=== PATIENT | female | born 1960 | race Caucasian/White ===

== ENCOUNTER 2024-12-16 09:50 | Outpatient (CLI) | payer OTHER, SELFPAY ==
--- NOTE | ~2024-12-16 | MR_ITS ---
MRI of the left shoulder Technique: Axial proton-density fat-sat images, coronal proton density fat-sat and T2 fat-sat images, and sagittal T1-weighted and T2 fat-sat images were acquired. Clinical History: Rotator cuff tear Findings: There is mild AC joint degenerative change with small amount of fluid in the joint space. C oracoclavicular, coracoacromial, and coracohumeral ligaments appear intact. There is full-thickness tear involving essentially the entire supraspinatus tendon. Fluid-filled gap measures approximately 2.7 x 2.4 cm in extent. Infraspinatus tendon appears to be intact. Subscapular is tendon is intact with advanced tendinosis. Tendon of the long head of the biceps is intact with pr obable severe intra-articular tendinosis. There is extensive intrasubstance degenerative signal in the superior labrum without definite detache d, discrete labral tear. Inferior glenohumeral ligament is intact. There is moderate glenohumeral joint effusion with fluid pa ssing through the rotator cuff defect into the subacromial/subdeltoid bursa. No significant degenerat elmer change of the glenohumeral joint. No muscle atrophy or edema. Impression: Complete, full-thickness tear of the entire supraspinatus tendon, as detailed above. Rotator cuff tendinosis, as above. Degenerative signal of the labrum without definite tear. Moderate glenohumeral joint effusion. Mild AC joint degenerative change. Reviewed, dictated and finalized at [facility]. Impression: Complete, full-thickness tear of the entire supraspinatus tendon, as detailed a lauri. Rotator cuff tendinosis, as above. Degenerative signal of the labrum without definite tear. Moderate glenohumeral joint effusion. Mild AC joint degenerative change.
--- OUTSIDE RECORDS SUMMARY | 2024-12-16 10:01 | XMS_ITS | Data Portability ---
Author Organization [facility] Address [address] [place] [address] Care Team Providers Care Ironworker Wire Fence Erector Name Role Phone SAMIR JORDAN River Rafting Guide GRACE ROSSI Gear Milling Machine Set Up Operator [phone] KRISTIAN MENDEZ Primary Care Provider CATARINO GOMEZ Broom Man Assessment No assessment recorded. Plan of Treatment Reminders Order Date Submit Date Provider Last Modified By Organization Details Last Modified Time Details Appointments ANY 15 2024 01:15P Krystal Mendez MD Not available Not available Not available Lab glucose, fingersti ck, blood 2023 024 [email or web address] In-Office Order, Internal Use Only DO Not Attach Compendium DO Not Attach Compendium, Do Not Delete/merge, [id number] 07/02/2024 16:23:14 HbA1c (hemoglob in A1c), blood 2023 024 [facility], [address], [address], [place], [address], 07/03/2024 06:19:14 HIV 1 + 2, meaningfu l use set 2023 024 [facility], [address], [address], [place], [address], 07/03/2024 06:19:15 Referral neurologi lonny surgeon referral 2024 025 [facility], [address] [place], [address], 11/23/2024 13:52:58 urologist referral 2023 024 JULIETTE Thomas MD, [address] [place] [address], [place], [address], 01/10/2024 18:36:23 Procedures None recorded. Surgeries None recorded. Imaging MRI, lumbar spine, w/o contrast 2023 024 [facility] [address] [place], [address], 03/12/2024 14:44:47 bone density 2023 024 [facility] ([facility]), [address] [place], [address], 10/01/2024 17:29:58 MAMMO, screening , digital, bilateral 2023 024 [facility] ([facility]), [address] [place], [address], 08/27/2024 16:02:59 Medication Orders Wellbutri n SR 150 mg tablet, 12 hr sustained -release 2024 025 [facility], [address] [place] [address], [phone], 11/28/2024 17:01:57 Patient TargetsNo targets recorded. Patient Instructions Encounter Date Encounter Id Patient Instructions Last Modified By Organization Details Last Modified Time 02/28/2024 [id number] When You Want to Lose Weight: Care Instructions [email or web address] Not available 02/28/2024 17:27:03 07/02/2024 [id number] knee arthritis: care instructions [email or web address] Not available 07/02/2024 16:27:43 learning about type 1 diabetes [email or web address] Not available 07/02/2024 16:23:14 type 1 diabetes: care instructions [email or web address] Not available 07/02/2024 16:23:14 When You Want to Lose Weight: Care Instructions [email or web address] Not available 07/02/2024 16:23:13 learning about high blood pressure [email or web address] Not available 07/02/2024 16:23:14 HIV testing: car e instructions [email or web address] Not available 07/02/2024 16:23:14 10/23/2024 [id number] sleep apnea: car e instructions [email or web address] Not available 10/23/2024 17:48:58 When You Want to Lose Weight: Care Instructions [email or web address] Not available 10/23/2024 17:48:57 learning about high blood pressure dlebeau Not available 10/23/2024 17:48:58 learning about mood disorders dlebeau Not available 10/23/2024 17:48:58 11/22/2024 [id number] lumbar spinal stenosis: care instructions [email or web address] Not available 11/22/2024 15:38:28 When You Want to Lose Weight: Care Instructions [email or web address] Not available 11/22/2024 15:38:28 learning about high blood pressure dlebeau Not available 11/22/2024 15:38:28 learning about mood disorders dlebeau Not available 11/22/2024 15:38:28 Patient was give n a copy of her referral and advised to call to schedule an appointment. [email or web address] Not available 11/22/2024 15:39:07 Reason for Referral Urologist Referral for Urge incontinence of urine Referring Physician: Jaelyn Stcok, Family Medicine, Encounter Date: 01/10/2024 Neurological Surgeon Referra l for Spinal stenosis of lumbar region Referring Physician: Kristian Mendez Family Medicine, Encounter Date: 11/22/2024 Results Created Date Observation Date Name Description Value Unit Range Abnormal Flag Note LastModifiedBy Organization Detail LastModifiedTime 01/09/20 24 01/09/2024 gluco se, finge rstic k, blood Blood Glucose: mg/dl 96 Not Available In-Off ice Order Internal Use Only DO Not Attach Compendium DO Not Attach Compendium, Do Not Delete/merge, [id number] 01/09/2024 15:54:03 12/09/07/03/2024 HEMOG LOBIN A1C hemoglobin A1C 7.0 % 4.8-5. 6 above high normal Predi abete s: 5.7 - 6.4 Diabe javon: >6.4 Glyce roland contr ol for adult s with diabe javon: <7.0 Not Available [facility] ([facility]) [address] [facility] [address], [place], [address], 07/03/2024 06:19:13 07/02/20 24 07/03/2024 HIV AB/P2 4 AG WITH REFLE X HIV Ab/P24 Ag screen NON REACTI VE nonrea ctive HIV-1 /HIV- 2 antib odies and HIV-1 p24 antig en were NOT detec edin. There is no labor atory evide nce of HIV infec tion. HIV Negat elmer Not Available [facility] ([facility]) [address] [facility] [address], [place], [address], 07/03/2024 06:19:15 07/02/20 24 07/02/2024 gluco se, finge rstic k, blood Blood Glucose: mg/dl 77 Not Available In-Off ice Order Internal Use Only DO Not Attach Compendium DO Not Attach Compendium, Do Not Delete/merge, [id number] 07/02/2024 15:57:29 01/17/20 24 01/17/2024 XR, lumba r spine No observ ation record ed. [address], [address], 02/28/2024 17:16:29 02/13/20 24 02/10/2024 PET, myoca rdial perfu cheryl No observ ation record ed. [facility] [address], [place], [address], 02/28/2024 17:16:29 02/13/20 24 02/10/2024 cardi ac stres s test No observ ation record ed. [facility] [address], [place], [address], 02/28/2024 17:16:28 02/27/20 24 2024 trans -thor acic echoc ardio gram (TTE) (PROC ) No observ ation record ed. [facility] [address], [place], [address], 08/27/2024 16:04:56 02/27/20 24 2024 stres s echoc ardio gram with doppl er color flow (PROC ) No observ ation record ed. [facility] [address], [place], [address], 02/28/2024 17:16:28 02/27/20 24 2024 US, doppl er, venou s No observ ation record ed. [facility] [address], [place], [address], 02/28/2024 17:16:28 02/27/20 24 2024 arter ial study , lower extre mity, compl ete No observ ation record ed. [facility] [address], [place], [address], 06/20/2024 15:44:36 02/27/20 24 2024 ankle brach ial index No observ ation record ed. [facility] [address], [place], [address], 02/28/2024 17:16:28 03/12/20 24 03/12/2024 MRI, shoul brock, w/wo contr ast No observ ation record ed. [facility] [address] [place], [address], 07/02/2024 16:15:46 03/12/20 24 03/12/2024 MRI, lumba r spine , w/o contr ast No observ ation record ed. [facility] [address] [place], [address], 07/02/2024 16:15:45 08/21/1908/21/2024 MAMMO , scree raeann, bilat eral No observ ation record ed. [facility] [address] [place], [address], 10/23/2024 12:45:45 08/21/19 25 08/21/2024 MAMMO , scree raeann, digit al, bilat eral No observ ation record ed. [facility] [address] [place], [address], 10/23/2024 12:45:45 09/20/19 25 09/20/2024 bone densi ty No observ ation record ed. [facility] [address] [place], [address], 10/23/2024 12:45:45 Result Notes None recorded. Problems Name Problem SNOMED Code Status Onset Date Resolution Date Notes Provider Name and Address Organization Details Recorded Time Insomnia 596385449 Active 2021 Not Available [facility] 4 07:38:09 Morbid obesity 077354753 Active 2021 Not Available [facility] 4 07:38:09 Stented coronary artery 876838487 Active 2021 Not Available [facility] 4 07:38:09 Obstructi ve sleep apnea syndrome 52137075 Active 2021 Does not tolerate cpap Not Available [facility] 4 07:38:09 Postopera tive hypothyro idism 12198004 Active 2022 Kristian Mendez MD Attn: Accounting ,[address] [place], [address] , [facility] 4 11:12:37 Hyperglyc emia due to type 1 diabetes mellitus 36808250529 9101 Active 2022 Kristian Mendez MD Attn: Accounting ,[address] [facility], [place], [address] , [facility] 4 11:12:37 Spinal stenosis of lumbar region 81155747 Active 2023 Kristian Mendez MD Attn: Accounting ,[address] [facility], [place], [address] , [facility] 4 22:41:51 Coronary atheroscl erosis 408399579 Active Kristian Mendez MD Attn: Accounting ,[address] [facility], [place], [address] , [facility] 4 16:24:09 Osteopeni a 525597354 Active 2024 Kristian Mendez MD Attn: Accounting ,[address] [facility], [place], [address] , [facility] 5 16:45:23 Type 1 diabetes mellitus 95724962 Active Managed by endocrine (Dr Stanley) Kristian Mendez MD Attn: Accounting ,[address] [facility], [place], [address] , [facility] 4 10:50:49 Periphera l nerve disease 554551611 Active Not Available [facility] 4 07:38:09 Essential hypertens ion 91740914 Active Not Available [facility] 4 07:38:09 Glaucoma 22490617 Active Not Available [facility] 4 07:38:09 Depressiv e disorder 94736366 Active Not Available [facility] 4 07:38:09 Menopause present 412084817 Active Not Available [facility] 4 07:38:09 Hypothyro idism 06825311 Active Not Available [facility] 4 07:38:09 Pain in right knee Active Not Available [facility] 4 07:38:09 Problem Notes None recorded. Procedures Surgical History Date Name Laterality Status Provider Name and Address Organization Details Recorded Time 5 Date of Last Mammogram completed Lori Bolivar MA [facility] 08/27/2024 16:02:33 4 procedure on foot completed Lori Bolivar MA [facility] 01/10/2024 15:49:45 0 Date of Last Pap Smear completed Lori Bolivar MA [facility] 01/10/2024 16:04:58 6 Colonoscopy with biopsy completed Bonny Kim RN [facility] 05/11/2016 22:50:32 6 Egd biopsy single/multiple completed Bonny Kim RN [facility] 05/11/2016 22:51:29 4 Most Recent Mammogram completed Jillian Espinoza [facility] 05/13/2015 14:44:54 5 Caesarean Section completed Lara Esteves MA [facility] 06/27/2014 15:39:17 2 Caesarean Section completed Lara Esteves MA [facility] 06/27/2014 15:39:17 Knee Surgery completed Ahmet Knutson MA [facility] 10/06/2020 16:55:53 Angioplasty With Stent completed Ahmet Knutson MA [facility] 10/06/2020 16:56:12 Carpal tunnel surgery completed Lori Bolivar MA [facility] 01/10/2024 15:50:50 Carpal tunnel surgery completed Lori Bolivar MA [facility] 01/10/2024 15:50:38 Tubal Ligation completed Lara Esteves MA [facility] 06/27/2014 15:39:17 Imaging Results Imaging Date Name Status LastModified by Organization Details LastModified Time 01/17/2024 XR, lumbar spine completed [facility] [address] [place], [address], 02/28/2024 17:16:29 02/10/2024 PET, myocardial perfusion completed [facility] [address], [place], [address], 02/28/2024 17:16:29 02/10/2024 cardiac stress test completed [facility] [address], [place], [address], 02/28/2024 17:16:28 2024 trans-thoracic echocardiogram (TTE) (PROC) completed [facility] [address], [place], [address], 08/27/2024 16:04:56 2024 stress echocardiogram with doppler color flow (PROC) completed [facility] [address], [place], [address], 02/28/2024 17:16:28 2024 US, doppler, venous completed [facility] [address], [place], [address], 02/28/2024 17:16:28 2024 arterial study, lower extremity, complete completed [facility] [address], [place], [address], 06/20/2024 15:44:36 2024 ankle brachial index completed [facility] [address], [place], [address], 02/28/2024 17:16:28 03/12/2024 MRI, shoulder, w/wo contrast completed [facility] [address] [place], [address], 07/02/2024 16:15:46 03/12/2024 MRI, lumbar spine, w/o contrast completed [facility] [address] [place], [address], 07/02/2024 16:15:45 08/21/2024 MAMMO, screening, bilateral completed [facility] [address] [place], [address], 10/23/2024 12:45:45 08/21/2024 MAMMO, screening, digital, bilateral completed [facility] ([facility] [address] [place], [address], 10/23/2024 12:45:45 09/20/2024 bone density completed [facility] [address] [place], [address], 10/23/2024 12:45:45 Procedure Notes None recorded. Medical Equipment None Reported. Allergies Allergen ID Allergen Name Allergen Category Reaction Reaction Severity Criticality Documentation Date Start Date Code Code System Note Provider Name and Address Organization Details Recorded Time 040177 Tylenol with Codeine medicatio n itching nausea vomiting severe severe severe Not available 07/26/2019 85758 6 RxNorm [facility] [place] [facility] 15:01:48 477544 metoprolo l Not available dizziness Not available Not available 11/01/20232022 6918 RxNorm Kristian Mendez MD Attn: Kendra martínez,[address] [place], [address], [facility] 4 11:12:47 085642 atorvasta tin calcium medicatio n myalgias (muscle pain) Not available Not available 11/01/20232022 16481 RxNorm Kristian Mendez MD Attn: Kendra martínez,[address] [place], [address], [facility] 4 11:12:47 5616 codeine medicatio n Not available Not available Not available 06/27/2014 2670 RxNorm Other react ions and sever ities : 'Adve rse react ion to subst ance' . Kristian Mendez MD Attn: Kendra martínez,[address] [place], [address], [facility] 4 16:25:51 Medications Name Sig Start Date Stop Date Status Note LastModified by Organization Details LastModified Time omnipod op5 controlle r USE FOR INSULIN ADMINIST RATION 10/31 completed Not Available Not Available Not Available Prescript ion - Prior Authoriza tion Request 07/26 completed Not Available Not Available Not Available cyclobenz aprine 10 mg tablet 07/26 completed Not Available Not Available Not Available atorvasta tin 40 mg tablet Take 1 tablet every day by oral route for 90 days. 05/05 completed Not Available Not Available Not Available methocarb nael 500 mg tablet 07/26 completed Not Available Not Available Not Available levothyro xine 175 mcg tablet TAKE ONE TABLET BY MOUTH EVERY MORNING FOR THYROID 06/20 completed Not Available Not Available Not Available bupropion HCl SR 150 mg tablet,12 hr sustained -release TAKE ONE TABLET BY MOUTH TWICE DAILY EVERY MORNING AND EVERY EVENING FOR mood active Not Available Not Available No t Available levothyro xine 137 mcg tablet TAKE 1 Tablet BY MOUTH ONCE EVERY DAY IN THE MORNING BEFORE BREAKFAS T FOR THYROID active Not Available Not Available No t Available atorvasta tin 80 mg tablet TAKE ONE TABLET BY MOUTH DAILY AT BEDTIME FOR CHOLESTE ROL active Not Available Not Available No t Available prednison e 10 mg tablet TAKE ONE TABLET BY MOUTH THREE TIMES DAILY FOR 3 DAYS, THEN TAKE ONE TABLET TWICE DAILY FOR 2 DAYS, THEN TAKE ONE TABLET ONCE FOR ONE DAY 10/23 completed Not Available Not Available Not Available gabapenti n 600 mg tablet Take 1 tablet 3 times a day by oral route as directed for 90 days. 10/29 completed Not Available Not Available Not Available doxycycli ne hyclate 100 mg capsule Take 1 capsule by mouth every day 07/26 completed Not Available Not Available Not Available Glucagon Emergency Kit 1 mg solution for injection Use as directed per packagin g label. Should be used SC route. active Not Available Not Available No t Available doxepin 25 mg capsule TAKE ONE CAPSULE BY MOUTH AT BEDTIME NEEDED active Not Available Not Available No t Available hydrocodo ne 5 mg-acetam inophen 325 mg tablet 07/26 completed Not Available Not Available Not Available Nystop 100,000 unit/gram topical powder APPLY TO THE AFFECTED AREA(S) THREE TIMES DAILY, IN THE MORNING, AT MID-DAY & AT BEDTIME active Not Available Not Available No t Available Claritin 10 mg tablet Take 1 tablet every day by oral route as directed . 07/26 completed Not Available Not Available Not Available sucralfat e 1 gram tablet TAKE 1 TABLET BY MOUTH TWO TIMES A DAY FOR STOMACH 02/15 completed Not Available Not Available Not Available lisinopri l 20 mg tablet TAKE ONE TABLET BY MOUTH EVERY DAY FOR BLOOD PRESSURE 06/20 completed Not Available Not Available Not Available ondansetr on HCl 4 mg tablet active Not Available Not Available No t Available clopidogr el 75 mg tablet TAKE ONE TABLET BY MOUTH EVERY MORNING TO PREVENT STROKE active Not Available Not Available No t Available ciproflox acin 500 mg tablet active Not Available Not Available No t Available sulfameth oxazole 800 mg-trimet hoprim 160 mg tablet TAKE ONE TABLET EVERY TWELVE HOURS BY MOUTH FOR FIVE DAYS 10/27 completed Not Available Not Available Not Available aspirin 81 mg tablet,de layed release Take 1 tablet every day by oral route as directed . active Not Available Not Available No t Available doxycycli ne monohydra te 100 mg tablet Take 1 tablet twice a day by oral route for 10 days. active Not Available Not Available No t Available tramadol 50 mg tablet TAKE ONE TABLET BY MOUTH FOUR TIMES DAILY NEEDED FOR PAIN active Not Available Not Available No t Available bisoprolo l fumarate 5 mg tablet Take 1 tablet twice a day by oral route for 90 days. 07/26 completed Not Available Not Available Not Available potassium chloride ER 20 mEq tablet,ex tended release(p art/cryst ) TAKE ONE TABLET BY MOUTH THREE TIMES A WEEK FOR POTASSIU M REPLACEM ENT active Not Available Not Available No t Available famotidin e 20 mg tablet active Not Available Not Available Not Available Nitrostat 0.4 mg sublingua l tablet 05/05 completed Not Available Not Available Not Available Humalog U-100 Insulin 100 unit/mL subcutane ous solution INJECT VIA OMNIPOD. MAX DAILY DOSE OF 100 UNITS active Not Available Not Available No t Available OneTouch Ultra Test strips USE TO TEST BLOOD SUGAR 4-6 TIMES DAILY active Not Available Not Available No t Available meclizine 25 mg tablet take 1 to 2 tablets by mouth three times daily as needed for dizzines s 05/05 completed Not Available Not Available Not Available benzonata te 100 mg capsule active Not Available Not Available Not Available hydrocodo ne 7.5 mg-acetam inophen 325 mg tablet TAKE ONE TABLET BY MOUTH EVERY 6 HOURS NEEDED FOR MODERATE (4-6) PAIN 06/15 completed Not Available Not Available Not Available cephalexi n 500 mg capsule TAKE ONE CAPSULE BY MOUTH TWICE DAILY EVERY MORNING AND EVERY EVENING UNTIL ALL TAKEN FOR INFECTIO N active UTI (urgent care) Not Available Not Available Not Available metformin 1,000 mg tablet Take 1 tablet twice a day by oral route for 90 days. 02/15 completed Not Available Not Available Not Available nitrofura ntoin macrocrys olivia 100 mg capsule 05/05 completed Not Available Not Available Not Available lisinopri l 10 mg tablet TAKE ONE TABLET BY MOUTH EVERY MORNING FOR BLOOD PRESSURE active Not Available Not Available No t Available glimepiri de 4 mg tablet Take 1 tablet every day by oral route for 90 days. active Not Available Not Available No t Available promethaz ine 25 mg tablet 05/05 completed Not Available Not Available Not Available glucose 4 gram chewable tablet active Not Available Not Available Not Available gabapenti n 300 mg capsule TAKE THREE CAPSULES BY MOUTH THREE TIMES DAILY, IN THE MORNING, AT MID-DAY & AT BEDTIME FOR PAIN MANAGEME NT active Not Available Not Available No t Available diclofena c sodium 75 mg tablet,de layed release TAKE 1 TABLET BY MOUTH TWICE DAILY NEEDED FOR PAIN 07/26 completed Not Available Not Available Not Available levothyro xine 200 mcg tablet TAKE 1 TABLET BY MOUTH EVERY MORNING FOR THYROID 02/15 completed Not Available Not Available Not Available lisinopri l 5 mg tablet TAKE 1 TABLET BY MOUTH DAILY 05/05 completed Not Available Not Available Not Available furosemid e 20 mg tablet TAKE ONE TABLET BY MOUTH ONCE WEEKLY IN THE MORNING FOR FLUID RETENTIO N active Not Available Not Available No t Available metoprolo l succinate ER 25 mg tablet,ex tended release 24 hr 03/17 completed Not Available Not Available Not Available Novolog U-100 Insulin aspart 100 unit/mL subcutane ous solution Inject by subcutan eous route per insulin pump protocol (three month supply with refills) 01/05 completed gets per [address] [place] Med[facility] Not Available Not Available Not Available estradiol 0.01% (0.1 mg/gram) vaginal cream INSERT 1 APPLICAT ORFUL VAGINALL Y 3 TIMES A WEEK 02/15 completed Not Available Not Available Not Available levofloxa emerita 750 mg tablet TAKE 1 TABLET BY MOUTH EVERY DAY 02/01 completed Not Available Not Available Not Available zolpidem 10 mg tablet TAKE ONE TABLET BY MOUTH AT BEDTIME NEEDED active Not Available Not Available No t Available methylpre dnisolone 4 mg tablets in a dose pack 07/26 completed Not Available Not Available Not Available lisinopri l 40 mg tablet TAKE 1 TABLET BY MOUTH DAILY TO LOWER BLOOD PRESSURE 10/27 completed Not Available Not Available Not Available doxycycli ne hyclate 100 mg tablet 02/19 completed Not Available Not Available Not Available gentamici n 0.1 % topical ointment APPLY TO THE AFFECTED AREA(S) of TO WOUND DAILY. cover with gauze 10/31 completed Not Available Not Available Not Available naproxen 500 mg tablet Take 1 tablet by mouth twice a day as needed 07/26 completed Not Available Not Available Not Available levothyro xine 112 mcg tablet 02/15 completed Not Available Not Available Not Available Ventolin HFA 90 mcg/actua tion aerosol inhaler active Not Available Not Available Not Available Paradigm Buda 3 mL Change every 2 days 07/26 completed Not Available Not Available Not Available Silhouett e infusion set Change every 2 days as directed 07/26 completed Not Available Not Available Not Available Pneumovax -23 25 mcg/0.5 mL injection syringe 07/26 completed Not Available Not Available Not Available Novolog PenFill U-100 Insulin aspart 100 unit/mL subcutane ous cartridg Inject 3 mL as needed by subcutan eous route. 07/26 completed Not Available Not Available Not Available ciclopiro x 0.77 % topical cream APPLY TO THE AFFECTED AREA(S) ON FEET ONCE OR TWICE DAILY 01/09 completed Not Available Not Available Not Available ezetimibe 10 mg tablet TAKE ONE TABLET BY MOUTH ONCE DAILY AT BEDTIME FOR CHOLESTE ROL active Not Available Not Available No t Available metoprolo l tartrate 25 mg tablet TAKE 1 TABLET BY MOUTH EVERY DAY 07/26 completed Not Available Not Available Not Available nitrofura ntoin monohydra te/macroc rystals 100 mg capsule TAKE ONE CAPSULE BY MOUTH EVERY 12 HOURS 10/27 completed Not Available Not Available Not Available Vitamin B-12 10/31 completed Not Available Not Available Not Available vitamin E 10/31 completed Not Available Not Available Not Available Fish Oil active Not Available Not Avai lable Not Available Apidra U-100 Insulin 100 unit/mL subcutane ous solution active Not Available Not Available Not Available peg 3350 240 gram-elec trolytes 22.72 gram-6.72 g-5.84 g powdr for soln 05/05 completed Not Available Not Available Not Available Calcium 600 + D(3) 600 mg-10 mcg (400 unit) tablet Take 2 tablets every day by oral route, for strong bones. 2024 active Not Available Not Available Not Avai lable Travel Sickness (meclizin e) 25 mg chewable tablet 05/05 completed Not Available Not Available Not Available [employer] (w-vitami ns) 03/17 completed Not Available Not Available Not Available TRUEplus Lancets 28 gauge 10/31 completed Not Available Not Available Not Available Creon 36,000 unit-114, 000 unit-180, 000 unit capsule,d elayed release TAKE ONE CAPSULE BY MOUTH THREE TIMES DAILY IN THE MORNING & AT3PM & AT BEDTIME active Not Available Not Available No t Available Trulicity 0.75 mg/0.5 mL subcutane ous pen injector Take 0.5 ml under the skin every week. 10/23 completed Not Available Not Available Not Available Ozempic 0.25 mg or 0.5 mg (2 mg/1.5 mL) subcutane ous pen injector INJECT 0.25MG UNDER THE SKIN ONCE WEEKLY X 4 WEEKS THEN INCREASE TO 0.5MG ONCE WEEKLY THEREAFT ER 02/15 completed Not Available Not Available Not Available Dexcom G6 Sensor device USE DIRECTED , CHANGE EVERY 10 DAYS active Not Available Not Available No t Available Dexcom G6 Transmitt er device USE DIRECTED , CHANGE EVERY THREE MONTHS active Not Available Not Available No t Available Omnipod Dash Pods (Gen 4) subcutane ous cartridge CHANGE pod EVERY 3 DAYS 10/31 completed Not Available Not Available Not Available OneTouch Ultra2 Meter USE DIRECTED active Not Available Not Available No t Available OneTouch Delica Plus Lancet 33 gauge USE TO TEST BLOOD SUGAR 4-6 times daily active Not Available Not Available No t Available Flublok Quad (PF) 180 mcg (45 mcg x 4)/0.5 mL IM syringe 07/26 completed Not Available Not Available Not Available Baqsimi 3 mg/actuat ion nasal spray active Not Available Not Available Not Available FreeStyle Kaylee 2 Sensor kit CHANGE EVERY 14 DAYS 03/29 completed Not Available Not Available Not Available FreeStyle Kaylee 2 Robinson USE DIRECTED 03/29 completed Not Available Not Available Not Available Ozempic 1 mg/dose (4 mg/3 mL) subcutane ous pen injector INJECT 1MG UNDER THE SKIN EVERY WEEK AT DINNER 06/20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
--- OUTSIDE RECORDS SUMMARY | 2024-12-16 10:01 | XMS_ITS | Data Portability ---
Author Organization [place] [facility] [employer], Main Office Address [address] [place] [address] Assessment Encounter Date Assessment Date Assessment LastModified by Organization Details LastModified Time 12/29/2023 12/29/2023 By history and exam the patient is noted to have impingement with rotator cuff type tendinitis possibly partial-thicknes s tearing. She does have good strength today but lot of pain with testing. We talked about treatment options we are going to start with a course of physical therapy for range of motion strengthening, we talked about a shot of cortisone and oral prednisone she wanted proceed therefore under sterile conditions I injected the patient's left shoulder subacromial space in the office with 4 cc of 0.5% bupivacaine and 20 mg of Kenalog. Patient tolerated procedure well. I will see her back after 1 month of treatment see how she is doing. If her symptoms continue to be significant we will get an MRI scan. She voiced understanding agrees above plan she will call for any further problems difficulties or questions. Not available 12/29/2023 14:26:03 02/06/2024 02/06/2024 The patient has rotator cuff tendinitis and impingement of the left shoulder. We talked about treatment options from here she is going to continue with her physical therapy she has only had 2 sessions so far I have advised her to work on it every day on her own at home as well. It is too soon for another shot of cortisone she can not take oral anti-inflammator y medication due to the fact that she is on chronic blood thinners so we are a bit restricted in what we can do. She states that the oral prednisone medication made her blood sugar get up above 400 so we are going to avoid that as well. I will see her back after therapy is completed give it time I will see her back in 6-8 weeks for another recheck of her symptoms continue an MRI scan may be indicated. She voiced understanding agrees above plan she will call for any further problems difficulties or questions. Not available 02/06/2024 10:54:16 11/26/2024 11/26/2024 The patient has what appears to be a significant full-thickness rotator cuff tendon tear of the left shoulder with AC joint arthrosis and what appears to be a degenerative labral tear also. We are somewhat limited in her options she can not take oral anti-inflammator y medication and oral prednisone caused her blood sugar to go over 400. The MRI scan shows significant findings however this is now 9-month-old she has other multiple medical problems including insulin-dependen t diabetes hypertension history of heart stent placement dyslipidemia and exocrine pancreatic insufficiency. I will have Dr. Gabriel review her MRI scan see if he thinks it is worth repeating the MRI scan, she is considering surgical repair however we will need to get Dr. Gabriel s opinion on this. We talked about the fact that the rotator cuff may be a scarred retracted or irrepairable at this point. Also she is at a higher risk of failure of the repair wound healing problems and other postop complications due to her multiple medical issues. We will see what Dr. Gabriel wants to do with her shoulder from here. She voiced understanding agrees with the above plan we will get her set up with an appointment in the near future. She will call for any further problems difficulties or questions. Not available 11/26/2024 11:41:31 Plan of Treatment Reminders Order Date Submit Date Provider Last Modified By Organization Details Last Modified Time Details Appointments Any 5 2024 10:25A Krystal Gabriel MD Not available Not available Not available Lab lipid panel, serum 2022 023 [facility] (One Call Scheduling), [address] [place], [address], 01/31/2023 19:13:53 HbA1c (hemoglob in A1c), blood 2022 023 [facility] (One Call Scheduling), [address] [place], [address], 02/01/2023 01:28:40 CMP, serum or plasma 2022 023 [facility] (One Call Scheduling), [address] [place], [address], 01/31/2023 19:13:49 microalbu min/creat inine, mass ratio, urine [email or web address] (One Call Scheduling), [address] [place], [address], 12/07/2022 10:04:02 C-peptide , serum 2022 023 [facility] (One Call Scheduling), [address] [place], [address], 02/01/2023 12:12:24 T3, free, serum or plasma 2022 023 [facility] (One Call Scheduling), [address] [place], [address], 01/31/2023 19:27:45 TSH, serum or plasma 2022 023 [facility] (One Call Scheduling), [address] [place], [address], 01/31/2023 19:40:17 T4, free, serum 2022 023 [facility] (One Call Scheduling), [address] [place], [address], 01/31/2023 19:27:50 Referral physical therapist referral - Please contact patient to schedule. ..Thank you [id number] [facility], [address] [place], [address], 01/18/2024 08:20:29 Procedures injection /aspirati on joint/bur sa (PROC) 2023 024 [email or web address] In-Office Order, Internal Use Only DO Not Attach Compendium DO Not Attach Compendium, Do Not Delete/merge, [id number] 12/29/2023 14:26:45 Surgeries None recorded. Imaging XR, shoulder 2023 024 [email or web address] [facility], [address], [place], [address], 12/29/2023 14:53:30 Medication Orders bupivacai ne HCl 0.5 % (5 mg/mL) injection solution 2023 024 [address] [facility], [address] [place] [address], [id number], 12/29/2023 14:53:30 Kenalog 10 mg/mL suspensio n for injection 2023 024 [address] [facility], [address] [place] [address], [id number], 12/29/2023 14:53:30 prednison e 10 mg tablets in a dose pack [address] [facility], [address] [place] [address], [id number], 02/08/2024 17:19:46 Patient TargetsNo targets recorded. Patient InstructionsNo instructions recorded. Reason for Referral Physical Therapist Referral for Pain of left shoulder joint Please contact patient to schedule...Thank you Referring Physician: Jovita Donnelly, Orthopedic Surgery, Encounter Date: 12/29/2023 Results Created Date Observation Date Name Description Value Unit Range Abnormal Flag Note LastModifiedBy Organization Detail LastModifiedTime 05/24/20 22 05/26/2022 JOSE RAFAEL C ANTIB ODIES PROFI LE T-transgluta minase IgA <2 U/mL 0-3 Negat lilia 0 - 3 Weak Posit lilia 4 - 10 Posit lilia >10 . Tissu e Trans gluta jennifer e (tTG) has been ident ified as the endom ysial antig en. Studi es have demon str- ated that endom ysial IgA antib odies have over 99% speci ficit y for glute n sensi tive enter opath y. Not Available [facility] (Lab) [address] [place], [address], 05/26/2022 14:10:54 05/24/20 22 05/26/2022 JOSE RAFAEL C ANTIB ODIES PROFI LE T-transgluta minase IgG <2 U/mL 0-5 Negat lilia 0 - 5 Weak Posit lilia 6 - 9 Posit lilia >9 Not Available [facility] (Lab) [address] [place], [address], 05/26/2022 14:10:54 05/24/20 22 05/26/2022 JOSE RAFAEL C ANTIB ODIES PROFI LE deamidated gliadin abs, IgG 4 units 0-19 Negat lilia 0 - 19 Weak Posit lilia 20 - 30 Moder ate to Stron g Posit lilia >30 Not Available [facility] (Lab) [address] [place], [address], 05/26/2022 14:10:54 05/24/20 22 05/26/2022 JOSE RAFAEL C ANTIB ODIES PROFI LE endomysial antibody IgA negati ve negati ve Not Available [facility] (Lab) [address] [place], [address], 05/26/2022 14:10:54 05/24/20 22 05/26/2022 JOSE RAFAEL C ANTIB ODIES PROFI LE immunoglobul in A, qn, serum 266 mg/dL 87-352 Perfo rmed at: CB - [facility] [address] [place] [address] [facility] Lab Direc tor: Jorge giordano PhD, Phone : [phone] Not Available [facility] (Lab) [address] [place], [address], 05/26/2022 14:10:54 05/24/20 22 05/26/2022 JOSE RAFAEL C ANTIB ODIES PROFI LE deamidated gliadin abs, IgA 7 units 0-19 Negat lilia 0 - 19 Weak Posit lilia 20 - 30 Moder ate to Stron g Posit lilia >30 Not Available [facility] (Lab) [address] [place], [address], 05/26/2022 14:10:54 05/24/20 22 05/24/2022 HEMOG LOBIN A1C HA1C 6.6 % 4.0-6. 0 high Diabe shena Scree raeann Crite umm: <5.7% Consi stent with absen ce of diabe shena 5.7-6 .4% Consi stent with incre ased risk for diabe shena (pred iabet es) >OR=6 .5% Consi stent with diabe shena REFER ENCE: Diabe shena Care 2016, 39(Villalpando ppl.1 ):s13 -s22 Not Available [facility] (Lab) [address] [place], [address], 05/24/2022 20:25:34 05/24/2005/24/2022 TSH thyroid-stim ulating hormone <0.015 uIU/m L 0.465- 4.680 low Not Available [facility] (Lab) [address] [place], [address], 05/24/2022 19:26:20 05/24/2005/24/2022 T4 FREE free T4 2.03 NG/dL 0.78-2 .19 Not Available [facility] (Lab) [address] [place], [address], 05/24/2022 19:17:23 05/24/20 22 05/24/2022 COMP MET PANEL /LIVE R sodium 140 mmol/ L 137-14 5 Not Available [facility] (Lab) [address] [place], [address], 05/24/2022 18:53:15 05/24/20 22 05/24/2022 COMP MET PANEL /LIVE R potassium 4.6 mmol/ L 3.5-5. 1 Not Available [facility] (Lab) [address] [place], [address], 05/24/2022 18:53:15 05/24/20 22 05/24/2022 COMP MET PANEL /LIVE R chloride 103 mmol/ L 98-107 Not Available [facility] (Lab) [address] [place], [address], 05/24/2022 18:53:15 05/24/20 22 05/24/2022 COMP MET PANEL /LIVE R carbon dioxide 26 mmol/ L 22-30 Not Available [facility] (Lab) [address] [facility] [place], [address], 05/24/2022 18:53:15 05/24/20 22 05/24/2022 COMP MET PANEL /LIVE R anion gap 15.6 mmol/ L 14-22 Not Available [facility] (Lab) [address] [place], [address], 05/24/2022 18:53:15 05/24/20 22 05/24/2022 COMP MET PANEL /LIVE R glucose 173 mg/dL 70-99 high Not Available [facility] (Lab) [address] [place], [address], 05/24/2022 18:53:15 05/24/20 22 05/24/2022 COMP MET PANEL /LIVE R BUN 11 mg/dL 8-19 Not Available [facility] (Lab) [address] [place], [address], 05/24/2022 18:53:15 05/24/20 22 05/24/2022 COMP MET PANEL /LIVE R creatinine 0.84 mg/dL 0.66-1 .25 Not Available [facility] (Lab) [address] [place], [address], 05/24/2022 18:53:15 05/24/20 22 05/24/2022 COMP MET PANEL /LIVE R GFR >60 Refer ence Range : [place] ge GFR Healt hy Adult : >60 mL/mi n/1.7 3 m2 Chron ic Kidne y Disea se: 15-60 mL/mi n/1.7 3 m2 Kidne y Failu re: <15/m L/min /1.73 m2 www.n iddk. [facility].g ov The MDRD study equat ion has not been valid ated in child darwin <18 years of age; pregn ant women ; the elder ly >85 years of age; or in some racia l or ethni c subgr oups, such as Hispa nics. Outsi de the valid ated elmo eters , estim ated GFR is less accur ate, requi ring clini lonny judgm ent on a case- by-ca se basis . Clini lonny inter preta tion for other races and ages must be made by the clini maritza. The MDRD study equat ion has not been valid ated for the evalu ation of serum creat inine relat ed to nutri shilpi l statu s or medic ation usage . For perso ns <18 years of age, a pedia tric GFR calcu lator is avail able on the [facility] websi te: https ://autumn walter.citlali rodriguez.o rg/pr ofess ional s/kdo qi/gf r_cal culat or Not Available [facility] (Lab) [address] [place], [address], 05/24/2022 18:53:15 05/24/20 22 05/24/2022 COMP MET PANEL /LIVE R alkaline phosphatase 117 U/L 38-126 Not Available [facility] (Lab) [address] [place], [address], 05/24/2022 18:53:15 05/24/20 22 05/24/2022 COMP MET PANEL /LIVE R alanine aminotransfe rase 13 U/L 0-[address] [facility] (Lab) [address] [place], [address], 05/24/2022 18:53:15 05/24/20 22 05/24/2022 COMP MET PANEL /LIVE R aspartate aminotransfe rase 22 U/L 15-[address] [facility] (Lab) [address] [place], [address], 05/24/2022 18:53:15 05/24/20 22 05/24/2022 COMP MET PANEL /LIVE R bilirubin, total 0.40 mg/dL 0.20-1 .30 Not Available [facility] (Lab) [address] [place], [address], 05/24/2022 18:53:15 05/24/20 22 05/24/2022 COMP MET PANEL /LIVE R bilirubin, conjugated (direct) 0.00 mg/dL 0.00-0 .30 Not Available [facility] (Lab) [address] [place], [address], 05/24/2022 18:53:15 05/24/20 22 05/24/2022 COMP MET PANEL /LIVE R biliurubin,u ncong. (indirect) 0.30 mg/dL 0.00-1 .1 Not Available [facility] (Lab) [address] [place], [address], 05/24/2022 18:53:15 05/24/20 22 05/24/2022 COMP MET PANEL /LIVE R calcium 9.2 mg/dL 8.4-10 .2 Not Available [facility] (Lab) [address] [place], [address], 05/24/2022 18:53:15 05/24/20 22 05/24/2022 COMP MET PANEL /LIVE R total protein 6.7 g/dL 6.3-8. 2 Not Available [facility] (Lab) [address] [place], [address], 05/24/2022 18:53:15 05/24/20 22 05/24/2022 COMP MET PANEL /LIVE R albumin 4.1 g/dL 3.4-5. 0 Not Available [facility] (Lab) [address] [place], [address], 05/24/2022 18:53:15 05/24/20 22 05/24/2022 COMP MET PANEL /LIVE R globulin 2.6 g/dL 2.6-4. 2 Not Available [facility] (Lab) [address] [place], [address], 05/24/2022 18:53:15 05/24/2005/24/2022 COMP MET PANEL /LIVE R A/G ratio 1.6 ratio 1.0-2. 0 Not Available [facility] (Lab) [address] [place], [address], 05/24/2022 18:53:15 05/24/20 22 05/24/2022 LIPID PANEL cholesterol 130 mg/dL 140-19 9 low [facility] NSUS RECOM MENDA TION FOR LEAH STERO L: ADULT CHILD LOW RISK: <200 <170 BORDE RLINE : <200- 239 ----- HIGH RISK: >240 >200 Not Available [facility] (Lab) [address] [place], [address], 05/24/2022 18:53:09 05/24/2005/24/2022 LIPID PANEL triglyceride s 229 mg/dL 0-150 high [facility]EW[facility] NSUS REPOR T RECOM MENDA TION FOR TRIGL YCERI ANALI: ADULT CHILD LOW RISK: <150 ----- BODER LINE: 150-1 99 ----- HIGH RISK: >200 ----- Not Available [facility] (Lab) [address] [place], [address], 05/24/2022 18:53:09 05/24/20 22 05/24/2022 LIPID PANEL HDL cholesterol 41 mg/dL 40- Not Available [facility] (Lab) [address] [place], [address], 05/24/2022 18:53:09 05/24/20 22 05/24/2022 LIPID PANEL LDL cholesterol, calculated 43 mg/dL 0-130 [facility]EW[facility] NSUS REPOR T RECOM MENDA TIONS FOR LDL: ADULT CHILD LOW RISK <130 <110 (OPTI MAL LDL) <100 ----- BORDE RLINE : 130-1 59 ----- HIGH RISK: >160 >130 A TRIGL YCERI DE RESUL T >400 INVAL IDATE S THE CALCU LATIO N FOR LDL FRACT IONAT ION - THE LDL RESUL T WILL NOT BE REPOR KANU. Not Available [facility] (Lab) [address] [place], [address], 05/24/2022 18:53:09 05/24/2005/24/2022 MICRO ALBUM N RNDM W/CRE AT RATIO ur creat 106.99 mg/dL REFER ENCE RANGE NOT ESTAB LISHE D FOR RANDO M URINE CREAT ININE Not Available [facility] (Lab) [address] [place], [address], 05/24/2022 18:50:46 05/24/20 22 05/24/2022 MICRO ALBUM N RNDM W/CRE AT RATIO microalbumin , urine 33.4 mg/L 0.0-16 .6 high Not Available [facility] (Lab) [address] [place], [address], 05/24/2022 18:50:46 05/24/20 22 05/24/2022 MICRO ALBUM N RNDM W/CRE AT RATIO microalbumin /creatinine ratio 31 mcg/m g 0-29 high THE AMERI CAN DIABE SHENA ASSOC IATIO N DEFIN ES ABNOR MALIT IES IN ALBUM IN EXCRE TION FOLLO WS: CATEG ORY RESUL T (MCG/ MG CREAT ININE ) PAPI L <30 MICRO ALBUM INURI A 30-29 9 CLINI LONNY ALBUM INURI A > OR = 300 THE ADA RECOM MENDS THAT 2 OF 2 SPECI MENS COLLE CTED WITHI N A 3- TO 6-MON TH PERIO D BE ABNOR MAL BEFOR E CONSI RAUL G A PATIE NT TO HAVE CROSS ED ONE OF THESE DIAGN OSTIC THRES HOLDS . REFER ENCE: DIABE SHENA CARE, VOL. 26: [id number] 96, 2002 Not Available [facility] (Lab) [address] [place], [address], 05/24/2022 18:50:46 05/27/20 22 06/02/2022 PANCR EATIC ELAST ASE, FECAL pancreatic elastase, fecal 88 ug_el ast./ g >200 low Res ults verif ied by repeinés sams Sever e Pancr eatic Insuf ficie ncy: <100 Moder ate Pancr eatic Insuf ficie ncy: 100 - 200 Papi l: >200 Perfo rmed at: - [facility] [address] [facility] [place] [address] Lab Direc tor: Berna lerma MD, Phone : [phone] Not Available [facility] (Lab) [address] [place], [address], 06/02/2022 00:07:08 05/27/20 22 05/28/2022 FECAL FAT, QUALI TATIV E fats, neutral increa sed Papi l (<60 Dropl ets/H PF) Not Available [facility] (Lab) [address] [place], [address], 05/28/2022 14:11:43 05/27/20 22 05/28/2022 FECAL FAT, QUALI TATIV E fats, total increa sed Papi l (<100 Dropl ets/H PF) Perfo rmed at: CB - [facility] Miriam gleason [address] [facility], [place] [address] Lab Direc tor: Jorge giordano PhD, Phone : [phone] Not Available [facility] (Lab) [address] [place], [address], 05/28/2022 14:11:43 02/01/2001/31/2023 MICRO ALBUM N RNDM W/CRE AT RATIO ur creat 193.82 mg/dL REFER ENCE RANGE NOT ESTAB LISHE D FOR RANDO M URINE CREAT ININE Not Available [facility] (Lab) [address] [place], [address], 01/31/2023 18:38:01 02/01/20 23 01/31/2023 MICRO ALBUM N RNDM W/CRE AT RATIO microalbumin , urine 26.3 mg/L 0.0-16 .6 high Not Available [facility] (Lab) [address] [place], [address], 01/31/2023 18:38:01 02/01/20 23 01/31/2023 MICRO ALBUM N RNDM W/CRE AT RATIO microalbumin /creatinine ratio 14 mcg/m g 0-29 THE AMERI CAN DIABE SHENA ASSOC IATIO N DEFIN ES ABNOR MALIT IES IN ALBUM IN EXCRE TION FOLLO WS: CATEG ORY RESUL T (MCG/ MG CREAT ININE ) PAPI L <30 MICRO ALBUM INURI A 30-29 9 CLINI LONNY ALBUM INURI A > OR = 300 THE ADA RECOM MENDS THAT 2 OF 2 SPECI MENS COLLE CTED WITHI N A 3- TO 6-MON TH PERIO D BE ABNOR MAL BEFOR E CONSI RAUL G A PATIE NT TO HAVE CROSS ED ONE OF THESE DIAGN OSTIC THRES HOLDS . REFER ENCE: DIABE SHENA CARE, VOL. 26: S94-S 96, 2002 Not Available [facility] (Lab) [address] [place], [address], 01/31/2023 18:38:01 02/01/20 23 01/31/2023 COMPR EHENS LILIA METAB OLIC PANEL sodium 140 mmol/ L 137-14 5 Not Available [facility] (Lab) [address] [place], [address], 01/31/2023 19:13:49 02/01/20 23 01/31/2023 COMPR EHENS LILIA METAB OLIC PANEL potassium 3.9 mmol/ L 3.5-5. 1 Not Available [facility] (Lab) [address] [place], [address], 01/31/2023 19:13:49 02/01/20 23 01/31/2023 COMPR EHENS LILIA METAB OLIC PANEL chloride 102 mmol/ L 98-107 Not Available [facility] (Lab) [address] [place], [address], 01/31/2023 19:13:49 02/01/20 23 01/31/2023 COMPR EHENS LILIA METAB OLIC PANEL carbon dioxide 28 mmol/ L 22-30 Not Available [facility] (Lab) [address] [place], [address], 01/31/2023 19:13:49 02/01/20 23 01/31/2023 COMPR EHENS LILIA METAB OLIC PANEL anion gap 13.9 mmol/ L 14-22 low Not Available [facility] (Lab) [address] [place], [address], 01/31/2023 19:13:49 02/01/20 23 01/31/2023 COMPR EHENS LILIA METAB OLIC PANEL glucose 129 mg/dL 70-99 high Not Available [facility] (Lab) [address] [place], [address], 01/31/2023 19:13:49 02/01/20 23 01/31/2023 COMPR EHENS LILIA METAB OLIC PANEL BUN 13 mg/dL 8-19 Not Available [facility] (Lab) [address] [place], [address], 01/31/2023 19:13:49 07/1001/31/2023 COMPR EHENS LILIA METAB OLIC PANEL creatinine 0.89 mg/dL 0.66-1 .25 Not Available [facility] (Lab) [address] [place], [address], 01/31/2023 19:13:49 02/01/20 23 01/31/2023 COMPR EHENS LILIA METAB OLIC PANEL GFR >60 Refer ence Range : [place] ge GFR Healt hy Adult : >60 mL/mi n/1.7 3 m2 Chron ic Kidne y Disea se: 15-60 mL/mi n/1.7 3 m2 Kidne y Failu re: <15/m L/min /1.73 m2 www.n iddk. nih.g ov The MDRD study equat ion has not been valid ated in child darwin <18 years of age; pregn ant women ; the elder ly >85 years of age; or in some racia l or ethni c subgr oups, such as [facility] nics. Outsi de the valid ated elmo eters , estim ated GFR is less accur ate, requi ring clini lonny judgm ent on a case- by-ca se basis . Clini lonny inter preta tion for other races and ages must be made by the clini maritza. The MDRD study equat ion has not been valid ated for the evalu ation of serum creat inine relat ed to nutri shilpi l statu s or medic ation usage . For perso ns <18 years of age, a pedia tric GFR calcu lator is avail able on the [facility] websi te: https ://autumn w.kid michael.o rg/pr ofess ional s/kdo qi/gf r_cal culat or Not Available [facility] (Lab) [address] [place], [address], 01/31/2023 19:13:49 02/01/2001/31/2023 COMPR EHENS LILIA METAB OLIC PANEL alkaline phosphatase 97 U/L 38-126 Not Available [facility] (Lab) [address] [place], [address], 01/31/2023 19:13:49 02/01/20 23 01/31/2023 COMPR EHENS LILIA METAB OLIC PANEL alanine aminotransfe rase 15 U/L 0-[address] [facility] (Lab) [address] [place], [address], 01/31/2023 19:13:49 02/01/20 23 01/31/2023 COMPR EHENS LILIA METAB OLIC PANEL aspartate aminotransfe rase 25 U/L 15-[address] [facility] (Lab) [address] [place], [address], 01/31/2023 19:13:49 02/01/20 23 01/31/2023 COMPR EHENS LILIA METAB OLIC PANEL bilirubin, total 0.30 mg/dL 0.20-1 .30 Not Available [facility] (Lab) [address] [place], [address], 01/31/2023 19:13:49 02/01/20 23 01/31/2023 COMPR EHENS LILIA METAB OLIC PANEL calcium 8.6 mg/dL 8.4-10 .2 Not Available [facility] (Lab) [address] [place], [address], 01/31/2023 19:13:49 02/01/20 23 01/31/2023 COMPR EHENS LILIA METAB OLIC PANEL total protein 6.2 g/dL 6.3-8. 2 low Not Available [facility] (Lab) [address] [place], [address], 01/31/2023 19:13:49 02/01/20 23 01/31/2023 COMPR EHENS LILIA METAB OLIC PANEL albumin 3.6 g/dL 3.4-5. 0 Not Available [facility] (Lab) [address] [place], [address], 01/31/2023 19:13:49 02/01/20 23 01/31/2023 COMPR EHENS LILIA METAB OLIC PANEL globulin 2.6 g/dL 2.6-4. 2 Not Available [facility] (Lab) [address] [place], [address], 01/31/2023 19:13:49 02/01/20 23 01/31/2023 COMPR EHENS LILIA METAB OLIC PANEL A/G ratio 1.4 ratio 1.0-2. 0 Not Available [facility] (Lab) [address] [place], [address], 01/31/2023 19:13:49 02/01/2001/31/2023 LIPID PANEL cholesterol 119 mg/dL 140-19 9 low [facility]EW[facility] NSUS RECOM MENDA TION FOR LEAH STERO L: ADULT CHILD LOW RISK: <200 <170 BORDE RLINE : <200- 239 ----- HIGH RISK: >240 >200 Not Available [facility] (Lab) [address] [place], [address], 01/31/2023 19:13:53 02/01/20 23 01/31/2023 LIPID PANEL triglyceride s 159 mg/dL 0-150 high [facility]EW[facility] NSUS REPOR T RECOM MENDA TION FOR TRIGL YCERI ANALI: ADULT CHILD LOW RISK: <150 ----- BODER LINE: 150-1 99 ----- HIGH RISK: >200 ----- Not Available [facility] (Lab) [address] [place], [address], 01/31/2023 19:13:53 02/01/20 23 01/31/2023 LIPID PANEL HDL cholesterol 40 mg/dL 40- Not Available [facility] (Lab) [address] [place], [address], 01/31/2023 19:13:53 02/01/20 23 01/31/2023 LIPID PANEL LDL cholesterol, calculated 47 mg/dL 0-130 [facility] NSUS REPOR T RECOM MENDA TIONS FOR LDL: ADULT CHILD LOW RISK <130 <110 (OPTI MAL LDL) <100 ----- BORDE RLINE : 130-1 59 ----- HIGH RISK: >160 >130 A TRIGL YCERI DE RESUL T >400 INVAL IDATE S THE CALCU LATIO N FOR LDL FRACT IONAT ION - THE LDL RESUL T WILL NOT BE REPOR KANU. Not Available [facility] (Lab) [address] [place], [address], 01/31/2023 19:13:53 02/01/20 23 01/31/2023 T3 FREE free T3 3.3 pg/mL 2.77-5 .27 Not Available [facility] (Lab) [address] [place], [address], 01/31/2023 19:27:45 02/01/20 23 01/31/2023 T4 FREE free T4 1.28 NG/dL 0.78-2 .19 Not Available [facility] (Lab) [address] [place], [address], 01/31/2023 19:27:50 02/01/20 23 01/31/2023 TSH thyroid-stim ulating hormone 0.049 uIU/m L 0.465- 4.680 low Not Available [facility] (Lab) [address] [place], [address], 01/31/2023 19:40:17 02/01/20 23 01/31/2023 HEMOG LOBIN A1C HA1C 6.4 % 4.0-6. 0 high Diabe shena Scree raeann Crite umm: <5.7% Consi stent with absen ce of diabe shena 5.7-6 .4% Consi stent with incre ased risk for diabe shena (pred iabet es) >OR=6 .5% Consi stent with diabe shena REFER ENCE: Diabe shena Care 2016, 39(Villalpando ppl.1 ):s13 -s22 Not Available [facility] (Lab) [address] [place], [address], 01/31/2023 22:58:54 02/01/20 23 02/01/2023 C-PEP TIDE, SERUM C-peptide <0.1 NG/mL 1.1-4. 4 low C-Pep tide refer ence inter molina is for fasti ng patie nts. Perfo rmed at: - [facility] [address] [facility], [place] [address] Lab Direc tor: Jorge giordano PhD, Phone : [phone] Not Available [facility] (Lab) [address] [place], [address], 02/01/2023 12:12:24 12/01/19 24 xr wrist bilat 3V+ [facility] [address] [place] [address] Patien t Name: ASHELY CARRENO Access ion #: [id number] Sex: F : 1959 1 Dictat ed By: Catherine Escobar Attend ing Physic krystal: [facility] Physic krystal: JIAN PATRICK Exam Date: 2023 09:24 AM Exam Name: XR WRIST BILAT 3V+ Admitt ing Diagno sis(es ): CLINIC AL INDICA TION: Bilate ral wrist pain TECHNI QUE: 3 radiog raphic views of the bilate ral wrists were obtain ed. Compar adal: none FINDIN GS/ IMPRES LIAT: There is no eviden ce of acute fractu re or disloc ation. The visual ized joint space is well mainta ined. The alignm ent is anatom ical. There is no radiop aque foreig n body. Electr onical ly Signed by: Catherine Escobar at 2023 11:10: 38 AM Page 1 [email or web address] [facility] (Imaging) [address] [place], [address], 03/17/2024 16:58:34 12/29/19 XR, shoul brock No observ ation record ed. [email or web address] [facility] [place] [address], [place], [address], 12/29/2023 14:27:22 01/17/20 24 01/17/2024 XR, lumba r spine [facility] [address] [place] [address] [phone] Patien t Name: ASHELY CARRENO Access ion #: [id number] Sex: F : 1959 3 Dictat ed By: Catherine Escobar Attend ing Physic krystal: JOVITA DONNELLY Orderi ng Physic krystal: JOVITA DONNELLY Exam Date: 2023 11:40 AM Exam Name: XR L SPINE 4V+ Admitt ing Diagno sis(es ): INDICA TION: chroni c low back pain COMPAR ADAL: None TECHNI QUE: 5 views of the lumbar spine were obtain ed. FINDIN GS: The lumbar verteb ral alignm ent is normal . Modera te multil evel degene rative disc diseas e of the lumbos acral spine. No acute fractu re, verteb ral compre ssion deform ity or aggres sive osseou s lesion s. The parave rtebra l soft tissue s are grossl y unrema rkable . IMPRES LIAT: No acute fractu re. Modera te multil evel degene rative disc diseas e of the lumbos acral spine. Electr onical ly Signed by: Catherine Escobar at 2023 12:45: 47 PM Page 1 [email or web address] [facility] (Imaging) [address] [place], [address], 01/17/2024 13:55:16 03/12/20 24 03/12/2024 MRI, shoul brock, w/o contr ast [facility] [address] [place] [address] [phone] Patien t Name: ASHELY CARRENO Access ion #: [id number] Sex: F : 1959 8 Dictat ed By: Surya davies Physic krystal: JIAN PATRICK Physic krystal: JIAN PATRICK Exam Date: 2023 11:08 AM Exam Name: MRI SHOULD ER LT WO Admitt ing Diagno sis(es ): CLINIC AL INFORM ATION: 64 years old, Female ; pain left should er joint. TECHNI QUE: Multis equenc e multip lanar MRI images of the left should er were obtain ed withou t contra st. COMPAR ADAL: Radiog raphs dated 2023. FINDIN GS: Acromi oclavi cular joint: There is modera te acromi oclavi cular hypert rophy and modera te edema. There is type 1 acromi on. Modera te fluid in the subacr omial / subdel toid bursa with modera te synovi tis. Rotato r cuff tendon s: Focal full-t hickne ss tear involv ing the multimedia artist ior fibers of the supras pinatu s tendon and most of the anteri or to multimedia artist ior extent of the infras pinatu s tendon just proxim al to their insert ions, measur ing up to 2.8 cm in AP dimens ion and 1.2 cm in proxim al to distal dimens ion. There is adjace nt synovi tis at the level of the tear. Subsca pulari s and teres minor tendon s appear intact . Biceps tendon : Mild-t o-mode rate tendin osis of the proxim al long head biceps tendon along its intra- articu lar course . Labrum : Tear of the multimedia artist ior superi or labrum , with paucit y of labral tissue at the level of the tear, of uncert the [facility]. Bones: No fractu re or focal marrow contus ion. Muscle s: Mild grade 1 fatty change s are seen in the supras pinatu s, infras pinatu s, and subsca pulari s tendon s. Other: Small to modera te glenoh umeral joint effusi on with modera te synovi tis. Page 1 [facility] [address] [place] [address] Patien t Name: ASHELY CARRENO Access ion #: [id number] Sex: F : 1959 8 Dictat ed By: Surya valdez Attend ing Physic krystal: SUSAN VILLAR Orderi ng Physic krystal: JIAN PATRICK Exam Date: 2023 11:08 AM Exam Name: MRI SHOULD ER LT WO Admitt ing Diagno sis(es ): IMPRES LIAT: 1. Full-t hickne ss rotato r cuff tear involv ing the supras pinatu s and infras pinatu s tendon s just proxim al to their insert ions. 2. Tear of the multimedia artist ior superi or labrum . 3. Modera te acromi oclavi cular hypert rophy with modera te fluid in the subacr omial / subdel toid bursa. 4. Small to modera te glenoh umeral joint effusi on with modera te synovi tis. 5. Additi onal findin gs as descri bed above Electr onical ly Signed by: Surya valdez at 2023 10:25: 42 AM Page 2 [email or web address] [facility] (Imaging) [address] [place], [address], 03/17/2024 16:58:34 Result Notes None recorded. Problems Name Problem SNOMED Code Status Onset Date Resolution Date Notes Provider Name and Address Organization Details Recorded Time Postoperat lilia hypothyroi dism 61044838 Active 2021 Not Available [facility] 3 12:45:36 Latent autoimmune diabetes mellitus in adult 349322889 Active 2021 Not Available [facility] 3 12:45:36 Exocrine pancreatic insufficie ncy 39683173 Active 2021 Not Available [facility] 3 12:45:37 Hypothyroi dism 99186054 Active 2022 Dorothy Fiore MD [address] [facility], [facility] [address], [place], [address] , [facility] 3 10:02:40 Dyslipidem ia 421439254 Active 2022 Dorothy Fiore MD [address] [facility], [place], [address] , [facility] 3 10:03:22 Pain of left shoulder joint 3310764232893 9109 Active 2023 Reena Callahan CNA [facility] [place] [facility] 4 13:52:51 Tendinitis of left rotator cuff 0554588667697 9101 Active 2023 RAJ Agrawal [address], [address], [place], [address] , [facility] 4 14:27:35 Nontraumat ic complete rupture of rotator cuff of left shoulder 4796645860516 102 Active 2024 RAJ Agrawal [address], [facility] [address], [place], [address] , [facility] 5 11:41:50 Problem Notes None recorded. Procedures Surgical History Date Name Laterality Status Provider Name and Address Organization Details Recorded Time 07/27/19 22 Kidney Stones completed Not Available [facility] 2022 12:45:05 05/24/19 85 delivery completed Not Available [facility] 12:45:05 09/18/18 82 delivery completed Not Available [facility] 12:45:05 Foot Surgery completed Reena Callahan CNA [place] [facility] 12/29/2023 13:50:15 Hand completed Not Available [facility] 07/2022 12:45:05 Cardiac Stent Placement completed Not Available [facility] 09/22/2022 12:45:05 Knee Surgery completed Not Available [facility] 09/22/2022 12:45:05 thyroidectomy completed Not Available [facility] 09/22/2022 12:45:05 Carpal tunnel completed Reena Callahan CNA [place] [facility] 12/29/2023 13:50:24 Imaging Results Imaging Date Name Status LastModified by Organiz ation Details LastModified Time 12/01/2023 xr wrist bilat 3V+ completed [email or web address] [facility] (Imaging) [address] [place], [address], 03/17/2024 16:58:34 12/29/2023 XR, shoulder completed [email or web address] [facility] [place] [address], [place], [address], 12/29/2023 14:27:22 01/17/2024 XR, lumbar spine completed [email or web address] [facility] ([facility]) [address] [place], [address], 01/17/2024 13:55:16 03/12/2024 MRI, shoulder, w/o contrast completed [email or web address] [facility] (Imaging) [address] [place], [address], 03/17/2024 16:58:34 Procedure Notes None recorded. Medical Equipment None Reported. Allergies Allergen ID Allergen Name Allergen Category Reaction Reaction Severity Criticality Documentation Date Start Date Code Code System Note Provider Name and Address Organization Details Recorded Time 88107 Tylenol with Codeine medicatio n dizziness hives nausea Not available Not available Not available Not available 09/22/2022 41483 6 RxNorm Not Available [facility] 3 12:47:58 88934 codeine medicatio n Not available Not available Not available 09/22/2022 2670 RxNorm Not Available [facility] 3 12:47:58 Medications Name Sig Start Date Stop Date Status Note LastModified by Organization Details LastModified Time omnipod op5 controller USE FOR INSULIN ADMINISTR ATION active Not Available Not Available No t Available cyclobenzap rine 10 mg tablet 05/10 completed Not Available Not Available Not Available atorvastati n 40 mg tablet 05/10 completed Not Available Not Available Not Available methocarbam ol 500 mg tablet 05/10 completed Not Available Not Available Not Available levothyroxi ne 175 mcg tablet TAKE ONE TABLET BY MOUTH EVERY MORNING FOR THYROID 12/28 completed Not Available Not Available Not Available bupropion HCl SR 150 mg tablet,12 hr sustained-r elease TAKE ONE TABLET BY MOUTH TWICE DAILY EVERY MORNING AND EVERY EVENING FOR mood active Not Available Not Available No t Available levothyroxi ne 137 mcg tablet TAKE 1 TABLET BY MOUTH EVERY DAY IN THE MORNING BEFORE BREAKFAST FOR THYROID active Not Available Not Available No t Available atorvastati n 80 mg tablet TAKE ONE TABLET BY MOUTH DAILY AT BEDTIME FOR CHOLESTER OL active Not Available Not Available No t Available prednisone 10 mg tablet TAKE ONE TABLET BY MOUTH THREE TIMES DAILY FOR 3 DAYS, THEN TAKE ONE TABLET TWICE DAILY FOR 2 DAYS, THEN TAKE ONE TABLET ONCE FOR ONE DAY active Not Available Not Available No t Available doxycycline hyclate 100 mg capsule 06/30 completed Not Available Not Available Not Available Glucagon Emergency Kit 1 mg solution for injection active Not Available Not Available No t Available doxepin 25 mg capsule TAKE ONE CAPSULE BY MOUTH AT BEDTIME NEEDED active Not Available Not Available No t Available hydrocodone 5 mg-acetamin ophen 325 mg tablet 06/30 completed Not Available Not Available Not Available Nystop 100,000 unit/gram topical powder APPLY TO THE AFFECTED AREA(S) THREE TIMES DAILY, IN THE MORNING, AT MID-DAY & AT BEDTIME active Not Available Not Available No t Available sucralfate 1 gram tablet 06/30 completed Not Available Not Available Not Available lisinopril 20 mg tablet TAKE ONE TABLET BY MOUTH EVERY DAY FOR BLOOD PRESSURE 12/07 completed Not Available Not Available Not Available bupivacaine HCl 0.5 % (5 mg/mL) injection solution Take 20 mg by injection route. 2023 active Not Available Not Available Not Avai lable clopidogrel 75 mg tablet TAKE ONE TABLET BY MOUTH EVERY MORNING TO PREVENT STROKE active Not Available Not Available No t Available sulfamethox azole 800 mg-trimetho prim 160 mg tablet TAKE ONE TABLET EVERY TWELVE HOURS BY MOUTH FOR FIVE DAYS 06/10 completed Not Available Not Available Not Available tramadol 50 mg tablet TAKE ONE TABLET BY MOUTH FOUR TIMES DAILY NEEDED FOR PAIN active Not Available Not Available No t Available prednisone 10 mg tablets in a dose pack Take 1 tab by mouth, 3 times a day for 3 daysTake 1 tab by mouth 2 times a day for 2 daysTake 1 tab by mouth once a day for 1 day 2023 active Not Available Not Available Not Avai lable potassium chloride ER 20 mEq tablet,exte nded release(par t/cryst) TAKE ONE TABLET BY MOUTH THREE TIMES A WEEK FOR POTASSIUM REPLACEME NT active Not Available Not Available No t Available Humalog U-100 Insulin 100 unit/mL subcutaneou s solution INJECT VIA OMNIPOD. MAX DAILY DOSE OF 100 UNITS active Not Available Not Available No t Available OneTouch Ultra Test strips USE TO TEST BLOOD SUGAR 4-6 TIMES DAILY active Not Available Not Available No t Available Kenalog 10 mg/mL suspension for injection Take 20 mg by injection route. 2023 active [facility]: [phone]- [phone] Not Available Not Available Not Available hydrocodone 7.5 mg-acetamin ophen 325 mg tablet TAKE ONE TABLET BY MOUTH EVERY 6 HOURS NEEDED FOR MODERATE (4-6) PAIN active Not Available Not Available No t Available cephalexin 500 mg capsule TAKE ONE CAPSULE BY MOUTH TWICE DAILY EVERY MORNING AND EVERY EVENING UNTIL ALL TAKEN FOR INFECTION active Not Available Not Available No t Available metformin 1,000 mg tablet 06/30 completed Not Available Not Available Not Available lisinopril 10 mg tablet TAKE ONE TABLET BY MOUTH EVERY MORNING FOR BLOOD PRESSURE active Not Available Not Available No t Available glucose 4 gram chewable tablet active Not Available Not Available Not Available gabapentin 300 mg capsule TAKE THREE CAPSULES BY MOUTH THREE TIMES DAILY EVERY MORNING, & AT 3PM & AT BEDTIME FOR PAIN MANAGEMEN T active Not Available Not Available No t Available diclofenac sodium 75 mg tablet,nathalie yed release 05/10 completed Not Available Not Available Not Available levothyroxi ne 200 mcg tablet TAKE 1 TABLET BY MOUTH EVERY MORNING FOR THYROID 01/22 completed Not Available Not Available Not Available lisinopril 5 mg tablet 06/30 completed Not Available Not Available Not Available furosemide 20 mg tablet TAKE ONE TABLET BY MOUTH ONCE WEEKLY IN THE MORNING FOR FLUID RETENTION active Not Available Not Available No t Available estradiol 0.01% (0.1 mg/gram) vaginal cream INSERT 1 APPLICATO RFUL VAGINALLY 3 TIMES A WEEK 12/07 completed Not Available Not Available Not Available levofloxaci n 750 mg tablet TAKE 1 TABLET BY MOUTH EVERY DAY 06/10 completed Not Available Not Available Not Available zolpidem 10 mg tablet TAKE ONE TABLET BY MOUTH AT BEDTIME NEEDED 12/07 completed Not Available Not Available Not Available methylpredn isolone 4 mg tablets in a dose pack Take 1 dose pk by oral route as directed. 06/30 completed Not Available Not Available Not Available lisinopril 40 mg tablet TAKE 1 TABLET BY MOUTH DAILY TO LOWER BLOOD PRESSURE 06/10 completed Not Available Not Available Not Available gentamicin 0.1 % topical ointment APPLY TO THE AFFECTED AREA(S) of TO WOUND DAILY. cover with gauze active Not Available Not Available No t Available levothyroxi ne 112 mcg tablet 06/30 completed Not Available Not Available Not Available Pneumovax-2 3 25 mcg/0.5 mL injection syringe 05/10 completed Not Available Not Available Not Available ciclopirox 0.77 % topical cream APPLY TO THE AFFECTED AREA(S) ON FEET ONCE OR TWICE DAILY 12/28 completed Not Available Not Available Not Available ezetimibe 10 mg tablet TAKE ONE TABLET BY MOUTH ONCE DAILY AT BEDTIME FOR CHOLESTER OL active Not Available Not Available No t Available metoprolol tartrate 25 mg tablet 05/10 completed Not Available Not Available Not Available nitrofurant oin monohydrate /macrocryst als 100 mg capsule TAKE ONE CAPSULE BY MOUTH EVERY 12 HOURS 12/07 completed Not Available Not Available Not Available metformin 06/30 completed Not Available Not Available Not Available Creon 36,000 unit-114,00 0 unit-180,00 0 unit capsule,del ayed release TAKE ONE CAPSULE BY MOUTH THREE TIMES DAILY IN THE MORNING & AT3PM & AT BEDTIME active Not Available Not Available No t Available Ozempic 0.25 mg or 0.5 mg (2 mg/1.5 mL) subcutaneou s pen injector INJECT 0.5MG ONCE WEEKLY WITH LARGE MEAL x 90 DAYS 12/07 completed Not Available Not Available Not Available Dexcom G6 Sensor device USE DIRECTED, CHANGE EVERY 10 DAYS active Not Available Not Available No t Available Dexcom G6 Transmitter device USE DIRECTED, CHANGE EVERY THREE MONTHS active Not Available Not Available No t Available Omnipod Dash Pods (Gen 4) subcutaneou s cartridge CHANGE pod EVERY 3 DAYS 12/28 completed Not Available Not Available Not Available OneTouch Ultra2 Meter USE TO CHECK BLOOD SUGAR active Not Available Not Available No t Available OneTouch Delica Plus Lancet 33 gauge USE TO TEST BLOOD SUGAR 4-6 times daily active Not Available Not Available No t Available Flublok Quad 3595-1143 (PF) 180 mcg (45 mcg x 4)/0.5 mL IM syringe 05/10 completed Not Available Not Available Not Available Baqsimi 3 mg/actuatio n nasal spray active Not Available Not Available Not Available FreeStyle Kaylee 2 Sensor kit CHANGE EVERY 14 DAYS active Not Available Not Available No t Available FreeStyle Kaylee 2 [place] USE DIRECTED active Not Available Not Available No t Available Ozempic 1 mg/dose (4 mg/3 mL) subcutaneou s pen injector Inject 1 mg every week by subcutane ous route at dinner for 90 days. 04/29 completed Not Available Not Available Not Available Wegovy 0.25 mg/0.5 mL subcutaneou s pen injector 01/22 completed Not Available Not Available Not Available Ozempic 2 mg/dose (8 mg/3 mL) subcutaneou s pen injector INJECT 2MG UNDER THE SKIN EVERY WEEK active Not Available Not Available No t Available Omnipod 5 G6 Pods (Gen 5) subcutaneou s cartridge USE DIRECTED active Not Available Not Available No t Available Mounjaro 2.5 mg/0.5 mL subcutaneou s pen injector Inject 2.5 mg every week by subcutane ous route for 28 days. 11/22 completed Not Available Not Available Not Available Omnipod 5 G6-G7 Pods (Gen 5) subcutaneou s cartridge USE DIRECTED. CHANGE EVERY 48 HOURS active Not Available Not Available No t Available Vitals Date Recorded Body mass index (BMI) Body height Oxygen saturation Oxygen saturation in Arterial blood by Pulse oximetry Heart rate Body temperature Body weight Systolic blood pressure Diastolic blood pressure Provider Name and Address Organization Details Last Updated DateTime 2 41.4 kg/m2 170.18 cm 98 % 98 % 91 /min 97.6 [degF] 764607. 82 g 105 mm[Hg] 70 mm[Hg] Not Available [facility] 3 12:45:09 Date Recorded Body height Body mass index (BMI) Body weight Body temperature Respiratory rate Heart rate Systolic blood pressure Diastolic blood pressure Provider Name and Address Organization Details Last Updated DateTime 170.18 cm 39.9 kg/m2 744040. 34 g 97.4 [degF] 18 /min 87 /min 136 mm[Hg] 78 mm[Hg] KEDAR Yun [facility] [employer] [facility] 09:53:36 Date Recorded Body height Body mass index (BMI) Body weight Provider Name and Address Organization Details Last Updated DateTime 12/29/2023 170.18 cm 43.9 kg/m2 632175.86 g Reena Callahan CNA [facility] 12/29/2023 13:46:16 Date Recorded Body height Body mass index (BMI) Body weight Provider Name and Address Organization Details Last Updated DateTime 02/06/2024 170.18 cm 43.9 kg/m2 782568.86 g [facility] 02/06/2024 10:23:40 Date Recorded Body height Provider Name an d Address Organization Details Last Updated DateTime 11/26/2024 170.18 cm [facility] 11/26/2024 11:08:21 Social History Question Answer Notes LastModified by Organizat ion Details LastModified Time Tobacco Smoking Status Never Smoker Not Available [facility] 09/22/2022 12:45:01 What Is Your Level Of Caffeine Consumption? Heavy [id number] Information not available 09/22/2022 In The 14 Days Before Symptom Onset, Have You Had Close Contact With A Laboratory-confirm ed COVID-19 While That Case Was Ill? No [id number] Information not available 09/22/2022 In The 14 Days Before Symptom Onset, Have You Had Close Contact With A Person Who Is Under Investigation For COVID-19 While That Person Was Ill? No [id number] Information not available 09/22/2022 What Is Your Relationship Status? [id number] Information not available 09/22/2022 Has Tobacco Cessation Counseling Been Provided? No [id number] Information not available 09/22/2022 Have You Recently Traveled Abroad? No [id number] Information not available 09/22/2022 Sex: Female Functional Status Question Answer Note LastModified by Organizat ion Details LastModified Time Do you use any illicit or recreational drugs? No [id number] Information not available 09/22/2022 Do you or have you ever used any other forms of tobacco or nicotine? No [id number] Information not available 09/22/2022 What is your level of alcohol consumption? 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 Family History Relationship Description Onset Age of this Age Resolved Age Notes LastModified by Organization Details LastModified Time Father Diabetes mellitus [id number] Not available 09/22/2022 12:45:05 Father Heart disease [id number] Not available 09/22/2022 12:45:05 Mother Diabetes mellitus [id number] Not available 09/22/2022 12:45:05 Mother Heart disease [id number] [id number] Not available 09/22/2022 12:45:06 Mother Congestive heart failure [id number] [id number] Not available 09/22/2022 12:45:06 Maternal Grandfather Diabetes mellitus [id number] [id number] Not available 09/22/2022 12:45:06 Maternal Grandmother Diabetes mellitus [id number] [id number] Not available 09/22/2022 12:45:06 Paternal Grandfather Diabetes mellitus [id number].001 [id number] Not available 09/22/2022 12:45:06 Paternal Grandmother Diabetes mellitus [id number] Not available 09/22/2022 12:45:06 Brother Malignant neoplasm of prostate [id number] Not available 09/22/2022 12:45:06 Maternal Aunt Malignant neoplasm of urinary bladder [id number].137 [id number] Not available 09/22/2022 12:45:06 Maternal Uncle Family history of malignant neoplasm [email or web address] Not available 2023 13:48:51 Mother Hypertensive disorder [email or web address] Not available 2023 13:49:07 Mother Blood coagulation disorder [email or web address] Not available 2023 13:49:21 Medical History Condition Response ARTHRITIS Y USE OF BLOOD THINNERS Y DIABETES, TYPE Y RADIATION / CHEMOTHERAPY Y HIGH CHOLESTEROL / HYPERLIPIDEMIA Y EYE PROBLEMS Y HYPOTHYROIDISM Y HAVE YOU BEEN HOSPITALIZED OR SEEN IN [facility] IN THE PAST YEAR ? Y GI PROBLEMS Y HEART DISEASE/HEART PROBLEMS Y HYPERTENSION Y CANCER: SPECIFY Y ANEMIA/BLOOD DISORDER Y Gynecological HistoryNo gynecological history recorded. Obstetrics History GPAL:G 0 P 0 0 0 0 Past Encounters Encounter ID Performer Location Encounter Start Date Encounter Closed Date Diagnosis/Indication Diagnosis SNOMED-CT Code Diagnosis ICD10 Code Diagnosis Note [id number] Dorothy Fiore MD [facility] [place] [address] [place] [address] 06/30/2021 00:00:00 06/30/2021 16:22:17 [id number] Kristopher Means NP [facility] [place] [address] [address] 08/10/2021 00:00:00 08/17/2021 10:38:39 [id number] Dorothy Fiore MD [facility] [place] [address] [place] [address] 09/08/2021 00:00:00 09/08/2021 18:34:07 [id number] Dorothy Fiore MD [facility] [place] [address] [place] [address] 01/22/2022 00:00:00 01/22/2022 16:05:54 [id number] [facility] [place] [address] [place] [address] 1 06/10/2022 00:00:00 06/10/2022 10:41:17 [id number] Dorothy Fiore MD [facility] [address] [place] [address] 12/07/2022 09:40:43 12/07/2022 10:19:12 Latent autoimmune diabetes mellitus in adult [id number] E13.9 a1c of 7.2% up from 6.6% continue settings as follows:12 am to 930 am at 1.35 u/hr930 am to 1 pm 1.65 u/hr1 pm to 5 pm 1.7 u/hr5 pm to 12 am 1.5 u/hrcarb ratio 1:8 and sensitivit y 40 mg/dL continue ozempic 2 mg once weekly- she has lost over 50 pounds over the past 2 years and has no evidence of hypoglycem ia and averages in range. Hypothyroidism [id number] E03.9 FT4 in range continue ltr 137 mcg daily. Dyslipidemia [id number] E 78.5 continue zetia as patient tolerating well. Spent up to 28 minutes preparing to see the patient (eg, review of tests), obtaining and/or reviewing separately obtained history, performing a medically appropriat e examinatio n and evaluation , counseling and educating the patient, ordering medication s, tests, along with documentin g clinical informatio n in the electronic health record, independen tly interpreti ng results and communicat ing results to the patient. RTC in 6 months. Patient was provided a handwritte n lab order which contains our fax number. If she chooses to go outside of the [facility] system to obtain labwork she was advised to provide our fax number and my informatio n to the lab she will be obtaining labwork from in order to have her labs properly forwarded over for me to review so there is no loss of follow up due to use of outside network. She was also advised to contact our clinic informing us that she has completed her labwork so we are aware we will need to reach out to the appropriat e laboratory to request her results be forwarded to us so I might have the ability to review and make further medical decision making in her case. She voiced understand ing. [id number] David Gabriel MD [facility] [address] [place] [address] 12/29/2023 13:25:05 12/29/2023 14:26:16 Pain of left shoulder joint [id number] M25.512 Tendinitis of left rotator cuff [id number] M67.035 [id number] MD DAMION [facility] [address] [place] [address] 02/06/2024 10:19:52 02/06/2024 10:44:01 Pain of left shoulder joint [id number] M25.512 Tendinitis of left rotator cuff [id number] M67.850 [id number] David Gabriel MD [facility] [address] [place] [address] 11/26/2024 11:03:29 11/26/2024 11:36:16 Pain of left shoulder joint [id number] [id number] M25.512 Nontraumat ic complete rupture of rotator cuff of left shoulder [id number] M75.122 Health Concerns Section Related Observation LastModified by Organization Detai ls LastModified Time None Recorded Concern Status LastModified by Organization Details LastModified Time None Recorded Advance Directives Directive None Recorded Payers Encounter Date Sequence Insurance Name Policy Number Policy Rico Covered Member ID Rico Member ID Guarantor Name 12/07/2022 1 [facility] ([facility]) 000 Ashely Rice Ev [id number] Ashely Carreno 12/07/2022 2 [facility] (MEDICAID HMO) [id number] 0003 Ashely Carreno [id number] Ashely Carreno 12/29/2023 1 [facility] (PPO) 000 Ashely Rice Ev [id number] Ashely Carreno 12/29/2023 2 [facility] (MEDICAID HMO) [id number] 0003 Ashely Carreno [id number] Ashely Carreno 02/06/2024 1 [facility] (PPO) 000 Ashely Rice Ev [id number] Ashely Carreno 11/26/2024 1 [facility] (MEDICAID HMO) [id number] 0003 Ashely Carreno [id number] Ashely Carreno Notes Date Note Type Note Provider Name and Address Organization Details Recorded Time 12/07/2022 text/html 62 yo female com es in for follow up in management of overall controlled type 2 DM (a1c of 7.2% up from 6.6%), dyslipidemia and hypothyroidism. last seen in May at that time weadjusted pump as follows:12 am to 930 am decrease to 1.35 u/hr930 am to 1 pm 1.65 u/hr1 pm to 5 pm 1.7 u/hr5 pm to 12 am 1.5 u/hrcarb ratio 1:8 and sensitivity 40 mg/dL we transitioned off ozempic to mounjaro d/t supply shortage. she is now back on ozempic 2 mg once weekly. we reduced synthroid to 137 mcg daily due to overreplacement. recently her sugars have been [id number] day average at 135 mg/dL30 day average 131 mg/dL90 day average 136 mg/dL her lowest sugar is 69 mg/dL labs from 09/16:glucose 184 mg/dLmicroalbumin dnra1c 7.2%tsh of 0.061 uIU/mlFT4 of 1.10 ng/dL Dorothy Fiore MD [address] [facility] [address], [facility] [address], [place], [address], [employer] 12/07/2022 11:03:28 12/29/2023 text/html patient is a 63-year-old female who presents with an 8 month history of left shoulder pain not due to any known trauma or injury. She states she does lots of heavy repetitive things at work this has been aggravating her shoulder lately. She has trouble raising her arm up overhead can not do anything heavy in terms of lifting she has aching pain in the shoulder radiates into the upper arm worse with activity somewhat relieved by rest states the pain is about a 6 on a scale of 1-10. She denies weakness but certainly has painful giving way she can not take oral anti-inflammatory medication due to the fact that she is on chronic blood thinners she states about 15 years ago she had some issues with her shoulder she had a shot of cortisone then has not had any issues until recently. Despite trying to rest it work on range of motion and take Tylenol or symptoms continue. The patient comes in today for initial evaluation treatment she has aching pain that radiates into the upper arm but not below the elbow. New past medical history sheet was reviewed and signed on the intake sheet of today's date drug allergies current medications family social history previous surgical history 10 point review of systems was reviewed and discussed in detail today with the patient. RAJ Agrawal [address], [place], [address], [employer] 12/29/2023 14:28:06 02/06/2024 text/html The patient has come back for recheck of her left shoulder. We tried a course of oral prednisone I have ordered physical therapy and she had a shot of cortisone in the subacromial space. She has rotator cuff tendinitis and impingement with AC joint arthrosis. She does lots of heavy repetitive things at work this has aggravated her shoulder recently. She states she is aching pain as a hard time lifting her arm overhead because of the pain. Unfortunately she is on chronic blood thinners really can not use oral anti-inflammatory medication although occasionally she does take some ibuprofen. She states the shot did help somewhat she has only had 2 sessions of therapy due to scheduling issues she states the pain is about a 5 on a scale 1-10 has improved a bit still has aching pain that limits her daily activities she comes in today for recheck. RAJ Agrawal [address] [facility], [facility] [address], [place], [address], [place] [facility] 02/06/2024 10:54:32 11/26/2024 text/html Patient returns for recheck of her left shoulder. I saw her last January 2024. She was having aching pain she had had a previous cortisone injection and tried a course of oral prednisone. She also did a course of physical therapy. She states the treatment works pretty well for her she was doing better but still having some persistent pain. She reports continued pain now. She never followed up due to some other scheduling and family issues. She did however see Dr. Jian Patrick last February instead of following up here. He had ordered an MRI scan for her when her pain continued along with significant aggravation of symptoms with certain daily activities and some weakness also. She did not follow up with him because her insurance changed and she was unable to see him because he is not part of her insurance plan. We were able to obtain the MRI scan results and films as she had these done at [facility]. the MRI scan shows a focal full-thickness tear involving the posterior fibers of the supraspinatus tendon and most anterior to posterior extent of the infraspinatus tendon just proximal to their insertions. This measures 2.8 cm in AP dimension and 1.2 cm in proximal to distal dimension. Subscapularis and teres minor tendon appears to be intact. She has moderate tendinosis of the long head of the biceps and what appears to be a tear of the posterior superior labrum which appears to be chronic in nature. She does have some fatty changes in the supraspinatus infraspinatus and subscapularis tendons small to moderate glenohumeral joint effusion is noted there is moderate AC joint hypertrophy and moderate fluid in the subacromial subdeltoid region due to synovitis. I have reviewed the MRI scan in detail today with the patient I agree with the above findings she does have a significant tear. Unfortunately she has waited 9 months to follow up for the results. I have advised her that due to the fact that she has chronic insulin-dependent diabetes, she is on blood thinners with other multiple medical problems including hypertension and obesity surgery for her maybe a bit more risky and also the tendon at this point could be scarred degenerative and irrepairable. She is coming in today to talk about further options. She states she is tired of living with it and has significant pain and dysfunction can not lift a jug of milk into the refrigerator and has pain even at rest it keeps her awake at night at times. RAJ Agrawal [address] [facility] [address], [facility] [address], [place], [address], [place] [facility] [facility] 11/26/2024 11:42:22 OBGyn Episode No OBEpisode recorded.
--- OUTSIDE RECORDS SUMMARY | 2024-12-16 10:01 | XMS_ITS | Clinical Summary ---
Author Organization [facility] Building [address] [place] [id number] Care Team Providers Care Cistern Room Working Supervisor Name Role Phone David Yuen MD Primary Care Provider [phone] Allergies Active Allergy Reactions Criticality Noted Date Comments Atorvastatin Calcium Muscle pain Medium 07/13/2023 myalgias Codeine Anaphylaxis,Edema High 12/31/2015 Hives/rash/cant breathe (can take vicodin/tramadol) Metoprolol Dizziness Low 07/13/2023 dizziness Medications aspirin 81 mg chewable tablet Take 1 tablet (81 mg total) by mouth daily Active atorvastatin (LIPITOR) 80 mg tablet TAKE 1 TABLET BY MOUTH DAILY TO LOWER CHOLESTEROL Active clopidogreL (PLAVIX) 75 mg tablet TAKE ONE TABLET BY MOUTH DAILY TO PREVENT STROKE Active doxepin (SINEquan) 25 mg capsule Take by mouth nightly as needed 06/20/20 Active ezetimibe (ZETIA) 10 mg tablet TAKE 1 TABLET BY MOUTH DAILY TO LOWER CHOLESTEROL Active furosemide (LASIX) 20 mg tablet TAKE ONE TABLET BY MOUTH THREE TIMES PER WEEK DIRECTED FOR FLUID RETENTION Active gabapentin (NEURONTIN) 100 mg capsule Take 9 capsules (900 mg total) by mouth nightly Active gabapentin (NEURONTIN) 600 mg tablet Take 1 tablet (600 mg total) by mouth 2 (two) times a day Active gabapentin (NEURONTIN) 300 mg capsule TAKE TWO CAPSULES BY MOUTH EVERY MORNING AND IN THE AFTERNOON AND TAKE THREE CAPSULES AT BEDTIME FOR PAIN MANAGEMENT 06/20/20 23 Active HumaLOG 100 unit/mL vial for injection inject 200 units every THREE DAYS via insulin pump 06/20/20 23 Active metoprolol XL (TOPROL-XL) 25 mg extended release tablet 1 tablet (25 mg total) daily Active potassium chloride ER 20 mEq CR tablet TAKE 1 TABLET BY MOUTH 3 TIMES A WEEK 06/20/20 Active traMADoL (ULTRAM) 50 mg tablet TAKE ONE TABLET BY MOUTH FOUR TIMES DAILY NEEDED FOR PAIN Active pancrelipase (CREON) 36,000 units of lipase capsuleIndication s:exocrine pancreatic insufficiency 1 capsule 3 (three) times a day Active pregabalin (LYRICA) 100 mg capsule Take 1 capsule (100 mg total) by mouth every 8 (eight) hours 90 capsule 6 07/13/20 Active levothyroxine (SYNTHROID) 137 mcg tablet Take 1 tablet (137 mcg total) by mouth daily 90 tablet 3 07/13/20 Active Ozempic 2 mg/dose (8 mg/3 mL) pen injector injection Inject 2 mg under the skin once a week 3 mL 11 07/13/20 Active FreeStyle Kaylee 2 Sensor kit Use as directed 1 kit 3 08/19/19 24 Active insulin pump cart,auto,BT-cntr (Omnipod 5 G6 Intro Kit, Gen 5,) cartridgeIndicati ons:Type 1 diabetes mellitus with hyperglycemia (HCC) Use for insulin administration 1 each 10/25/19 24 Active insulin pump cart,automated,BT (Omnipod 5 G6 Pods, Gen 5,) cartridgeIndicati ons:Type 1 diabetes mellitus with hyperglycemia (HCC) Change pod every 3 days 30 each 3 10/25/19 24 Active Omnipod Dash Pods, Gen 4, cartridgeIndicati ons:Type 1 diabetes mellitus with hyperglycemia (HCC) CHANGE pod EVERY 3 DAYS 30 each 3 10/27/19 24 Active blood-glucose sensor (Dexcom G6 Sensor) deviceIndications :Type 1 diabetes mellitus with hyperglycemia (HCC) USE ONE SENSOR FOR 10 DAYS THEN REPLACE WITH NEW SENSOR 9 each 1 11/29/19 24 Active Dexcom G6 Transmitter deviceIndications :Type 1 diabetes mellitus with hyperglycemia (HCC) Change transmitter every 90 days Dx:[id number] insulin dependent Jad 07/13/23 3 each 1 12/02/19 24 Active Active Problems Problem Noted Date Diagnosed Date CAD (coronary artery disease) 04/05/2024 Hypertension associated with type 1 diabetes carter litus 11/11/2023 Hyperlipidemia due to type 1 diabetes mellitus 0 11/11/2023 Diabetic polyneuropathy asso ciated with type 1 diabetes mellitus 11/11/2023 Type 1 diabetes mellitus with hyperglycemia 06/25 Assessment & Plan (07/13/2023 4:09 PM CORE ANALYSIS OPERATOR): Hba1c was Lab Results Component Value Date HGBA1C 6.5 07/13/2023 today, indicating adequate DM control with hypoglycemia Goal Hba1c under 7 and blood glucose level in the 120-160 range was explained Low carb diet and daily aerobic and /or resistant exercise were advised Prevention and treatment of hyypoglcyemia were discussed with the patient Blood glucose monitoring : Continue CGM with freestyle Kaylee Adjustment to medications: Pump settings adjusted, lowering basal rate, mostly at night to prevent hypoglycemia These are your new insulin pump settings : 12a 1.1 930 1.5 1pm 1.5 5pm 1.4 ISF 40 ICR 8 BGT 100 Continue Ozempic 2 mg weekly Will upgrade to Omnipod 5 Postoperative hypothyroidism 07/13/2023 Assessment & Plan (07/13/2023 4:10 PM CORE ANALYSIS OPERATOR): Update TSH and free T4 Update TG level Continue levothyroxine, will adjust dose, if indicated as per labs above Surgical History Surgery Date Site/Laterality Comments CARPAL TUNNEL RELEASE SECTION Medical History Medical History Date Comments Thyroid cancer (HCC) Diabetes (HCC) Hypertension Coronary artery disease Family History Medical History Relation Name Comments Colon cancer Other uncle Lung cancer Other uncle Relation Name Status Comments Other uncle Social History Tobacco Use Types Packs/Day Years Used Date Smoking Tobacco: Never Tobacco Cessation:Counseling Given: Not Answered PHQ-2 Answer Date Recorded PHQ-2 Total Score (If total score is 3 or more points, staff should administer the PHQ-9) 1 07/13/2023 Personal Safety Answer Date Recorded Getting School Help Needed Not on file 07/10 Comments Unknown Sex and Gender Information Value Date Recorded Sex Assigned at Not on file Legal Sex Female 7:00 AM CORE ANALYSIS OPERATOR Gender Identity Not on file Sexual Orientation Not on file Obstetrics History Last Filed Vital Signs Vital Sign Reading Time Taken Comments Blood Pressure 120/70 07/13/2023 1:51 PM CORE ANALYSIS OPERATOR Pulse 81 07/13/2023 1:51 PM CORE ANALYSIS OPERATOR Temperature 36.6 C (97.8 F) 07/01/2017 3:02 PM CORE ANALYSIS OPERATOR Respiratory Rate 18 07/13/2023 1:51 PM CORE ANALYSIS OPERATOR Oxygen Saturation 99% 07/01/2017 3:02 PM CORE ANALYSIS OPERATOR Inhaled Oxygen Concentration - - Weight 117.7 kg (259 lb 6.4 oz) 07/13/2023 1:51 PM CORE ANALYSIS OPERATOR Height 170.2 cm (5' 7 ) 07/13/2023 1:51 PM CORE ANALYSIS OPERATOR Body Mass Index 40.63 07/13/2023 1:51 PM CORE ANALYSIS OPERATOR Plan of Treatment Health Maintenance Due Date Last Done Comments Albumin Creatinine Ratio, Urine 1961 Cervical Cancer Screening 1961 Colon Cancer Screening-Colonoscopy 1961 Foot Exam 1961 Hepatitis C Screening 1961 Dilated Eye Exam 1971 Hepatitis B Screening 1979 Regular Well Visit/Exam 18-64 1979 Zoster Vaccine (1 of 2) 2011 Breast Cancer Screening-Mammogram 06/24/2016 015, 04/30/2014 Pneumococcal vaccine <65 (2 of 2 - PCV) 01/05/2022 01/05/2021, 03/22/2019 Hemoglobin A1C 01/12/2024 07/13/2023, 06/0 01/2016, 03/14/2013 Covid-19 Vaccine (2023-2 5 season) 2024 06/16/2021, 10/27/2020, 09/29/2020 Depression Screening 07/13/2024 07/13/2023 Lipid Panel 07/13/2024 07/13/2023, 09/22, 09/15/2015, Additional history exists TSH Level 07/13/2024 07/13/2023, 09/22, 03/14/2013 eGFR 07/13/2024 07/13/2023 Influenza Vaccine (Season Ended) 2025 05/05/2020, 03/22/2019, 06/07/2017 DTaP/Tdap/Td Vaccine (2 - Td or Tdap) 05/05/2030 05/05/2020 Colon Cancer Screening-FIT Discontinued 12/30/2015 Procedures Procedure Name Priority Date/Time Associated Diagnosis Comments EGFR Routine 07/13/2023 3:02 PM CORE ANALYSIS OPERATOR Postoperative hypothyroidism LIPID PANEL Routine 07/13/2023 3:02 PM CORE ANALYSIS OPERATOR Type 1 diabetes mellitus with hyperglycemia (HCC) TSH Routine 07/13/2023 3:02 PM CORE ANALYSIS OPERATOR Postoperative hypothyroidism POCT HEMOGLOBIN A1C Routine 07/13/2023 1 :51 PM CORE ANALYSIS OPERATOR Type 1 diabetes mellitus with hyperglycemia (HCC) OCCULT BLOOD, FECAL (FIT) Routine 12/30/2015 5:10 PM CDT SCREENING MAMMOGRAM BILATERAL W LYNNETTE Routine 06/24/2015 7:26 AM CORE ANALYSIS OPERATOR from Last 3 Months or Most Recently Relevant to Health Maintenance Results * eGFR (07/13/2023 3:02 PM CORE ANALYSIS OPERATOR) eGFR 71 mL/min/1. 73 m2 MANE KEARNEY Comment: Interpretive Data Reference Interval Normal >/= 90 mL/min/1.73m2 Mildly decreased* 60 - 89 mL/min/1.73m2 Mildly to moderately decreased 45 - 59 mL/min/1.73m2 Moderately to severely decreased 30 - 44 mL/min/1.73m2 Severely decreased 15 - 29 mL/min/1.73m2 Kidney Failure < 15 mL/min/1.73m2 *Relative to young adult level Estimated glomerular filtration rate is determined by the 2020 CKD-EPI equation recommended by the National Kidney Foundation (A Unifying Approach to GFR Estimation: Recommendations of the NKF-ASK Task Force on Reassessing the Inclusion of Race in Diagnosing Kidney Disease, JASN 2020). The CKD-EPI equation should not be used for patients with unstable renal function and has not been validated in children and those over 70. Current interpretive data was last reviewed 2021. Blood 07/13/2023 3:02 PM CORE ANALYSIS OPERATOR 07/13/2023 7:52 PM CORE ANALYSIS OPERATOR us Miguel Ángel Darnell MD LAB BLOOD ORDERABLES Final Resul t MANE KEARNEY [id number] [place] [address] * TSH (07/13/2023 3:02 PM CORE ANALYSIS OPERATOR) Thyroid Stimulating Hormone 0.70 0.30 - 4.20 mcIUnit/mL MANE Blood 07/13/2023 3:02 PM CORE ANALYSIS OPERATOR 07/13/2023 7:06 PM CORE ANALYSIS OPERATOR us Miguel Ángel Darnell MD LAB BLOOD ORDERABLES Final Resul t MANE [id number] [place] [address] * (ABNORMAL) Lipid panel (07/13/2023 3:02 PM CORE ANALYSIS OPERATOR) Cholesterol 111 30 - 199 mg/dL MANE Comment: Interpretive Data Ages < or = 19 years Acceptable: <170 mg/dL Borderline high: 170-199 mg/dL High: >or= 200 mg/dL Ages > or = 20 years Desirable: <200 mg/dL Borderline high: 200-239 mg/dL High: >or= 240 mg/dL Literature References: 1. Expert Panel on Integrated Guidelines for Cardiovascular Health and Risk Reduction in Children and Adolescents. Pediatrics 2011;128:S213 2. NCEP Expert Panel. Circulation 2004;110:227 Current Interpretive Data was last revised on 2018. Triglycerides 100 <=149 mg/dL MANE Comment: Interpretive Data Ages < or = 9 years Acceptable: <75 mg/dL Borderline high: 75-99 mg/dL High: >or= 100 mg/dL Ages 10 to 20 years Acceptable: <90 mg/dL Borderline high: 90-129 mg/dL High: >or= 130 mg/dL Ages > or = 20 years Desirable: <150 mg/dL Borderline high: 150-199 mg/dL High: 200-499 mg/dL Very high: >or= 499 mg/dL Literature References: 1. Expert Panel on Integrated Guidelines for Cardiovascular Health and Risk Reduction in Children and Adolescents. Pediatrics 2011;128:S213 2. NCEP Expert Panel. Circulation 2004;110:227 Current Interpretive Data was last revised on 2018. HDL 37(L) >=40 mg/dL MANE KEARNEY Comment: Interpretive Data Ages < or = 19 years Acceptable: >45 mg/dL Borderline low: 40-45 mg/dL Low: <40 mg/dL Ages > or = 20 years Desirable: >or= 60 mg/dL Low: <40 mg/dL Literature References: 1. Expert Panel on Integrated Guidelines for Cardiovascular Health and Risk Reduction in Children and Adolescents. Pediatrics 2011;128:S213 2. NCEP Expert Panel. Circulation 2004;110:227 Current Interpretive Data was last revised on 2018. LDL, calculated 54 <=129 mg/dL MANE KEARNEY Comment: Interpretive Data Ages < or = 19 years Acceptable: <110 mg/dL Borderline high: 110-129 mg/dL High: >or= 130 mg/dL Ages > or = 20 years Optimal: <100 mg/dL Near optimal: 100-129 mg/dL Borderline high: 130-159 mg/dL High: >160 mg/dL Literature References: 1. Expert Panel on Integrated Guidelines for Cardiovascular Health and Risk Reduction in Children and Adolescents. Pediatrics 2011;128:S213 2. NCEP Expert Panel. Circulation 2004;110:227 Current Interpretive Data was last revised on 2018. Non-HDL Cholesterol 74 mg/dL MANE KEARNEY Comment: Interpretive Data Ages < or = 19 years Acceptable: <120 mg/dL Borderline high: 120-144 mg/dL High: >145 mg/dL Ages > or = 20 years When triglycerides are >200 mg/dL, Non-HDL cholesterol is a secondary target of therapy with treatment goals that are 30 mg/dL greater than the LDL cholesterol target. Literature References: 1. Expert Panel on Integrated Guidelines for Cardiovascular Health and Risk Reduction in Children and Adolescents. Pediatrics 2011;128:S213 2. NCEP Expert Panel. Circulation 2004;110:227 Current Interpretive Data was last revised on 2018. Chol/HDL ratio 3 MANE KEARNEY Blood 07/13/2023 3:02 PM CORE ANALYSIS OPERATOR 07/13/2023 7:06 PM CORE ANALYSIS OPERATOR us Miguel Ángel Darnell MD LAB BLOOD ORDERABLES Final Resul t MANE KEARNEY [id number] [address] Department [place] [address] * (ABNORMAL) POCT hemoglobin A1c (07/13/2023 1:51 PM CORE ANALYSIS OPERATOR) Hemoglobin A1C, POC 6.5 % Blood spot 07/13/2023 1:51 PM CORE ANALYSIS OPERATOR us Miguel Ángel Darnell MD POINT OF CARE TEST ORDERABLES Fi nal Result * Occult blood, fecal non neoplasm screening (12/30/2015 5:10 PM CDT) Stool Occult Blood NEGATIVE NEGATIVE 12/30/2015 5:10 PM CDT 12/30/2015 5:41 PM CDT Narrative [facility] HISTORICAL RESULTS - 12/30/2015 8:43 PM CDT Collected By FB us Karrie Polanco NP LAB BODY FLUIDS AND STOOLS O RDERABLES Final Result [facility] HISTORICAL RESULTS * Screening Mammogram Bilateral W Lynnette (06/24/2015 7:26 AM CORE ANALYSIS OPERATOR) Anatomical Region Laterality Modality Breast Bilateral Mammography 06/24/2015 7:26 AM CORE ANALYSIS OPERATOR Impressions 06/24/2015 10:54 AM CORE ANALYSIS OPERATOR BI-RAD 1 NEGATIVE There is no mammographic evidence of malignancy. A 1 year screening mammogram is recommended. The patient has been or will be contacted. The patient will be entered into an automated reminder system to schedule a mammogram in one year. Electronically signed by: Dr. tK Torres nh/penrad:06/24/2015 10:52:58 Safety And Health Consultant: Zoya MURPHY(R)(M), [facility] letter sent: Normal Exam Reading location: BI-RADS: 1 Negative [EOD] Narrative 06/24/2015 10:54 AM CORE ANALYSIS OPERATOR - CHANG BILAT SCREENING 3D W/CAD BILATERAL DIGITAL SCREENING MAMMOGRAM 3D/2D WITH CAD WITH MEDIOLATERAL OBLIQUE CRANIOCAUDAL: 06/24/2015 The study was acquired using full field digital technology and interpreted from soft copy. Current study was also evaluated with R2 CAD. 2D digital mammographic views, as well as 3D digital tomosynthesis were performed in the CC and MLO projections. CLINICAL: Routine mammogram. Patient denies any problems today. No personal or family history of breast cancer. COMPARISONS: Comparison is made to exams dated: 04/30/2014 mammogram and 12/14/2011 mammogram - [facility]. BREAST TISSUE: The tissue of both breasts is almost entirely fatty. FINDINGS: No significant masses, calcifications, or other findings are seen in either breast. There has been no significant interval change. Procedure Note Provider, MD Ana M - 12/08/2020 - CHANG BILAT SCREENING 3D W/CAD BILATERAL DIGITAL SCREENING MAMMOGRAM 3D/2D WITH CAD WITH MEDIOLATERALOBLIQUE CRANIOCAUDAL: 06/24/2015 The study was acquired using full field digital technology and interpretedfrom soft copy. Current study was also evaluated with R2 CAD. 2D digital mammographic views, as well as 3D digital tomosynthesis were performed in the CC and MLO projections. CLINICAL: Routine mammogram. Patient denies any problems today. Nopersonal or family history of breast cancer. COMPARISONS: Comparison is made to exams dated: 04/30/2014 mammogram and 12/14/2011 mammogram - [facility]. BREAST TISSUE: The tissue of both breasts is almost entirely fatty. FINDINGS: No significant masses, calcifications, or other findings areseen in either breast. There has been no significant interval change. IMPRESSION: BI-RAD 1 NEGATIVE There is no mammographic evidence of malignancy. A 1 year screeningmammogram is recommended. The patient has been or will be contacted. The patient will be entered into an automated reminder system to schedulea mammogram in one year. Electronically signed by: Dr. Kt Torres nc/penrad:06/24/2015 10:52:58 Safety And Health Consultant: Zoya Garza RT(R)(M), [facility] letter sent: Normal Exam Reading location: BI-RADS: 1 Negative [EOD] us Kody Gabriel MD IMG MAMMO PROCEDURES Final Result from Last 3 Months or Most Recently Relevant to Health Maintenance Care Teams Cistern Room Working Supervisor Relationship Specialty Start Date End Date David Yuen MD [id number] [address] PCP - General 03/12/20
--- OUTSIDE RECORDS SUMMARY | 2024-12-16 10:01 | XMS_ITS | Data Portability ---
Author Organization [place] - [facility], [facility] V[facility] Address [address] [place] [address] Care Team Providers Care Attractions Associate Name Role Phone KRISTIAN VOSS Referring Provider [phone] JIAN PATRICK Orthopedic Surgeon [phone] Assessment No assessment recorded. Plan of Treatment Reminders Order Date Submit Date Provider Last Modified By Organization Details Last Modified Time Details Appointments None record ed. Lab None record ed. Referral None record ed. Procedures None record ed. Surgeries None record ed. Imaging None record ed. Medication Orders None record ed. Patient TargetsNo targets recorded. Patient InstructionsNo instructions recorded. Reason for Referral None Reported. Results Created Date Observation Date Name Description Value Unit Range Abnormal Flag Note LastModifiedBy Organization Detail LastModifiedTime 12/02/19 24 12/01/2023 XR, wrist , 3 or more view No observ ation record ed. anegan [facility] [address], [address], 12/02/2023 12:30:58 12/02/19 24 12/01/2023 XR, wrist , 3 or more view No observ ation record ed. [employer]aneLotus Cars [facility] 509 [facility] [address], [address], 12/02/2023 12:30:58 03/13/20 24 03/12/2024 MRI, andrew brock, w/o contr ast No observ ation record ed. [facility] [address] [place], [address], 08/31/2024 14:32:52 Result Notes None recorded. Problems Name Problem SNOMED Code Status Onset Date Resolution Date Notes Provider Name and Address Organization Details Recorded Time Postoperati ve hypothyroid ism 00827782 Active 2023 Dari Platan null, [facility] 4 08:41:25 Hyperglycem ia 26077578 Active 2023 Dari Platan null, [facility] 4 08:41:34 Obstructive sleep apnea syndrome 51398797 Active 2023 Dari Platan null, [facility] 4 08:41:46 Stented coronary artery 311956380 Active 2023 Dari Platan null, [facility] 4 08:41:57 Insomnia 534994247 Active 2023 Dari Platavictorino null, [facility] 4 08:42:03 Glaucoma 62999530 Active 2023 Dari Platan null, [facility] 4 08:42:14 Peripheral nerve disease 119134975 Active 2023 Dari Platan null, [facility] 4 08:42:25 Depressive disorder 79687647 Active 2023 Dari Platan null, [facility] 4 08:42:32 Hypothyroid ism 82023908 Active 2023 Dari Platan null, [facility] 4 08:42:40 Type 1 diabetes mellitus 60216557 Active 2023 Dari Bonin null, [facility] 4 08:42:51 Essential hypertensio n 93577397 Active 2023 Dari Bonin null, [facility] 4 08:42:59 Pain of left wrist 8715641677022 02 Active 2023 Dari Bonin null, [facility] 4 08:46:35 Pain of right wrist 1132970110869 00 Active 2023 Dari Platavictorino mikhail, [facility] 4 08:47:23 Bilateral carpal tunnel syndrome 1174784257921 9101 Active 2023 Jian Patrick MD [address] [place], [address], [facility] 4 11:48:06 Full thickness rotator cuff tear 024891392 Active 2023 Jian Patrick MD [address] [place], [address], [facility] 4 14:42:58 Pain of left shoulder joint 7232879852798 9109 Active 2023 Adrian Garcia mikhail, [facility] 14:48:28 Notes:Some problems listed i n Document: #[id number] could not be added to this patient's chart. Please review this document and add these problems to the patient's chart manually as needed. Problem Notes None recorded. Procedures Surgical History Date Name Laterality Status Provider Name and Address Organization Details Recorded Time Knee Surgery completed Darisita Platavictorino [facility] 12/01/2023 08:44:05 [facility] 08:44:16 colonoscopy completed Dariinés Platavictorino [facility] 12/01/2023 08:44:24 section completed Dari Bonivictorino [facility] 12/01/2023 08:44:40 [facility] 08:45:07 Imaging Results Imaging Date Name Status [facility] by [facility] Details LastModified Time 12/01/2023 XR, wrist, 3 or more view completed rhanegan [facility] [address] [facility] [address] [place] [address], [address], 12/02/2023 12:30:58 12/01/2023 XR, wrist, 3 or more view completed rhanegan [facility] [address] [facility] [address], [place], [address], 12/02/2023 12:30:58 03/12/2024 MRI, shoulder, w/o contrast completed [facility] [address] [place], [address], 08/31/2024 14:32:52 Procedure Notes None recorded. Medical Equipment None Reported. Allergies Allergen ID Allergen Name Allergen Category Reaction Reaction Severity Criticality Documentation Date Start Date Code Code System Note Provider Name and Address Organization Details Recorded Time 608515 atorvasta tin medicatio n muscle cramps Not available Not available 12/01/2023 29696 RxNorm Dari Hanegan [facility], [facility] 4 08:37:46 130227 codeine medicatio n Not available Not available Not available 12/01/2023 2670 RxNorm Dari Hanegan [facility], [facility] 4 08:37:53 695445 metoprolo l Not available dizziness Not available Not available 12/01/2023 6918 RxNorm Dari Hanegan [facility], [facility] 4 08:38:04 Medications Name Sig Start Date Stop Date Status Note LastModified by Organization Details LastModified Time omnipod op5 controller USE FOR INSULIN ADMINISTR ATION active Not Available Not Available No t Available levothyroxi ne 175 mcg tablet TAKE ONE TABLET BY MOUTH EVERY MORNING FOR THYROID 01/23 completed Not Available Not Available Not Available levothyroxi ne 137 mcg tablet TAKE [...] Not Available Not Available No t Available clopidogrel 75 mg tablet TAKE ONE TABLET BY MOUTH EVERY MORNING TO PREVENT BLOOD CLOTS active Not Available Not Available No t Available tramadol 50 mg tablet TAKE ONE TABLET BY MOUTH FOUR TIMES DAILY NEEDED FOR PAIN active Not Available Not Available No t Available potassium chloride ER 20 mEq tablet,exte nded release(par t/cryst) TAKE ONE TABLET BY MOUTH THREE TIMES A WEEK FOR POTASSIUM REPLACEME NT MAY DISOLVE IN WATER AND DRINK active Not Available Not Available No t Available Humalog U-100 Insulin 100 unit/mL subcutaneou s solution inject 200 units every THREE DAYS via insulin pump active Not Available Not Available No t Available hydrocodone 7.5 mg-acetamin ophen 325 mg tablet TAKE ONE TABLET BY MOUTH EVERY 6 HOURS NEEDED FOR MODERATE (4-6) PAIN active Not Available Not Available No t Available cephalexin 500 mg capsule TAKE ONE CAPSULE BY MOUTH EVERY MORNING, MID-DAY, AND ONE IN THE EVENING FOR 10 DAYS FOR INFECTION 01/23 completed Not Available Not Available Not Available lisinopril 10 mg tablet TAKE 1 TABLET BY MOUTH EVERY DAY IN THE MORNING FOR BLOOD PRESSURE active Not Available Not Available No t Available glucose 4 gram chewable tablet active Not Available Not Available Not Available gabapentin 300 mg capsule TAKE THREE CAPSULES BY MOUTH THREE TIMES DAILY EVERY MORNING, & AT 3PM & AT BEDTIME FOR PAIN MANAGEMEN T active Not Available Not Available No t Available aspirin 81 mg tablet Take by oral route. active Not Available Not Available No t Available furosemide 20 mg tablet TAKE ONE TABLET BY MOUTH THREE TIMES PER WEEK DIRECTED FOR FLUID RETENTION active Not Available Not Available No t Available gentamicin 0.1 % topical ointment APPLY TO THE AFFECTED AREA(S) of TO WOUND DAILY. cover with gauze 11/30 completed Not Available Not Available Not Available ciclopirox 0.77 % topical cream APPLY TO THE AFFECTED AREA(S) ON FEET ONCE OR TWICE DAILY active Not Available Not Available No t Available ezetimibe 10 mg tablet TAKE ONE TABLET BY MOUTH AT BEDTIME FOR CHOLESTER OL active Not Available Not Available No t Available Creon 36,000 unit-114,00 0 unit-180,00 0 unit capsule,del ayed release TAKE ONE CAPSULE BY MOUTH THREE TIMES DAILY IN THE MORNING & AT3PM & AT BEDTIME active Not Available Not Available No t Available Omnipod Dash Pods (Gen 4) subcutaneou s cartridge CHANGE pod EVERY 3 DAYS active Not Available Not Available No t Available Baqsimi 3 mg/actuatio n nasal spray active Not Available Not Available Not Available FreeStyle Kaylee 2 Sensor kit CHANGE EVERY 14 DAYS active Not Available Not Available No t Available Ozempic 2 mg/dose (8 mg/3 mL) subcutaneou s pen injector INJECT TWO MG UNDER THE SKIN EVERY WEEK active Not Available Not Available No t Available Omnipod 5 G6 Pods (Gen 5) subcutaneou s cartridge USE DIRECTED active Not Available Not Available No t Available Vitals Date Recorded Body weight Body mass index (BMI) Body height Heart rate Oxygen saturation Oxygen saturation in Arterial blood by Pulse oximetry Systolic blood pressure Diastolic blood pressure Provider Name and Address Organization Details Last Updated DateTime 4 621242. 76 g 42 kg/m2 170.18 cm 77 /min 98 % 98 % 169 mm[Hg] 88 mm[Hg] Dariinés Platavictorino [facility] 4 11:08:14 Date Recorded Body height Body mass index (BMI) Body weight Heart rate Oxygen saturation Oxygen saturation in Arterial blood by Pulse oximetry Systolic blood pressure Diastolic blood pressure Provider Name and Address Organization Details Last Updated DateTime 4 170.18 cm 43.2 kg/m2 568259. 49 g 80 /min 96 % 96 % 136 mm[Hg] 75 mm[Hg] Dariinés Platavictorino [facility] 4 14:31:21 Social History Question Answer Notes LastModified by Organizat ion Details LastModified Time Tobacco Smoking Status Never Smoker Dari Platavictorino [facility] 12/01/2023 08:43:41 What Is Your Level Of Caffeine Consumption? Moderate Information not available 12/01/2023 Do You Feel Hopeless Or Helpless No Information not available 12/01/2023 Have You Had Thoughts Of Suicide? No Information not available 12/01/2023 Are You Having Any Suicidal Thoughts Now? No Information not available 12/01/2023 Have You Previously Attempted Suicide? No Information not available 12/01/2023 Do You Have A Plan To Hurt Yourself Or Others? No Information not available 12/01/2023 Has A Family Member Or Someone Close To You Committed Suicide Or Have You Been A Witness To Suicide? No Information not available 12/01/2023 Have You Fallen In The Last 3 Months? No Information not available 12/01/2023 What Was The Date Of Your Most Recent Tobacco Screening? 03/08/2024 Information not available 02/28/2024 Sex: Unknown Functional Status Question Answer Note LastModified by Organizat ion Details LastModified Time Do you use any illicit or recreational drugs? No Information not available 02/02/2024 Do you or have you ever used any other forms of tobacco or nicotine? No Information not available 12/01/2023 What is your level of alcohol consumption? None Information not available 12/01/2023 Mental Status None recorded. Family History Relationship Description Onset Age of this Age Resolved Age Notes LastModified by Organization Details LastModified Time Mother Heart disease rhanegan Not available 2023 08:39:56 Mother Hypertensive disorder rhanegan Not available 2023 08:40:26 Mother Diabetes mellitus rhanegan Not available 2023 08:40:41 Father Heart disease rhanegan Not available 2023 08:40:04 Father Hypertensive disorder rhanegan Not available 2023 08:40:26 Father Diabetes mellitus rhanegan Not available 2023 08:40:41 Father Hypercholest erolemia rhanegan Not available 2023 08:41:00 Medical History Condition Response HEART VALVE DISORDERS N USE OF BLOOD THINNERS Y DIABETES, TYPE Y ALLERGIES/HAYFEVER Y HEART ARRHYTHMIA N LUNG DISEASE/DISORDER N HISTORY OF DRUG ABUSE N RADIATION / CHEMOTHERAPY Y COPD N HIGH CHOLESTEROL / HYPERLIPIDEMIA Y DVT N BLOOD CLOTS N HEPATITIS / LIVER DISEASE N CAROTID BLOCKAGE Y STROKE/TIA N NEUROPATHY Y HEART DISEASE/HEART PROBLEMS Y HYPERTENSION Y CARDIAC ARRHYTHMIA N CANCER: SPECIFY Y Metal allergy N BLOOD TRANSFUSION N ANEMIA/BLOOD DISORDER Y URINARY/BLADDER/KIDNEY PROBLEMS N CORONARY ARTERY DISEASE (CAD) N Gynecological HistoryNo gynecological history recorded. Obstetrics History GPAL:G 0 P 0 0 0 0 Past Encounters Encounter ID Performer Location Encounter Start Date Encounter Closed Date Diagnosis/Indication Diagnosis SNOMED-CT Code Diagnosis ICD10 Code Diagnosis Note [id number] Jian Patrick MD [facility] [address] [address] 12/01/2023 10:48:33 12/01/2023 12:06:52 Body mass index 40+ - severely obese 700264240 Z68.41 Bilateral carpal tunnel syndrome 6815205031 9409970 G56.03 patient has severe nocturnal paresthesi as waking her up every night she has a little bit of early weakness to the thumb musculatur e will schedule her to go ahead and do the left carpal tunnel release that she has been doing bracing for months and months now without any improvemen t. At the same time we will inject the right carpal tunnel with a small amount of Kenalog steroid if this helps the symptoms great if it helps only temporaril y at least then we know it would be worth doing a rough repeat release of the carpal tunnel on the right as the injection correlates closely with the surgery and has a good test to predict whether not it would be worth repeat surgery on the right she understand s the risks the benefits alternativ es wished to proceed with the left carpal tunnel release and the injection of the right carpal tunnel [id number] Jian Patrick MD [facility] [address] [address] 02/02/2024 14:23:32 02/02/2024 14:59:06 Bilateral carpal tunnel syndrome 9387704775 4481572 G56.03 remove sutures work on nerve and tendon glides will see her back in a few weeks for follow-up Pain of left wrist 94749 96276 75503 M25.532 Body mass index 40+ - severely obese 839622442 Z68.41 Full thick ness rotator cuff tear 149810493 M75.122 patient has been doing therapy up in [place] continues with significan t pain to the left shoulder weakness with overhead use and pain at night in the shoulder x-ray showed some AC arthritis and signs of impingemen t.. having failed the medical regiment and the therapy we will set her up for an MRI scan of the left shoulder to rule out a rotator cuff tear associated with the impingemen t Health Concerns Section Related Observation LastModified by Organization Detai ls LastModified Time None Recorded Concern Status LastModified by Organization Details LastModified Time None Recorded Advance Directives Directive None Recorded Payers Insurance Date Sequence Insurance Name Policy Number Policy [place] Covered Member ID [place] Member ID Guarantor Name 03/05/2024 1 [id number] Ashely Carreno [id number] Ashely Carreno Notes Date Note Type Note Provider Name and Address Organization Details Recorded Time 12/01/2023 text/html Patient presents with nocturnal paresthesias left greater than right hand. Patient had right carpal tunnel release about 17 years ago did very well until recently and now she is having recurrence of numbing and tingling. Patient does a lot a heavy repetitive use of her hands with typing and writing activities throughout the day she also has a diabetic which more common for nerve issues and she is also morbidly obese with a BMI of 40 for another risk factor for carpal tunnel and recurrence of carpal tunnel. She is waking up every night with burning and tingling in both hands dropping things with activities and [place] [address] [place] [address], [phone], [place] [facility] 12/01/2023 11:49:19 02/02/2024 text/html patient is doing very well after left carpal tunnel release numbing and tingling of gone away of nocturnal paresthesias of gone away. Still having pain in her left shoulder where she has some AC arthritis causing some impingement on her cuff she has done medical regiment send therapy without improvement we will go and get an MRI scan now on the left shoulder now [place] [address] [place] [address], [phone], [facility] 02/02/2024 14:43:47 OBGyn Episode No OBEpisode recorded.
--- OUTSIDE RECORDS SUMMARY | 2024-12-16 10:01 | XMS_ITS | CONTINUITY OF CARE DOCUMENT ---
Author Name leelee mckoy Address Unknown Organization [facility] Address [address] [place] [address] Phone [phone] Care Team Providers Care Child Care Team Lead Name Role Phone Rafy Ferrer MD Unavailable KRISTIAN VOSS MD Unavailable KRISTIAN VOSS MD Unavailable PROBLEMS Condition Status Date Provider Notes Iron deficiency anemia active Nadia Prince RN HTN essential active Rafy Ferrer MD Hyperlipidemia active Rafy Ferrer MD CAD, LCX stent 3-4 years ago , PTCA/ANALI mLAD and m-dLAD in 08/2019 w/o TN active Rafy Ferrer MD Hypothyroidism active Rafy Ferrer MD Morbid obesity active Rafy Ferrer MD Diabetes mellitus, type 1 active Rafy lemus MD Abnormal EKG active Rafy Ferrer MD Depression active Rafy Ferrer MD Dyspnea on exertion active Rafy Tanner Leg pain, bilateral, nml JAYLAN 12/2018 active Rafy Ferrer MD Leg edema, bilateral completed - Rafy Ferrer MD Chest pain active Rafy Ferrer MD Family Hx heart disease active Rafy Brown ra, MD Venous insufficiency, intolerant of support hose active Rafy Ferrer MD Elevated c-reactive protein active Rafy macario MD Anemia completed - Rafy Ferrer MD Snoring completed - Rafy Ferrer MD TJ, moderate, intolerant of cpap active Rafy Ferrer MD ENCOUNTERS Date Type Provider Location Encounter Diag nosis - In-person encounter Office Visit Rafy Ferrer MD [facility] - In-person encounter Office Visit Rafy Ferrer MD [place] - In-person encounter Office Visit Rafy Ferrer MD [facility] - In-person encounter Office Visit Rafy Ferrer MD [facility] - In-person encounter Office Visit Rafy Ferrer MD [place] [facility] Venous insufficiency, intolerant of support hose - In-person encounter Office Visit Rafy Ferrer MD [facility] - In-person encounter Office Visit Rafy Ferrer MD [facility] - In-person encounter Office Visit Rafy Ferrer MD [facility] - In-person encounter Office Visit Rafy Ferrer MD [facility] - In-person encounter Office Visit Rafy Ferrer MD [facility] AnemiaOSA, moderate, intolerant of cpap - In-person encounter Office Visit Rafy Ferrer MD [place] Leg pain, bilateral, nml JAYLAN 12/2018 - In-person encounter Office Visit Rafy Ferrer MD [facility] - In-person encounter Office Visit Rafy Ferrer MD [facility] CAD, LCX stent 3-4 years ago, PTCA/ANALI mLAD and m-dLAD in 08/2019 w/o MISnoringOSA, moderate, intolerant of cpap - In-person encounter Office Visit Rafy Ferrer MD [facility] CAD, LCX stent 3-4 years ago, PTCA/ANALI mLAD and m-dLAD in 08/2019 w/o MILeg edema, bilateralElevated c-reactive protein - In-person encounter Office Visit Rafy Ferrer MD [facility] Venous insufficiency, intolerant of support hose - In-person encounter Office Visit Rafy Ferrer MD [facility] HTN essentialHyperlipidemiaCAD, LCX stent 3-4 years ago, PTCA/ANALI mLAD and m-dLAD in 08/2019 w/o MIHypothyroidismMorbid obesityDiabetes mellitus, type 1Abnormal EKGDepressionDyspnea on exertionLeg pain, bilateral, nml JAYLAN 12/2018Chest painFamily Hx heart disease VITAL SIGNS Date Observation Value Provider Body Mass Index (Ratio) 41.66 kg/m2 Jodie Ferrer MD blood pressure, diastolic 74 mm[Hg] [facility] blood pressure, systolic 119 mm[Hg] barbra [facility] oxygen saturation, oximetry 96 % [facility] pulse rate 77 /min [facility] respiratory rate E&M 12 /min [facility] weight E&M 266 [lb_av] [facility] height E&M 67 [in_i] [facility] blood pressure, cuff size regular [facility] Body Mass Index (Ratio) 43.54 kg/m2 Piotr Washburn blood pressure, cuff size large [facility] blood pressure, diastolic 90 mm[Hg] [facility] blood pressure, systolic 136 mm[Hg] [facility] oxygen saturation, oximetry 96 % [facility] respiratory rate E&M 14 /min [facility] pulse rate 80 /min [facility] weight E&M 278 [lb_av] [facility] height E&M 67 [in_i] [facility] Body Mass Index (Ratio) 43.54 kg/m2 Piotr b Nacht blood pressure, diastolic 86 mm[Hg] Va lerie Tony blood pressure, systolic 99 mm[Hg] Julita montana Tony weight E&M 278 [lb_av] Naty Tony pulse rate 92 /min Naty Tony oxygen saturation, oximetry 97 % Naty Tony respiratory rate E&M 14 /min Naty Tony blood pressure, cuff size large Va lerie Tony height E&M 67 [in_i] Naty Tony Body Mass Index (Ratio) 44.63 kg/m2 Jodie Ferrer MD blood pressure, cuff size large Ke rri Gruenenfeldreta blood pressure, diastolic 70 mm[Hg] Ke rri Gruenenfelder blood pressure, systolic 122 mm[Hg] Frida Aalrconeldreta oxygen saturation, oximetry 95 % Cait Jonnenfeldreta respiratory rate E&M 12 /min Cait G jameeleneghanshyameldreta pulse rate 84 /min Cait Gruenenfe [facility] weight E&M 285 [lb_av] Cait Gruenenfe ld height E&M 67 [in_i] Cait Gruenenfe lder Body Mass Index (Ratio) 40.25 kg/m2 Piotr germaine Nacht blood pressure, cuff size regular Ja rret blood pressure, diastolic 85 mm[Hg] Ja rret blood pressure, systolic 132 mm[Hg] Jar ret pulse rate 83 /min [facility] respiratory rate E&M 12 /min [facility] oxygen saturation, oximetry 98 % [facility] weight E&M 257 [lb_av] [facility] height E&M 67 [in_i] [facility] Body Mass Index (Ratio) 40.56 kg/m2 Jodie Ferrer MD blood pressure, diastolic 71 mm[Hg] Sophie nkLogpayton blood pressure, systolic 124 mm[Hg] Rina [facility] blood pressure, cuff size regular mao Sams blood pressure, diastolic 71 mm[Hg] mao Sams blood pressure, systolic 124 mm[Hg] She carter Sams respiratory rate E&M 18 /min Jelena Sams oxygen saturation, oximetry 96 % Jelena Sams pulse rate 87 /min Jelena Sams weight E&M 259 [lb_av] Jelena Sams height E&M 67 [in_i] Jelena Sams Body Mass Index (Ratio) 39.75 kg/m2 Jodie Ferrer MD blood pressure, diastolic 70 mm[Hg] Rubin Ferrer MD blood pressure, systolic 130 mm[Hg] Estuardo Ferrer MD weight E&M 253.8 [lb_av] Rafy Ferrer MD height E&M 67 [in_i] Rafy Ferrer MD Body Mass Index (Ratio) 40.40 kg/m2 Jodie Ferrer MD weight E&M 258 [lb_av] Rafy Ferrer MD height E&M 67 [in_i] Rafy Ferrer MD Body Mass Index (Ratio) 47.29 kg/m2 Piotr Washburn blood pressure, cuff size regular Cy ntjaquelina Mcclendon blood pressure, diastolic 80 mm[Hg] Cy nthia Mcclendon blood pressure, systolic 140 mm[Hg] Elisha joanna Mcclendon oxygen saturation, oximetry 97 % Shanice Mcclendon pulse rate 72 /min Shanice Campbel l respiratory rate E&M 16 /min Shanice Mcclendon weight E&M 302 [lb_av] Shanice Campbel l height E&M 67 [in_i] Shanice Adolfobel l Body Mass Index (Ratio) 45.89 kg/m2 Jodie Ferrer MD pulse rate 88 /min Dari Gar blood pressure, diastolic 75 mm[Hg] Rh onda Rin blood pressure, systolic 163 mm[Hg] Rho nda Rin oxygen saturation, oximetry 96 % Dari Gar weight E&M 293 [lb_av] Dariinés Gar blood pressure, resting Yes Luisn aislinn Gar respiratory rate E&M 18 /min Dariinés Gar blood pressure, cuff size regular Rh onaislinn Rin height E&M 67 [in_i] Dari Gar Body Mass Index (Ratio) 46.04 kg/m2 Jodie Ferrer MD blood pressure, diastolic 82 mm[Hg] Cy marky Hakan blood pressure, systolic 171 mm[Hg] Elisha vikrama Mcclendon blood pressure, cuff size regular Cy ntjaquelina Mcclendon pulse rate 90 /min Shanice Campbel l oxygen saturation, oximetry 97 % Shanice Mcclendon respiratory rate E&M 18 /min Shanice Mcclendon weight E&M 294 [lb_av] Shanice Adolfobel l height E&M 67 [in_i] Shanice Adolfobel l Body Mass Index (Ratio) 44.01 kg/m2 Jodie Ferrer MD blood pressure, diastolic 78 mm[Hg] Cy marky Mcclendon blood pressure, systolic 128 mm[Hg] Elisha joanna Mcclendon respiratory rate E&M 16 /min Shanicejoanna Mcclendon pulse rate 97 /min Shanice Connelly l oxygen saturation, oximetry 95 % Shanice Mcclendon blood pressure, cuff size regular Cy ntwillis Mcclendon weight E&M 281 [lb_av] Shanice Adolfobel l height E&M 67 [in_i] Shanice Matabel l Body Mass Index (Ratio) 44.48 kg/m2 [facility] ta Demecs RN blood pressure, diastolic 64 mm[Hg] devang Demecs RN blood pressure, systolic 140 mm[Hg] [facility] sta Demecs RN oxygen saturation, oximetry 98 % [place] Demecs RN respiratory rate E&M 20 /min [place] Demecs RN pulse rate 95 /min Nadia Demecs R N weight E&M 284 [lb_av] [place] Demecs R N Body Mass Index (Ratio) 45.10 kg/m2 [facility] ta Demecs RN blood pressure, cuff size large devang Demecs RN blood pressure, diastolic 70 mm[Hg] devang Demecs RN blood pressure, systolic 130 mm[Hg] [facility] sta Demecs RN oxygen saturation, oximetry 98 % [place] Demecs RN respiratory rate E&M 16 /min [place] Demecs RN pulse rate 79 /min [place] Demecs R N weight E&M 288 [lb_av] Nadia Demecs R N blood pressure, diastolic 72 mm[Hg] Rubin Ferrer MD blood pressure, systolic 121 mm[Hg] Estuardo jackie Ferrer MD Body Mass Index (Ratio) 43.22 kg/m2 Jodie Ferrer MD blood pressure, cuff size regular Cy ntwillis Mcclendon blood pressure, diastolic 70 mm[Hg] Cy nthia Mcclendon blood pressure, systolic 132 mm[Hg] Elisha thia Mcclendon pulse rate 99 /min Shanice Campbel l oxygen saturation, oximetry 96 % Shanice Mcclendon respiratory rate E&M 20 /min Shanice Mcclendon weight E&M 276 [lb_av] Shanice Campbel l height E&M 67 [in_i] Shanice Campbel l Body Mass Index (Ratio) 44.32 kg/m2 Jodie Ferrer MD blood pressure, cuff size large Cr marcin Mei blood pressure, diastolic 70 mm[Hg] Cr marcin Mei blood pressure, systolic 137 mm[Hg] Shaquille Mei oxygen saturation, oximetry 98 % Karrie Mei respiratory rate E&M 17 /min Karrie Mei pulse rate 90 /min Karrie silverman weight E&M 283 [lb_av] Karrie Ott s height E&M 67 [in_i] Karrie Ott s Body Mass Index (Ratio) 44.63 kg/m2 Jodie Ferrer MD oxygen saturation, oximetry 97 % Shanice Mcclendon respiratory rate E&M 16 /min Shanice Hakan pulse rate 90 /min Shanice Campbel l blood pressure, cuff size regular Cy ntjaquelina Hakan blood pressure, diastolic 70 mm[Hg] Cy nthia Hakan blood pressure, systolic 138 mm[Hg] Elisha thia Hakan height E&M 67 [in_i] Shanice Campbel l weight E&M 285 [lb_av] Shanice bentley ALLERGIES Allergy Name Onset Date Reaction Criticality Status METOPROLOL High Criticality active CODEINE SULFATE Low Criticality acti ve RESULTS Date Observation Value Provider Reference Range Interpretation Location D-dimer quantitative mcg/mL 0.53 MG/L FEU [facility] 0.00-0.49 High ferritin, serum 323 ng/mL [facility] 15-150 High iron saturation percent, serum 37 % [facility] 15-55 iron, serum 83 ug/dL [facility] 27-159 iron binding capacity, unsaturated 140 ug/dL [facility] [phone]/07/ 02 iron binding capacity, total 223 ug/dL [facility] 250-450 Low thyroid stimulating hormone, serum 2.210 u[IU]/mL [facility] 0.450-4.500 hemoglobin A1C, blood, as % of total hemoglobin 8.7 % [facility] 4.8-5.6 High calcium, serum 9.3 mg/dL [facility] 8.7-10.2 carbon dioxide, venous blood 26 mmol/L [facility] 20-29 chloride, serum 107 mmol/L [facility] 96-106 High potassium, serum 5.4 mmol/L [facility] 3.5-5.2 High sodium, serum 143 mmol/L [facility] [phone]/07/ 02 urea nitrogen/creatini ne ratio, serum 17 [facility] 9-23 eGFR if 93 mL/min/{1.73_m 2} [facility] >59 eGFR if not 80 mL/min/{1.73_m 2} [facility] >59 creatinine, serum 0.81 mg/dL [facility] 0.57-1.00 urea nitrogen, blood 14 mg/dL [facility] 6-24 blood glucose, random 236 mg/dL [facility] 65-99 High platelet count 258 X10E3/UL [facility] [phone]/07/ 02 red blood cell distribution width 15.4 % [facility] 11.7-15.4 mean corpuscular hemoglobin concentration, RBC 31.5 G/DL [facility] 31.5-35.7 mean corpuscular hemoglobin, RBC 27.6 pg [facility] 26.6-33.0 mean corpuscular volume, RBC 88 fL [facility] 79-97 hematocrit, blood 42.2 % [facility] 34.0-46.6 hemoglobin, blood 13.3 g/dL [facility] 11.1-15.9 erythrocyte (RBC) count 4.82 X10E6/UL [facility] 3.77-5.28 leukocyte count, blood 7.6 X10E3/[facility] 3[facility]-10.[facility] c-reactive protein, quantitative, serum 5.51 mg/L [facility] 0.00-3.00 High lipoprotein, beta, serum, point, quantitative, calculated 36 mg/dL [facility] 0-99 very low density lipoproteins 28 mg/dL [facility] 5-40 HDL cholesterol, serum 51 mg/dL [facility] triglyceride, serum, random 141 mg/dL [facility] 0-149 cholesterol, serum 115 mg/dL [facility] [phone]/02/ 22 ferritin, serum 8 ng/mL [facility] 15-150 Low iron saturation percent, serum 19 % [facility] 15-55 iron, serum 82 ug/dL [facility] 27[facility]159 iron binding capacity, unsaturated 354 ug/dL [facility] [phone]/02/ 22 iron binding capacity, total 436 ug/dL [facility] [phone]/01/ 24 thyroid stimulating hormone, serum 0.776 u[IU]/mL [facility] 0.450-4.500 calcium, serum 9.0 mg/dL [facility] 8.7-10.2 carbon dioxide, venous blood 17 mmol/L [facility] 20-29 Low chloride, serum 100 mmol/L [facility] 96-106 potassium, serum 4.8 mmol/L [facility] 3.5-5.2 sodium, serum 138 mmol/L [facility] 384-100 7063/01/ 24 urea nitrogen/creatini ne ratio, serum 15 [facility] 9-23 eGFR if 73 mL/min/{1.73_m 2} [facility] >59 eGFR if not 63 mL/min/{1.73_m 2} [facility] >59 creatinine, serum 0.99 mg/dL [facility] 0.57-1.00 urea nitrogen, blood 15 mg/dL [facility] 6-24 blood glucose, random 285 mg/dL [facility] 65-99 High prothrombin time (patient) 10.6 s [facility] 9.1-12.0 international normalized ratio (INR) 1.0 [facility] 0.8-1.2 lipoprotein, beta, serum, point, quantitative, calculated 40 mg/dL [facility] 0-99 very low density lipoproteins 33 mg/dL [facility] 5-40 HDL cholesterol, serum 48 mg/dL [facility] >39 triglyceride, serum, random 166 mg/dL [facility] 0-149 High cholesterol, serum 121 mg/dL [facility] [phone]/01/ 24 basophil count, absolute 0.1 x10E3/uL [facility] 0.0-0.2 Eosinophil Absolute Count 0.3 X10E3/UL [facility] 0.0-0.4 monocyte count, blood, automated 0.5 X10E3/UL [facility] 0.1-0.9 lymphocyte count, blood, automated 1.9 X10E3/UL [facility] 0.7-3.1 Absolute Neutrophils 4.8 X10E3/UL [facility] 1.4-7.0 basophils as percent of blood leukocytes 1 % [facility] Not Estab. eosinophils as percent of blood leukocytes 4 % [facility] Not Estab. monocytes as percent of blood leukocytes 7 % [facility] Not Estab. lymphocytes as percent of blood leukocytes 26 % [facility] Not Estab. neutrophils as percent of blood leukocytes 62 % [facility] Not Estab. platelet count 496 X10E3/UL [facility] 150-450 High red blood cell distribution width 17.1 % [facility] 11.7-15.4 High mean corpuscular hemoglobin concentration, RBC 28.1 G/DL [facility] 31.5-35.7 Low mean corpuscular hemoglobin, RBC 20.3 pg [facility] 26.6-33.0 Low mean corpuscular volume, RBC 73 fL [facility] 79-97 Low hematocrit, blood 25.3 % [facility] 34.0-46.6 Low hemoglobin, blood 7.1 g/dL [facility] 11.1-15.9 Low erythrocyte (RBC) count 3.49 X10E6/UL [facility] 3.77-5.28 Low leukocyte count, blood 7.6 X10E3/UL [facility] 3.4-10.8 hemoglobin A1C, blood, as % of total hemoglobin 8.0 % OF TOTAL HGB [facility] <5.7 High D-dimer quantitative mcg/mL 1.05 MCG/ML FEU [facility] <0.50 High mean platelet volume 11.8 fL [facility] 7.5-12.5 Normal platelet count 382 THOUSAND/UL [facility] 140-400 Normal red blood cell distribution width 16.5 % [facility] 11.0-15.0 High mean corpuscular hemoglobin concentration, RBC 29.6 G/DL [facility] 32.0-36.0 Low mean corpuscular hemoglobin, RBC 22.4 pg [facility] 27.0-33.0 Low mean corpuscular volume, RBC 75.6 fL [facility] 80.0-100.0 Low hematocrit, blood 30.1 % [facility] 35.0-45.0 Low hemoglobin electrophoresis, blood 8.9 [facility] 11.7-15.5 Low erythrocyte (RBC) count 3.98 MILLION/UL [facility] 3.80-5.10 Normal leukocyte (white blood cells) count, blood 7.4 THOUSAND/UL [facility] 3.8-10.8 Normal calcium, serum 9.3 mg/dL [facility] 8.6-10.4 Normal carbon dioxide, venous blood 28 mmol/L [facility] 20-32 Normal chloride, serum 104 mmol/L [facility] 98-110 Normal potassium, serum 4.3 mmol/L [facility] 3.5-5.3 Normal sodium, serum 142 mmol/L [facility] 135-146 Normal urea nitrogen/creatini ne ratio, serum NOT APPLICABLE (calc) [facility] 6-22 Estimated Glomerular Filtration Rate (calc) 92 mL/min/{1.73_m 2} [facility] > OR = 60 Normal creatinine, serum 0.82 mg/dL [facility] 0.50-1.05 Normal urea nitrogen, blood 15 mg/dL [facility] 7-25 Normal blood glucose, random 105 mg/dL [facility] 65-99 High LDL Size 215.6 Angstrom [facility] > OR = 217.4 Low LDL particle concentration (lipoprotein panel), risk categories correspond to NCEP categories for LDL cholesterol (on a percentile equivalent basis) 2167 nmol/L [facility] 732-2035 High cholesterol, non-HDL, total 245 MG/DL (CALC) [facility] <130 High cholesterol/HDL ratio, serum, percent 5.7 calc [facility] <5.0 High LDL cholesterol, serum 210 MG/DL (CALC) [facility] <100 High triglyceride, serum, fasting 176 mg/dL [facility] <150 High HDL cholesterol, serum 52 mg/dL [facility] >50 cholesterol, serum 297 mg/dL [facility] <200 High HISTORY OF MEDICATION USE Medication Status Instructions Dates Provider Indications Com ments atorvastatin 80 mg tablet active Take 1 tablet by mouth once daily Rafy Ferrer MD Ozempic 2 mg/dose (8 mg/3 mL) pen injector active INJECT 2 MG UNDER THE SKIN ONE DAY A WEEK Rafy Ferrer MD doxepin 25 mg capsule active 1 pill once daily at bedtime Naty Tony lisinopril 10 mg tablet active TAKE 1 Tablet BY MOUTH DAILY Rafy Ferrer MD prednisone 10 mg tablet active Natymontana Jimenez Humalog U-100 Insulin 100 unit/mL solution active pump Natymontana Jimenez clopidogrel 75 mg tablet active Take 1 tablet by mouth once a day Rafy Ferrer MD atorvastatin 80 mg tablet completed TAKE 1 TABLET BY MOUTH DAILY TO LOWER CHOLESTEROL - Susanhakan Kumar lisinopril 10 mg tablet completed Take 1 tablet by mouth once a day - Rafy Ferrer MD Ozempic 0.25 mg or 0.5 mg(2 mg/1.5 mL) pen injector completed INJECT 1 MG SUBCUTANEOUSLY ONCE A WEEK - Rafy Ferrer MD ezetimibe 10 mg tablet active TAKE 1 TABLET BY MOUTH DAILY TO LOWER CHOLESTEROL Rafy Ferrer MD potassium chloride 20 mEq tablet,ER particles/crystal s active TAKE 1 TABLET BY MOUTH ONCE A WEEK FOR POTASSIUM REPLACEMENT Rafy Ferrer MD furosemide 20 mg tablet active Take 1 tablet by mouth once a week Rafy Ferrer MD potassium chloride 20 mEq tablet,ER particles/crystal s completed take 1 tab three times a week - Shanice Mcclendon meclizine 25 mg tablet active Take 1 tablet once a day as needed Shanice Mcclendon ezetimibe 10 mg tablet completed Take 1 tablet by mouth once a day - Sallie Steiner atorvastatin 80 mg tablet completed Take 1 tablet by mouth once a day - Rafy Ferrer MD zolpidem 10 mg tablet completed Take 1 tablet every night as needed - Naty Jimenez lisinopril 20 mg tablet completed Take 1 tablet by mouth once a day - Farrah German tramadol 50 mg tablet active Take 1 tablet once a day 50 mg in the am ans 100 mg QHS Naty Jimenez DICLOFENAC SODIUM 75 MG ORAL TABLET DELAYED RELEASE completed Take 1 tablet daily - Shanice Mcclendon NightTime Sleep Aid (diphen) 50 mg capsule active Take 1 tablet every night as needed Shanice Mcclendon OMEGA-3 300 MG CAPS active Take 1 tablet once a day Shanice Mcclendon aspirin 81 mg tablet,chewable active Take once a day Rafy Ferrer MD furosemide 20 mg tablet completed Take 1 tablet daily - Rafy Ferrer MD clopidogrel 75 mg tablet completed Take 1 tablet by mouth once a day - Rafy Ferrer MD metformin 1,000 mg tablet,ER henrietta.retention 24 hr completed Take 1 tablet twice a day - Rafy Ferrer MD levothyroxine 137 mcg tablet active Take 1 tablet once a day Rafy Ferrer MD sucralfate 1 gram tablet completed Take 1 tablet twice a day - Naty Jimenez gabapentin 300 mg capsule active Take 3 capsules in am, take 3 caps in eveing, and 3 at bedtime Naty Jimenez SOCIAL HISTORY Date Observation Value Provider smoking status Never smoker Rafy conte MD smoking status Never smoker Rafy conte MD smoking status Never smoker Rafy conte MD social history E&M S moking History: P atient has never smoked. Rafy Ferrer MD smoking status Never smoker Rafy conte MD social history reviewed E&M revi ewed - no changes required Rafy Ferrer MD social history E&M S moking History: P athe has never smoked. Rafy Ferrer MD social history reviewed E&M revi ewed - no changes required Rafy Ferrer MD smoking status Never smoker Jelena Sams social history E&M S moking History: P athe has never smoked. Rafy Ferrer MD social history reviewed E&M revi ewed - no changes required Rafy Ferrer MD smoking status Never smoker Rafy conte MD social history E&M S moking History: P athe has never smoked. Bright Washburn smoking status Never smoker Bright Washburn social history reviewed E&M revi ewed - no changes required Bright Washburn social history E&M S moking History: P athe has never smoked. Bright Washburn social history reviewed E&M revi ewed - no changes required Bright Washburn smoking status Never smoker Yue Moody kailee social history E&M S moking History: P alison has never smoked. Rafy Ferrer MD social history reviewed E&M revi ewed - no changes required Rafy Ferrer MD smoking status Never smoker Dariinés Gar social history E&M S moking History: P athe has never smoked. Rafy Ferrer MD social history reviewed E&M revi ewed - no changes required Rafy Ferrer MD smoking status Never smoker Shanice valdez social history E&M S moking History: P athe has never smoked. Rafy Ferrer MD social history reviewed E&M revi ewed - no changes required Rafy Ferrer MD smoking status Never smoker Shanice valdez social history E&M S moking History: P alison has never smoked. Rafy Ferrer MD smoking status Never smoker Rafy conte MD social history reviewed E&M revi ewed - no changes required Rafy Ferrer MD social history E&M S moking History: P athe has never smoked. Rafy Ferrer MD social history reviewed E&M revi ewed - no changes required Rafy Ferrer MD smoking status Never smoker Shanice valdez number of grandchildren Rafy Ferrer MD social history E&M S moking History: P alison has never smoked. Rafy Ferrer MD social history reviewed E&M revi ewed - no changes required Rafy Ferrer MD smoking status Never smoker Karrie Patterson [facility] social history E&M S moking History: P alison has never smoked. Rafy Ferrer MD social history reviewed E&M revi ewed - no changes required Rafy Ferrer MD smoking status Never smoker Shanice Agustin valdez FUNCTIONAL STATUS Date Observation Value Provider HRA, CV Assess/Plan, Angina (inactive) Management Plan continue current therapy Rafy Ferrer MD HRA, CV Assess/Plan, Angina (inactive) Management Plan continue current therapy Rafy Ferrer MD HRA, CV Assess/Plan, Angina (inactive) Management Plan continue current therapy Rafy Ferrer MD HRA, CV Assess/Plan, Angina (inactive) Management Plan continue current therapy Rafy Ferrer MD HRA, CV Assess/Plan, Angina (inactive) Management Plan continue current therapy Rafy Ferrer MD HRA, CV Assess/Plan, Angina (inactive) Management Plan continue current therapy Rafy Ferrer MD HRA, CV Assess/Plan, Angina (inactive) Management Plan continue current therapy Rafy Ferrer MD HRA, CV Assess/Plan, Angina (inactive) Management Plan continue current therapy Bright Washburn HRA, CV Assess/Plan, Angina (inactive) Management Plan continue current therapy Yue Munoz HRA, CV Assess/Plan, Angina (inactive) Management Plan continue current therapy Rafy Ferrer MD HRA, CV Assess/Plan, Angina (inactive) Management Plan continue current therapy Rafy Ferrer MD HRA, CV Assess/Plan, Angina (inactive) Management Plan continue current therapy Rafy Ferrer MD HRA, CV Assess/Plan, Angina (inactive) Management Plan continue current therapy Rafy Ferrer MD HRA, CV Assess/Plan, Angina (inactive) Management Plan continue current therapy Rafy Ferrer MD HRA, CV Assess/Plan, Angina (inactive) Management Plan continue current therapy Rafy Ferrer MD HRA, CV Assess/Plan, Angina (inactive) Management Plan continue current therapy Rafy Ferrer MD FAMILY HISTORY Family Member Condition Father Family History of Co ronary Artery Disease: Father Family History of Di abetes: Mother Family History of Co ngestive Heart Failure: Mother Family History of Co ronary Artery Disease: Mother Family History of Hy pertension: Mother Family History of Hy perlipidemia: Mother Family History of Di abetes: Mother Family History of CV A or Stroke: INSURANCE PROVIDERS Payer name Policy type / Coverage type [facility] ID [place] MEDICA[place] Medicaid [id number] ADVANCE DIRECTIVES Name Date DISCUSSED - NO DECISION MADE TREATMENT PLAN Date Name Performer [id number],SRafy ra, MD [id number],SRafy ra, MD [id number],SRafy ra, MD [id number],Rafy Silverman ra, [place] [id number],B, H er updated medication list for this problem includes: Ezetimibe 10 Mg Tablet (Ezetimibe) ..... Take 1 tablet by mouth daily to lower cholesterol Atorvastatin 80 Mg Tablet (Atorvastatin) ..... Take 1 tablet by mouth daily to lower cholesterol Rafy Ferrer MD [id number],S, B P today: 132/85 P rior BP: 124/71 (01/03/2023) Her updated medication list for this problem includes: Furosemide 20 Mg Tablet (Furosemide) ..... Take 1 tablet by mouth once a week Aspirin 81 Mg Tablet,chewable (Aspirin) ..... Take once a day Rafy Ferrer MD [id number],S, H er updated medication list for this problem includes: Clopidogrel 75 Mg Tablet (Clopidogrel) ..... Take 1 tablet by mouth once a day Aspirin 81 Mg Tablet,chewable (Aspirin) ..... Take once a day Rafy Ferrer MD [id number],S, Rafy Brown ra, MD [id number],S, Rafy Brown ra, MD [id number],S, H er updated medication list for this problem includes: Ozempic 0.25 Mg Or 0.5 Mg(2 Mg/1.5 Ml) Pen Injector (Semaglutide) Aspirin 81 Mg Tablet,chewable (Aspirin) ..... Take once a day Rafy Ferrer MD [id number],S, H er updated medication list for this problem includes: Ezetimibe 10 Mg Tablet (Ezetimibe) ..... Take 1 tablet by mouth daily to lower cholesterol Atorvastatin 80 Mg Tablet (Atorvastatin) ..... Take 1 tablet by mouth daily to lower cholesterol Rafy Ferrer MD [id number],S, B P today: 124/71 P rior BP: 130/70 (11/22/2022) Her updated medication list for this problem includes: Furosemide 20 Mg Tablet (Furosemide) ..... Take 1 tablet by mouth once a week Aspirin 81 Mg Tablet,chewable (Aspirin) ..... Take once a day Rafy Ferrer MD [id number],S, H er updated medication list for this problem includes: Aspirin 81 Mg Tablet,chewable (Aspirin) ..... Take once a day Rafy Ferrer MD [id number],B, B P today: 130/70 P rior BP: 140/80 (06/01/2021) The following medications were removed from the medication list: Lisinopril 10 Mg Tablet (Lisinopril) ..... Take 1 tablet by mouth once a day Her updated medication list for this problem includes: Furosemide 20 Mg Tablet (Furosemide) ..... Take 1 tablet by mouth once a week Aspirin 81 Mg Tablet,chewable (Aspirin) ..... Take once a day Rafy Ferrer MD [id number],S, H er updated medication list for this problem includes: Lisinopril 10 Mg Tablet (Lisinopril) ..... Take 1 tablet by mouth once a day Aspirin 81 Mg Tablet,chewable (Aspirin) ..... Take once a day Rafy Ferrer MD [id number],SRafy ra, MD [id number],S, H er updated medication list for this problem includes: Ezetimibe 10 Mg Tablet (Ezetimibe) ..... Take 1 tablet by mouth daily to lower cholesterol Atorvastatin 80 Mg Tablet (Atorvastatin) ..... Take 1 tablet by mouth daily to lower cholesterol Rafy Ferrer MD [id number],S, Rafy Brown ra, MD [id number],S, Rafy Brown ra, MD [id number],S, H er updated medication list for this problem includes: Levothyroxine 175 Mcg Tablet (Levothyroxine) ..... Take 1 tablet once a day Rafy Ferrer MD [id number],S, H er updated medication list for this problem includes: Lisinopril 20 Mg Tablet (Lisinopril) ..... Take 1 tablet by mouth once a day take 1 tablet by mouth daily to lower blood pressure Ozempic 0.25 Mg Or 0.5 Mg(2 Mg/1.5 Ml) Pen Injector (Semaglutide) Aspirin 81 Mg Tablet,chewable (Aspirin) ..... Take once a day Rafy Ferrer MD [id number],B, Rafy Brown ra, MD [id number],S, H er updated medication list for this problem includes: Atorvastatin 80 Mg Tablet (Atorvastatin) ..... Take 1 tablet by mouth daily to lower cholesterol Ezetimibe 10 Mg Tablet (Ezetimibe) ..... Take 1 tablet by mouth daily to lower cholesterol Rafy Ferrer MD [id number],Yasmine Silverman BP: 140/80 (06/01/2021) Her updated medication list for this problem includes: Lisinopril 20 Mg Tablet (Lisinopril) ..... Take 1 tablet by mouth once a day take 1 tablet by mouth daily to lower blood pressure Aspirin 81 Mg Tablet,chewable (Aspirin) ..... Take once a day Furosemide 20 Mg Tablet (Furosemide) ..... Take 1 tablet by mouth every morning for fluid retention Rafy Ferrer MD [id number],S, H er updated medication list for this problem includes: Lisinopril 20 Mg Tablet (Lisinopril) ..... Take 1 tablet by mouth once a day take 1 tablet by mouth daily to lower blood pressure Aspirin 81 Mg Tablet,chewable (Aspirin) ..... Take once a day Rafy Ferrer MD [id number],S, H er updated medication list for this problem includes: Ezetimibe 10 Mg Tablet (Ezetimibe) ..... Take 1 tablet by mouth daily to lower cholesterol Atorvastatin 80 Mg Tablet (Atorvastatin) ..... Take 1 tablet by mouth once a day [facility] [id number],B, Bright [place]burn [id number],S, Bright [place]burn [id number],SBright [facility] [id number],B, H er updated medication list for this problem includes: Lisinopril 20 Mg Tablet (Lisinopril) ..... Take 1 tablet by mouth once a day Aspirin 81 Mg Tablet,chewable (Aspirin) ..... Take once a day Furosemide 20 Mg Tablet (Furosemide) ..... Take 1 tablet by mouth every morning for fluid retention [facility] [id number],S, H er updated medication list for this problem includes: Lisinopril 40 Mg Tablet (Lisinopril) ..... Take 1 tablet by mouth once a day Clopidogrel 75 Mg Tablet (Clopidogrel) ..... Take 1 tablet by mouth once a day Aspirin 81 Mg Tablet,chewable (Aspirin) ..... Take once a day [facility] [id number],S, H er updated medication list for this problem includes: Atorvastatin 80 Mg Tablet (Atorvastatin) ..... Take 1 tablet by mouth once a day Ezetimibe 10 Mg Tablet (Ezetimibe) ..... Take 1 tablet by mouth once a day [facility] [id number],S, H er updated medication list for this problem includes: Lisinopril 40 Mg Tablet (Lisinopril) ..... Take 1 tablet by mouth once a day Lisinopril 40 Mg Tablet (Lisinopril) ..... Take 1 tablet by mouth once a day Clopidogrel 75 Mg Tablet (Clopidogrel) ..... Take 1 tablet by mouth once a day Lisinopril 40 Mg Tablet (Lisinopril) ..... Take 1 tablet by mouth once a day Aspirin 81 Mg Tablet,chewable (Aspirin) ..... Take once a day [facility] [id number],S, H er updated medication list for this problem includes: Levothyroxine 200 Mcg Tablet (Levothyroxine) ..... Take 1 tablet once a day Yue Munoz [id number],S, B P today: 140/80 P rior BP: 163/75 (11/24/2020) Labs Reviewed: C reat: 0.81 (01/24/2020) C hol: 115 (10/25/2019) HDL: 51 (10/25/2019) Her updated medication list for this problem includes: Lisinopril 40 Mg Tablet (Lisinopril) ..... 1 tablet once a day Aspirin 81 Mg Tablet,chewable (Aspirin) ..... Take once a day Furosemide 20 Mg Tablet (Furosemide) ..... Take 1 tablet by mouth every morning for fluid retention [facility] [id number],S, Yuealina Guajardo [facility] [id number],S, H er updated medication list for this problem includes: Lisinopril 40 Mg Tablet (Lisinopril) ..... Take 1 tablet by mouth once a day Lisinopril 40 Mg Tablet (Lisinopril) ..... Take 1 tablet by mouth once a day Clopidogrel 75 Mg Tablet (Clopidogrel) ..... Take 1 tablet by mouth once a day Lisinopril 40 Mg Tablet (Lisinopril) ..... Take 1 tablet by mouth once a day Aspirin 81 Mg Tablet,chewable (Aspirin) ..... Take once a day [facility] [id number],S, Yue [facility] [id number],B, [facility] Card[facility]:This visi t has been a part of the consistent, comprehensive, and ongoing management of the chronic medical condition(s) listed above for the patient. BP today: 119/74 P rior BP: 136/90 (05/28/2024) Her updated medication list for this problem includes: Furosemide 20 Mg Tablet (Furosemide) ..... Take 1 tablet by mouth once a week Lisinopril 10 Mg Tablet (Lisinopril) ..... Take 1 tablet by mouth daily Aspirin 81 Mg Tablet,chewable (Aspirin) ..... Take once a day Rafy Ferrer MD Cardiology:This visi t has been a part of the consistent, comprehensive, and ongoing management of the chronic medical condition(s) listed above for the patient. H er updated medication list for this problem includes: Clopidogrel 75 Mg Tablet (Clopidogrel) ..... Take 1 tablet by mouth once a day Lisinopril 10 Mg Tablet (Lisinopril) ..... Take 1 tablet by mouth daily Aspirin 81 Mg Tablet,chewable (Aspirin) ..... Take once a day Rafy Ferrer MD Cardiology Rafy Tanner Cardiology:This visi t has been a part of the consistent, comprehensive, and ongoing management of the chronic medical condition(s) listed above for the patient. H er updated medication list for this problem includes: Atorvastatin 80 Mg Tablet (Atorvastatin) ..... Take one tablet by mouth daily at bedtime for cholesterol Ezetimibe 10 Mg Tablet (Ezetimibe) ..... Take 1 tablet by mouth daily to lower cholesterol Rafy Ferrer MD Cardiology Rafy Tanner Cardiology Rafy Tanner Cardiology Rafy Tanner Cardiology Rafy Tanner Cardiology Rafy Tanner Cardiology Rafy Tanner Cardiology:This visi t has been a part of the consistent, comprehensive, and ongoing management of the chronic medical condition(s) listed above for the patient. Her updated medication list for this problem includes: Ezetimibe 10 Mg Tablet (Ezetimibe) ..... Take 1 tablet by mouth daily to lower cholesterol Atorvastatin 80 Mg Tablet (Atorvastatin) ..... Take 1 tablet by mouth daily to lower cholesterol Rafy Ferrer MD Cardiology:This visi t has been a part of the consistent, comprehensive, and ongoing management of the chronic medical condition(s) listed above for the patient. BP today: 136/90 P rior BP: 99/86 (02/27/2024) Labs Reviewed: C reat: 0.81 (01/24/2020) C hol: 115 (10/25/2019) HDL: 51 (10/25/2019) LDL: 36 (10/25/2019) T (10/25/2019) Her updated medication list for this problem includes: Lisinopril 10 Mg Tablet (Lisinopril) ..... Take 1 tablet by mouth daily Furosemide 20 Mg Tablet (Furosemide) ..... Take 1 tablet by mouth once a week Aspirin 81 Mg Tablet,chewable (Aspirin) ..... Take once a day Rafy Ferrer MD Cardiology:This visi t has been a part of the consistent, comprehensive, and ongoing management of the chronic medical condition(s) listed above for the patient. H er updated medication list for this problem includes: Lisinopril 10 Mg Tablet (Lisinopril) ..... Take 1 tablet by mouth daily Clopidogrel 75 Mg Tablet (Clopidogrel) ..... Take 1 tablet by mouth once a day Aspirin 81 Mg Tablet,chewable (Aspirin) ..... Take once a day Rafy Ferrer MD Cardiology Rafy Tanner Cardiology Rafy Tanner Cardiology:This visi t has been a part of the consistent, comprehensive, and ongoing management of the chronic medical condition(s) listed above for the patient. BP today: 99/86 P rior BP: 122/70 (12/26/2023) Her updated medication list for this problem includes: Lisinopril 10 Mg Tablet (Lisinopril) ..... Take 1 tablet by mouth daily Furosemide 20 Mg Tablet (Furosemide) ..... Take 1 tablet by mouth once a week Aspirin 81 Mg Tablet,chewable (Aspirin) ..... Take once a day Rafy Ferrer MD Cardiology:This visi t has been a part of the consistent, comprehensive, and ongoing management of the chronic medical condition(s) listed above for the patient. Her updated medication list for this problem includes: Ezetimibe 10 Mg Tablet (Ezetimibe) ..... Take 1 tablet by mouth daily to lower cholesterol Atorvastatin 80 Mg Tablet (Atorvastatin) ..... Take 1 tablet by mouth daily to lower cholesterol Rafy Ferrer MD Cardiology Rafy Tanner Cardiology: T he risks and benefits of the procedure, including but not limited the risk of heart attack, , stroke, bleeding, kidney failure, and loss of limb as well as the alternative of continued medical therapy, stress testing or bypass surgery were discussed with the patient and any present family members and the patient wishes to proceed with cardiac cath and stenting. The patient and family had opportunity to discuss this with us. Written material including informed consent was given out. Her updated medication list for this problem includes: Lisinopril 10 Mg Tablet (Lisinopril) ..... Take 1 tablet by mouth daily Clopidogrel 75 Mg Tablet (Clopidogrel) ..... Take 1 tablet by mouth once a day Aspirin 81 Mg Tablet,chewable (Aspirin) ..... Take once a day Rafy Ferrer MD Cardiology Rafy Tanner Cardiology: H er updated medication list for this problem includes: Ozempic 0.25 Mg Or 0.5 Mg(2 Mg/1.5 Ml) Pen Injector (Semaglutide) Aspirin 81 Mg Tablet,chewable (Aspirin) ..... Take once a day Rafy Ferrer MD Cardiology: B P today: 122/70 P rior BP: 132/85 (06/06/2023) Labs Reviewed: C reat: 0.81 (01/24/2020) C hol: 115 (10/25/2019) HDL: 51 (10/25/2019) LDL: 36 (10/25/2019) T (10/25/2019) Her updated medication list for this problem includes: Furosemide 20 Mg Tablet (Furosemide) ..... Take 1 tablet by mouth once a week Aspirin 81 Mg Tablet,chewable (Aspirin) ..... Take once a day Rafy Ferrer MD Cardiology: H er updated medication list for this problem includes: Clopidogrel 75 Mg Tablet (Clopidogrel) ..... Take 1 tablet by mouth once a day Aspirin 81 Mg Tablet,chewable (Aspirin) ..... Take once a day Rafy Ferrer MD Cardiology: Will rec ommend [employer] device. (This patient has developed significant bilateral lower extremity swelling. The patient cannot tolerate compression hose despite repeated attempts to use them. She has been elevating her feet at night to reduce swelling with minimal improvement. 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 Take 1 tablet by mouth daily to lower cholesterol Atorvastatin 80 Mg Tablet (Atorvastatin) ..... Take 1 tablet by mouth daily to lower cholesterol Rafy Ferrer MD Cardiology Rafy Tanner Cardiology Rafy Tanner Cardiology Rafy Tanner Cardiology Rafy Tanner Cardiology Rafy Tanner Cardiology Rafy Tanner Cardiology: H er updated medication list for this problem includes: Ezetimibe 10 Mg Tablet (Ezetimibe) ..... Take 1 tablet by mouth daily to lower cholesterol Atorvastatin 80 Mg Tablet (Atorvastatin) ..... Take 1 tablet by mouth daily to lower cholesterol Rafy Ferrer MD Cardiology: B P today: 132/85 P rior BP: 124/71 (01/03/2023) Her updated medication list for this problem includes: Furosemide 20 Mg Tablet (Furosemide) ..... Take 1 tablet by mouth once a week Aspirin 81 Mg Tablet,chewable (Aspirin) ..... Take once a day Rafy Ferrer MD Cardiology: H er updated medication list for this problem includes: Clopidogrel 75 Mg Tablet (Clopidogrel) ..... Take 1 tablet by mouth once a day Aspirin 81 Mg Tablet,chewable (Aspirin) ..... Take once a day Rafy Ferrer MD Cardiology Rafy Tanner Cardiology Rafy Tanner Cardiology: H er updated medication list for this problem includes: Ozempic 0.25 Mg Or 0.5 Mg(2 Mg/1.5 Ml) Pen Injector (Semaglutide) Aspirin 81 Mg Tablet,chewable (Aspirin) ..... Take once a day Rafy Ferrer MD Cardiology: H er updated medication list for this problem includes: Ezetimibe 10 Mg Tablet (Ezetimibe) ..... Take 1 tablet by mouth daily to lower cholesterol Atorvastatin 80 Mg Tablet (Atorvastatin) ..... Take 1 tablet by mouth daily to lower cholesterol Rafy Ferrer MD Cardiology: B P today: 124/71 P rior BP: 130/70 (11/22/2022) Her updated medication list for this problem includes: Furosemide 20 Mg Tablet (Furosemide) ..... Take 1 tablet by mouth once a week Aspirin 81 Mg Tablet,chewable (Aspirin) ..... Take once a day Rafy Ferrer MD Cardiology: H er updated medication list for this problem includes: Aspirin 81 Mg Tablet,chewable (Aspirin) ..... Take once a day Rafy Ferrer MD Cardiology: B P today: 130/70 P rior BP: 140/80 (06/01/2021) The following medications were removed from the medication list: Lisinopril 10 Mg Tablet (Lisinopril) ..... Take 1 tablet by mouth once a day Her updated medication list for this problem includes: Furosemide 20 Mg Tablet (Furosemide) ..... Take 1 tablet by mouth once a week Aspirin 81 Mg Tablet,chewable (Aspirin) ..... Take once a day Rafy Ferrer MD Cardiology: H er updated medication list for this problem includes: Lisinopril 10 Mg Tablet (Lisinopril) ..... Take 1 tablet by mouth once a day Aspirin 81 Mg Tablet,chewable (Aspirin) ..... Take once a day Rafy Ferrer MD Cardiology Rafy Tanner Cardiology: H er updated medication list for this problem includes: Ezetimibe 10 Mg Tablet (Ezetimibe) ..... Take 1 tablet by mouth daily to lower cholesterol Atorvastatin 80 Mg Tablet (Atorvastatin) ..... Take 1 tablet by mouth daily to lower cholesterol Rafy Ferrer MD Cardiology Rafy Tanner Cardiology Rafy Tanner [facility], 6 month fu: H er updated medication list for this problem includes: Levothyroxine 175 Mcg Tablet (Levothyroxine) ..... Take 1 tablet once a day Rafy Ferrer MD Telehealth, 6 month fu: H er updated medication list for this problem includes: Lisinopril 20 Mg Tablet (Lisinopril) ..... Take 1 tablet by mouth once a day take 1 tablet by mouth daily to lower blood pressure Ozempic 0.25 Mg Or 0.5 Mg(2 Mg/1.5 Ml) Pen Injector (Semaglutide) Aspirin 81 Mg Tablet,chewable (Aspirin) ..... Take once a day Rafy Ferrer MD Telehealth, 6 month fu Rafy lopez MD Tele[facility], 6 month fu: H er updated medication list for this problem includes: Atorvastatin 80 Mg Tablet (Atorvastatin) ..... Take 1 tablet by mouth daily to lower cholesterol Ezetimibe 10 Mg Tablet (Ezetimibe) ..... Take 1 tablet by mouth daily to lower cholesterol Rafy Ferrer MD Telehealth, 6 month fu: Yasmine matamorosr BP: 140/80 (06/01/2021) Her updated medication list for this problem includes: Lisinopril 20 Mg Tablet (Lisinopril) ..... Take 1 tablet by mouth once a day take 1 tablet by mouth daily to lower blood pressure Aspirin 81 Mg Tablet,chewable (Aspirin) ..... Take once a day Furosemide 20 Mg Tablet (Furosemide) ..... Take 1 tablet by mouth every morning for fluid retention Rafy Ferrer MD [facility], 6 month fu: H er updated medication list for this problem includes: Lisinopril 20 Mg Tablet (Lisinopril) ..... Take 1 tablet by mouth once a day take 1 tablet by mouth daily to lower blood pressure Aspirin 81 Mg Tablet,chewable (Aspirin) ..... Take once a day Rafy Ferrer MD [facility], 6 month fu: H er updated medication list for this problem includes: Ezetimibe 10 Mg Tablet (Ezetimibe) ..... Take 1 tablet by mouth daily to lower cholesterol Atorvastatin 80 Mg Tablet (Atorvastatin) ..... Take 1 tablet by mouth once a day [facility], 6 month fu [facility], 6 month fu [facility], 6 month fu: H er updated medication list for this problem includes: Lisinopril 20 Mg Tablet (Lisinopril) ..... Take 1 tablet by mouth once a day Aspirin 81 Mg Tablet,chewable (Aspirin) ..... Take once a day Furosemide 20 Mg Tablet (Furosemide) ..... Take 1 tablet by mouth every morning for fluid retention [facility], 6 month fu: H er updated medication list for this problem includes: Lisinopril 40 Mg Tablet (Lisinopril) ..... Take 1 tablet by mouth once a day Clopidogrel 75 Mg Tablet (Clopidogrel) ..... Take 1 tablet by mouth once a day Aspirin 81 Mg Tablet,chewable (Aspirin) ..... Take once a day [facility] Cardiology follow up : H er updated medication list for this problem includes: Atorvastatin 80 Mg Tablet (Atorvastatin) ..... Take 1 tablet by mouth once a day Ezetimibe 10 Mg Tablet (Ezetimibe) ..... Take 1 tablet by mouth once a day [facility] Cardiology follow up : H er updated medication list for this problem includes: Lisinopril 40 Mg Tablet (Lisinopril) ..... Take 1 tablet by mouth once a day Lisinopril 40 Mg Tablet (Lisinopril) ..... Take 1 tablet by mouth once a day Clopidogrel 75 Mg Tablet (Clopidogrel) ..... Take 1 tablet by mouth once a day Lisinopril 40 Mg Tablet (Lisinopril) ..... Take 1 tablet by mouth once a day Aspirin 81 Mg Tablet,chewable (Aspirin) ..... Take once a day [facility] Cardiology follow up : H er updated medication list for this problem includes: Levothyroxine 200 Mcg Tablet (Levothyroxine) ..... Take 1 tablet once a day Yue [place] [facility] follow up : B P today: 140/80 P rior BP: 163/75 (11/24/2020) Labs Reviewed: C reat: 0.81 (01/24/2020) C hol: 115 (10/25/2019) HDL: 51 (10/25/2019) Her updated medication list for this problem includes: Lisinopril 40 Mg Tablet (Lisinopril) ..... 1 tablet once a day Aspirin 81 Mg Tablet,chewable (Aspirin) ..... Take once a day Furosemide 20 Mg Tablet (Furosemide) ..... Take 1 tablet by mouth every morning for fluid retention [facility] Cardiology follow up [facility] Cardiology follow up : H er updated medication list for this problem includes: Lisinopril 40 Mg Tablet (Lisinopril) ..... Take 1 tablet by mouth once a day Lisinopril 40 Mg Tablet (Lisinopril) ..... Take 1 tablet by mouth once a day Clopidogrel 75 Mg Tablet (Clopidogrel) ..... Take 1 tablet by mouth once a day Lisinopril 40 Mg Tablet (Lisinopril) ..... Take 1 tablet by mouth once a day Aspirin 81 Mg Tablet,chewable (Aspirin) ..... Take once a day [facility] Cardiology follow up [facility] Cardiology follow up [facility] Cardiology Rafy Tanner Cardiology: H er updated medication list for this problem includes: Lisinopril 40 Mg Oral Tablet (Lisinopril) ..... One tab. daily Aspirin Adult Low Strength 81 Mg Oral Tablet Chewable (Aspirin) ..... Take 1 daily Metformin Hcl Er (mod) 1000 Mg Oral Tablet Extended Release 24 Hour (Metformin hcl) ..... Take 1 tablet twice daily Rafy Ferrer MD Cardiology: H er updated medication list for this problem includes: Ezetimibe 10 Mg Tablet (Ezetimibe) ..... Take 1 tablet by mouth daily to lower cholesterol Atorvastatin Calcium 80 Mg Oral Tablet (Atorvastatin calcium) ..... One tab daily Rafy Ferrer MD Cardiology: B P today: 163/75 P rior BP: 171/82 (08/25/2020) Her updated medication list for this problem includes: Lisinopril 40 Mg Oral Tablet (Lisinopril) ..... One tab. daily Aspirin Adult Low Strength 81 Mg Oral Tablet Chewable (Aspirin) ..... Take 1 daily Furosemide 20 Mg Oral Tablet (Furosemide) ..... Take 1 tablet daily Rafy Ferrer MD Cardiology: H er updated medication list for this problem includes: Lisinopril 40 Mg Oral Tablet (Lisinopril) ..... One tab. daily Aspirin Adult Low Strength 81 Mg Oral Tablet Chewable (Aspirin) ..... Take 1 daily Clopidogrel Bisulfate 75 Mg Oral Tablet (Clopidogrel bisulfate) ..... Take 1 tablet daily Rafy Ferrer MD Cardiology Rafy Tanner Cardiology Rafy Tanner Cardiology follow up : u p 13 lbs. Rafy Ferrer MD Cardiology follow up : l ast a1c 8.5%. Her updated medication list for this problem includes: Lisinopril 10 Mg Oral Tablet (Lisinopril) ..... One tab daily Aspirin Adult Low Strength 81 Mg Oral Tablet Chewable (Aspirin) ..... Take 1 daily Metformin Hcl Er (mod) 1000 Mg Oral Tablet Extended Release 24 Hour (Metformin hcl) ..... Take 1 tablet twice daily Rafy Ferrer MD Cardiology follow up : c ricardo Ferrer MD Cardiology follow up : L DL 36, TG 141: 10/2019 Her updated medication list for this problem includes: Ezetimibe 10 Mg Tablet (Ezetimibe) ..... Take 1 tablet by mouth daily to lower cholesterol Atorvastatin Calcium 80 Mg Oral Tablet (Atorvastatin calcium) ..... One tab daily Rafy Ferrer MD Cardiology follow up : B P today: 171/82 P rior BP: 128/78 (02/04/2020) Her updated medication list for this problem includes: Lisinopril 20 Mg Oral Tablet (Lisinopril) ..... One tab. daily Aspirin Adult Low Strength 81 Mg Oral Tablet Chewable (Aspirin) ..... Take 1 daily Furosemide 20 Mg Oral Tablet (Furosemide) ..... Take 1 tablet daily Rafy Ferrer MD Cardiology follow up : H er updated medication list for this problem includes: Lisinopril 20 Mg Oral Tablet (Lisinopril) ..... One tab. daily Aspirin Adult Low Strength 81 Mg Oral Tablet Chewable (Aspirin) ..... Take 1 daily Clopidogrel Bisulfate 75 Mg Oral Tablet (Clopidogrel bisulfate) ..... Take 1 tablet daily Rafy Ferrer MD Cardiology follow up Rafy douglas MD Cardiology follow up : H er updated medication list for this problem includes: Lisinopril 10 Mg Oral Tablet (Lisinopril) ..... One tab daily Aspirin Adult Low Strength 81 Mg Oral Tablet Chewable (Aspirin) ..... Take 1 daily Metformin Hcl Er (mod) 1000 Mg Oral Tablet Extended Release 24 Hour (Metformin hcl) ..... Take 1 tablet twice daily Rafy Ferrer MD Cardiology follow up : H er updated medication list for this problem includes: Ezetimibe 10 Mg Oral Tablet (Ezetimibe) ..... One tab daily Atorvastatin Calcium 80 Mg Oral Tablet (Atorvastatin calcium) ..... One tab daily Rafy eFrrer MD Cardiology follow up : B P today: 128/78 P rior BP: 140/64 (12/25/2019) Her updated medication list for this problem includes: Lisinopril 10 Mg Oral Tablet (Lisinopril) ..... One tab daily Aspirin Adult Low Strength 81 Mg Oral Tablet Chewable (Aspirin) ..... Take 1 daily Furosemide 20 Mg Oral Tablet (Furosemide) ..... Take 1 tablet daily Rafy Ferrer MD Cardiology follow up Rafy douglas MD Cardiology follow up : c ricardo intoelrant Rafy Ferrer MD Cardiology follow up Rafy douglas MD Cardiology follow up : H er updated medication list for this problem includes: Lisinopril 10 Mg Oral Tablet (Lisinopril) ..... One tab daily Aspirin Adult Low Strength 81 Mg Oral Tablet Chewable (Aspirin) ..... Take 1 daily Clopidogrel Bisulfate 75 Mg Oral Tablet (Clopidogrel bisulfate) ..... Take 1 tablet daily Rafy Ferrer MD TeleHealth, 3 month tele f/u. Rubin Ferrer MD TeleHealth, 3 month tele f/u.: r esolved since PCI in 08/2019 Rafy Ferrer MD TeleHealth, 3 month tele f/u.: T he patient is using AUTOPAP on a regular basis. The patient has been benefiting from therapy and should continue use. Rafy Ferrer MD TeleHealth, 3 month tele f/u. Rubin Ferrer MD TeleHealth, 3 month tele f/u.: H er updated medication list for this problem includes: Ezetimibe 10 Mg Oral Tablet (Ezetimibe) ..... One tab daily Atorvastatin Calcium 80 Mg Oral Tablet (Atorvastatin calcium) ..... One tab daily Rafy Ferrer MD TeleHealth, 3 month tele f/u.: B P today: 121/72 P rior BP: 132/70 (07/30/2019) H er updated medication list for this problem includes: Lisinopril 10 Mg Oral Tablet (Lisinopril) ..... One tab daily Aspirin Adult Low Strength 81 Mg Oral Tablet Chewable (Aspirin) ..... Take 1 daily Furosemide 20 Mg Oral Tablet (Furosemide) ..... Take 1 tablet daily Rafy Ferrer MD TeleHealth, 3 month tele f/u.: H er updated medication list for this problem includes: Lisinopril 10 Mg Oral Tablet (Lisinopril) ..... One tab daily Aspirin Adult Low Strength 81 Mg Oral Tablet Chewable (Aspirin) ..... Take 1 daily Clopidogrel Bisulfate 75 Mg Oral Tablet (Clopidogrel bisulfate) ..... Take 1 tablet daily Rafy Ferrer MD Cardiology follow up : mc be >10. recommend turmerpayton Ferrer MD Cardiology follow up : roya castro home sleep study Rafy Ferrer MD Cardiology follow up : yasmine nicci horne prevents use of support hose. denies ulcers/sores Rafy Ferrer MD Cardiology follow up Rafy douglas MD Cardiology follow up Rafy douglas MD Cardiology follow up : A 1c 8.0 Her updated medication list for this problem includes: Lisinopril 10 Mg Oral Tablet (Lisinopril) ..... One tab daily Aspirin Adult Low Strength 81 Mg Oral Tablet Chewable (Aspirin) ..... Take 1 daily Metformin Hcl Er (mod) 1000 Mg Oral Tablet Extended Release 24 Hour (Metformin hcl) ..... Take 1 tablet twice daily Rafy Ferrer MD Cardiology follow up : Roya garcia IQ 01/2019: CHOL 297, TG 176, HDL 52, LDL 210, LDLp 2167, small LDL 457, APOB 153, Lp(a) 23, hsCRP >10, Lppla2 103. r esults indicate she has familial hypercholesterolemia. pt has significant risk for future CV event s tart lipitor 80mg daily and zetia Her updated medication list for this problem includes: Ezetimibe 10 Mg Oral Tablet (Ezetimibe) ..... One tab daily Atorvastatin Calcium 80 Mg Oral Tablet (Atorvastatin calcium) ..... One tab daily Rafy Ferrer MD Cardiology follow up Rafy douglas MD Cardiology follow up : B P today: 132/70 P rior BP: 137/70 (01/22/2019) Her updated medication list for this problem includes: Lisinopril 10 Mg Oral Tablet (Lisinopril) ..... One tab daily Aspirin Adult Low Strength 81 Mg Oral Tablet Chewable (Aspirin) ..... Take 1 daily Furosemide 20 Mg Oral Tablet (Furosemide) ..... Take 1 tablet daily Rafy Ferrer MD Cardiology follow up : u nremarkable stress test 12/2018 E F 60% per echo. Her updated medication list for this problem includes: Lisinopril 10 Mg Oral Tablet (Lisinopril) ..... One tab daily Aspirin Adult Low Strength 81 Mg Oral Tablet Chewable (Aspirin) ..... Take 1 daily Clopidogrel Bisulfate 75 Mg Oral Tablet (Clopidogrel bisulfate) ..... Take 1 tablet daily Rafy Ferrer MD Cardiology: n ormal stress test, echo Rafy Ferrer MD Cardiology: B P today: 137/70 P rior BP: 138/70 (01/01/2019) Her updated medication list for this problem includes: Lisinopril 10 Mg Oral Tablet (Lisinopril) ..... One tab daily Aspirin Adult Low Strength 81 Mg Oral Tablet Chewable (Aspirin) ..... Take 1 daily Furosemide 20 Mg Oral Tablet (Furosemide) ..... Take 1 tablet daily Rafy Ferrer MD Cardiology: n ormal JAYLAN BLE study Rafy Ferrer MD Cardiology: b ilaterally. will give Rx for support hose. p t works in hot, non air conditioned environment. encouraged to wear them as much as possiblr Rafy Ferrer MD Cardiology: n ormal stress test E F 60% per echo. Her updated medication list for this problem includes: Lisinopril 10 Mg Oral Tablet (Lisinopril) ..... One tab daily Aspirin Adult Low Strength 81 Mg Oral Tablet Chewable (Aspirin) ..... Take 1 daily Clopidogrel Bisulfate 75 Mg Oral Tablet (Clopidogrel bisulfate) ..... Take 1 tablet daily Rafy Ferrer MD Cardiology New Patie nt : s ignificant family hx. Rafy Ferrer MD Cardiology New Patie nt : roya castro venous dopplers to evalaute for DVT and Rafy Ferrer MD Cardiology New Patie nt : ' burning' sensation from thighs through to calves on ambulation. check JAYLAN Rafy Ferrer MD Cardiology New Patie nt : w carmel going up stairs roya castro echo and stress test Rafy Ferrer MD Cardiology New Patie nt : roya hekc A1c. r ecent A1c 7.6 a month ago. Her updated medication list for this problem includes: Lisinopril 10 Mg Oral Tablet (Lisinopril) ..... One tab daily Aspirin Adult Low Strength 81 Mg Oral Tablet Chewable (Aspirin) ..... Take 1 daily Metformin Hcl Er (mod) 1000 Mg Oral Tablet Extended Release 24 Hour (Metformin hcl) ..... Take 1 tablet twice daily Rafy Ferrer MD Cardiology New Patie nt : o nset usually corresponds with stress roya castro ischemic evaluation Rafy Ferrer MD Cardiology New Patie nt : roya castro TSH w/r/t T4 Rafy Ferrer MD Cardiology New Patie nt : roya castro cardio IQ p t ran out of lipitor recently. will likely restart it at appropraite dose after results of labs come in Rafy Ferrer MD Cardiology New Patie nt : i ncrease lisinopril to 10mg daily. BP today: 138/70 Her updated medication list for this problem includes: Lisinopril 10 Mg Oral Tablet (Lisinopril) ..... One tab daily Aspirin Adult Low Strength 81 Mg Oral Tablet Chewable (Aspirin) ..... Take 1 daily Furosemide 20 Mg Oral Tablet (Furosemide) ..... Take 1 tablet daily Rafy Ferrer MD Cardiology New Patie nt : 2 prior stents 3-5 yers ago r equest records from [facility] ignificant stress induces chest pain Her updated medication list for this problem includes: Lisinopril 10 Mg Oral Tablet (Lisinopril) ..... One tab daily Aspirin Adult Low Strength 81 Mg Oral Tablet Chewable (Aspirin) ..... Take 1 daily Clopidogrel Bisulfate 75 Mg Oral Tablet (Clopidogrel bisulfate) ..... Take 1 tablet daily Rafy Ferrer MD Date Name COMPREHENSIVE METABO LIC PANEL, W/EGFR PROTHROMBIN TIME WIT H INR LIPID PANEL CBC (INCLUDES DIFF/P LT) Stress Cardiac PET-C T Arterial Duplex Bi-L ower EX Venous Doppler Bilat eral LE Venous Doppler Bilat eral LE - Reflux Stress Cardiac PET-C T Complete Echo TSH, free T4, total T3 IRON AND TOTAL IRON BINDING CAPACITY FERRITIN CBC (INCLUDES DIFF/P LT) HEMOGLOBIN A1c LIPID PANEL Complete Echo BASIC METABOLIC PANE L W/EGFR IRON AND TOTAL IRON BINDING CAPACITY FERRITIN CBC (INCLUDES DIFF/P LT) TSH, free T4, total T3 HEMOGLOBIN A1c LIPID PANEL TSH, free T4, total T3 LIPID PANEL HEMOGLOBIN A1c CBC (H/H, RBC, INDIC ES, WBC, PLT) BASIC METABOLIC PANE L W/EGFR IRON AND TOTAL IRON BINDING CAPACITY FERRITIN CBC (INCLUDES DIFF/P LT) IRON AND TOTAL IRON BINDING CAPACITY FERRITIN PROTHROMBIN TIME WIT H INR LIPID PANEL CBC (INCLUDES DIFF/P LT) BASIC METABOLIC PANE L W/EGFR TSH, 3RD GENERATION W/REFLEX TO FT4 C-REACTIVE PROTEIN ( CRP), HIGHLY SENSITIVE, CSF LIPID PANEL Sleep Study Home TSH, 3RD GENERATION W/REFLEX TO FT4 HEMOGLOBIN A1c CBC (H/H, RBC, INDIC ES, WBC, PLT) BASIC METABOLIC PANE L W/EGFR D-DIMER, QUANTITATIV E CardioIQ Advanced Li pid Panel with Inflammation ([facility]) TSH, 3RD GENERATION W/REFLEX TO FT4 CBC (H/H, RBC, INDIC ES, WBC, PLT) BASIC METABOLIC PANE L W/EGFR PROBNP, N TERMINAL D-DIMER, QUANTITATIV E HEMOGLOBIN A1c CardioIQ Advanced Li pid Panel with Inflammation ([facility]) Venous Doppler Bilat eral LE Venous Doppler Bilat eral LE - Reflux Arterial Duplex Bi-L ower EX Stress Exercise Card iolite Complete Echo HISTORY OF PROCEDURES Procedure Date Procedure Name Provider Procedure Notes S tatus Complex e/m visit add on Rafy Ferrer MD completed Complex e/m visit add on Rafy Ferrer MD completed Complex e/m visit add on Rafy Ferrer MD completed EKG Rafy Ferrer MD complet ed EKG Rafy Ferrer MD complet ed EKG Rafy Ferrer MD complet ed Injectafer 750mg Rafy Ferrer MD c ompleted Therapeutic IV Infus ion up to 1 hour Rafy Ferrer MD completed Injectafer 750mg Rafy Ferrer MD c ompleted Therapeutic IV Infus ion up to 1 hour Rafy Ferrer MD completed Cardiolite, 2 units Rafy Ferrer MD completed SPECT Images Rafy Ferrer MD compl eted Stress EKG Rafy Ferrer MD complet ed EKG Rafy Ferrer MD complet ed
--- OUTSIDE RECORDS SUMMARY | 2024-12-16 10:01 | XMS_ITS | Encounter Summary ---
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 us Historical Provider Final Res ult documented in this encounter Visit Diagnoses Not on filedocumented in this encounter Care Teams Prior Authorization Nurse Relationship Specialty Start Date End Date David Yuen MD [address] [address] PCP - General 03/12/20 documented as of this encounter
--- OUTSIDE RECORDS SUMMARY | 2024-12-16 10:01 | XMS_ITS | Referral Summary ---
Author Organization [facility] [address] [place] [phone] Care Team Providers Care Catalytic Converter Operator Helper Name Role Phone David Yuen MD Primary Care Provider [phone] Allergies Active Allergy Reactions Criticality Noted Date [...] 06/25 Assessment & Plan (07/13/2023 4:09 PM ASSEMBLY MECHANIC): Hba1c was Lab Results Component Value Date [...] 07/13/2023 Assessment & Plan (07/13/2023 4:10 PM ASSEMBLY MECHANIC): Update TSH and free T4 Update TG level Continue levothyroxine, will adjust dose, if indicated as per labs above Social History Tobacco Use Types Packs/Day Years [...] on file Legal Sex Female 7:00 AM ASSEMBLY MECHANIC Gender Identity Not on file Sexual Orientation Not on file Last Filed Vital Signs Vital Sign Reading Time Taken Comments Blood Pressure 120/70 07/13/2023 1:51 PM ASSEMBLY MECHANIC Pulse 81 07/13/2023 1:51 PM ASSEMBLY MECHANIC Temperature 36.6 C (97.8 F) 07/01/2017 3:02 PM ASSEMBLY MECHANIC Respiratory Rate 18 07/13/2023 1:51 PM ASSEMBLY MECHANIC Oxygen Saturation 99% 07/01/2017 3:02 PM ASSEMBLY MECHANIC Inhaled Oxygen Concentration - - Weight 117.7 kg (259 lb 6.4 oz) 07/13/2023 1:51 PM ASSEMBLY MECHANIC Height 170.2 cm (5' 7 ) 07/13/2023 1:51 PM ASSEMBLY MECHANIC Body Mass Index 40.63 07/13/2023 1:51 PM ASSEMBLY MECHANIC Plan of Treatment Not on file Procedures Procedure Name Priority Date/Time Associated Diagnosis Comments EGFR Routine 07/13/2023 3:02 PM ASSEMBLY MECHANIC Postoperative hypothyroidism LIPID PANEL Routine 07/13/2023 3:02 PM ASSEMBLY MECHANIC Type 1 diabetes mellitus with hyperglycemia (HCC) TSH Routine 07/13/2023 3:02 PM ASSEMBLY MECHANIC Postoperative hypothyroidism POCT HEMOGLOBIN A1C Routine 07/13/2023 1 :51 PM ASSEMBLY MECHANIC Type 1 diabetes mellitus with hyperglycemia (HCC) OCCULT BLOOD, FECAL (FIT) Routine 12/30/2015 5:10 PM CDT SCREENING MAMMOGRAM BILATERAL W LYNNETTE Routine 06/24/2015 7:26 AM ASSEMBLY MECHANIC from Last 3 Months or Most Recently Relevant to Health Maintenance Results * eGFR (07/13/2023 3:02 PM ASSEMBLY MECHANIC) eGFR 71 mL/min/1. 73 m2 MANE KEARNEY [...] last reviewed 2021. Blood 07/13/2023 3:02 PM ASSEMBLY MECHANIC 07/13/2023 7:52 PM ASSEMBLY MECHANIC us Miguel Ángel Darnell MD LAB BLOOD ORDERABLES Final Resul t Performing Organization Address City/[facility] Co de Phone Number MANE [address] [address] [facility] [place] [place] [address] * TSH (07/13/2023 3:02 PM ASSEMBLY MECHANIC) Thyroid Stimulating Hormone 0.70 0.30 - 4.20 mcIUnit/mL [facility] Blood 07/13/2023 3:02 PM ASSEMBLY MECHANIC 07/13/2023 7:06 PM ASSEMBLY MECHANIC us Miguel Ángel Darnell MD LAB BLOOD ORDERABLES Final Resul t Performing Organization Address [facility] de Phone Number [facility] [address] [address] [place] [address] * (ABNORMAL) Lipid panel (07/13/2023 3:02 PM ASSEMBLY MECHANIC) Cholesterol 111 30 - 199 mg/dL MANE [...] revised on 2018. Chol/HDL ratio 3 MANE Blood 07/13/2023 3:02 PM ASSEMBLY MECHANIC 07/13/2023 7:06 PM ASSEMBLY MECHANIC Miguel Ángel Darnell MD LAB BLOOD ORDERABLES Final Resul t MANE KEARNEY [address] [address] Department [place] [address] * (ABNORMAL) POCT hemoglobin A1c (07/13/2023 1:51 PM ASSEMBLY MECHANIC) Hemoglobin A1C, POC 6.5 % Blood spot 07/13/2023 1:51 PM ASSEMBLY MECHANIC Miguel Ángel Darnell MD POINT OF CARE TEST ORDERABLES Fi nal Result * Occult blood, fecal non neoplasm screening (12/30/2015 5:10 PM CDT) Stool Occult Blood NEGATIVE NEGATIVE 12/30/2015 5:10 PM CDT 12/30/2015 5:41 PM CDT Narrative [facility] HISTORICAL RESULTS - 12/30/2015 8:43 PM CDT Collected By FB us Karrie Polanco NP LAB BODY FLUIDS AND STOOLS O RDERABLES Final Result Performing Organization Address City/[facility]/ZIP Co de Phone Number [facility] HISTORICAL RESULTS * Screening Mammogram Bilateral W Lynnette (06/24/2015 7:26 AM ASSEMBLY MECHANIC) Anatomical Region Laterality Modality Breast Bilateral Mammography 06/24/2015 7:26 AM ASSEMBLY MECHANIC Impressions 06/24/2015 10:54 AM ASSEMBLY MECHANIC BI-RAD 1 NEGATIVE There is no mammographic evidence of malignancy. A 1 year screening mammogram is recommended. The patient has been or will be contacted. The patient will be entered into an automated reminder system to schedule a mammogram in one year. Electronically signed by: Dr. Kt whittaker/esteban:06/24/2015 10:52:58 Manager Culinary: Zoya MURPHY(R)(M), [facility] letter sent: Normal Exam Reading location: BI-RADS: 1 Negative [EOD] Narrative 06/24/2015 10:54 AM ASSEMBLY MECHANIC - [facility] BILAT SCREENING 3D W/CAD BILATERAL DIGITAL SCREENING [...] dated: 04/30/2014 mammogram and 12/14/2011 mammogram - [facility]. BREAST TISSUE: The tissue of both breasts is almost entirely fatty. FINDINGS: No significant masses, calcifications, or other findings are seen in either breast. There has been no significant interval change. Procedure Note Provider, MD Ana M - 12/08/2020 - [facility] BILAT SCREENING 3D W/CAD BILATERAL DIGITAL SCREENING [...] dated: 04/30/2014 mammogram and 12/14/2011 mammogram - [facility]. BREAST TISSUE: The tissue of both breasts [...] year. Electronically signed by: Dr. Kt Torres nh/penrad:06/24/2015 10:52:58 Manager Culinary: Zoya MURPHY(R)(M), [facility] letter sent: Normal Exam Reading location: BI-RADS: 1 Negative [EOD] us Kody Gabriel MD IMG MAMMO PROCEDURES Final Result from Last 3 Months or Most Recently Relevant to Health Maintenance Care Teams Catalytic Converter Operator Helper Relationship Specialty Start Date End Date David Yuen MD [address] [address] PCP - General 03/12/20
--- OUTSIDE RECORDS SUMMARY | 2024-12-16 10:01 | XMS_ITS | Clinical Summary ---
Author Organization [facility] [employer] Address [address] [place] [address] Care Team Providers Care Signaler Name Role Phone David Yuen MD Primary Care Provider [phone] Source Comments [facility] [employer],non-owned Affiliates and Associated Physician Practices is amultiple site organization consisting of ambulatory clinics and hospital sitesin [place], [place], [place] and [place]. This disclosure is being madepursuant to the Care Everywhere program and may not contain all information available regarding this patient. Last updated 18.[facility] [employer] Allergies Active Allergy Reactions Criticality Noted Date Comments Codeine Anaphylaxis High 09/05/2019 Medications * Be aware that medications may not be up to date on this document. Alwaysverify current medications with the patient. clopidogrel (PLAVIX) 75 MG tablet Take 75 mg by mouth once daily Active aspirin (ASPIRIN) 81 MG chew tablet Take 81 mg by mouth once daily Active ezetimibe (ZETIA) 10 MG tablet Take 10 mg by mouth once daily Active atorvastatin (LIPITOR) 80 MG tablet Take 80 mg by mouth at bedtime Active lisinopril (PRINIVIL; ZESTRIL) 10 MG tablet Take 10 mg by mouth once daily Active furosemide (LASIX) 20 MG tablet Take 20 mg by mouth once daily Active metFORMIN (GLUCOPHAGE) 1000 MG tabletIndicatio ns:Type 2 Diabetes Mellitus,Do not take until Friday 09/08 Take 1,000 mg by mouth 2 times daily with morning and evening meal Active gabapentin (NEURONTIN) 600 MG tablet Take 600 mg by mouth 2 times daily Active gabapentin (NEURONTIN) 100 MG capsule Take 900 mg by mouth at bedtime Active traMADol (ULTRAM) 50 MG tablet Take 50 mg by mouth every 6 hours as needed for Pain Active levothyroxine (SYNTHROID) 200 MCG tablet Take 200 mcg by mouth daily before breakfast Active Active Problems Problem Noted Date Diagnosed Date Coronary artery disease invo lving [place] coronary artery of [place] heart 09/05/2019 Social History Tobacco Use Types Packs/Day Years Used Date Smoking Tobacco: Never Smokeless Tobacco: Never Alcohol Use Standard Drinks/Week Comments Never 0 (1 standard drink = 0.6 oz pur e alcohol) AUDIT-C Answer Date Recorded Frequency of Alcohol Consumption Never 09/05/2019 Average Number of Drinks Not on file 020 Frequency of Binge Drinking Not on file 08/25 Comments Unknown Sex and Gender Information Value Date Recorded Sex Assigned at Not on file Legal Sex Female 1:35 PM PUMP HOUSE TECHNICIAN Gender Identity Not on file Sexual Orientation Not on file Last Filed Vital Signs Vital Sign Reading Time Taken Comments Blood Pressure 155/94 09/06/2019 11:36 AM PUMP HOUSE TECHNICIAN Pulse 90 09/06/2019 11:36 AM PUMP HOUSE TECHNICIAN Temperature 37.1 C (98.7 F) 09/06/2019 11:36 AM PUMP HOUSE TECHNICIAN Respiratory Rate 19 09/06/2019 11:3 6 AM PUMP HOUSE TECHNICIAN Oxygen Saturation 96% 09/06/2019 11: 36 AM PUMP HOUSE TECHNICIAN Inhaled Oxygen Concentration - - Weight 125.6 kg (276 lb 12.8 oz) 2019 12:29 PM PUMP HOUSE TECHNICIAN Height 172.7 cm (5' 8 ) 09/05/2019 12:2 9 PM PUMP HOUSE TECHNICIAN Body Mass Index 42.09 09/05/2019 12:29 PM PUMP HOUSE TECHNICIAN Plan of Treatment Upcoming Encounters Date Type Department Care Team (Late st Contact Info) Description 12/24/2024 2:00 PM CDT Office Visit [facility] - Neurosurgery [address] [place] [address], [place] [address] Devang Moody MD [address] [place] [phone] Health Maintenance Due Date Last Done Comments COLOGUARD (AGES 45-75) - COL ON CA SCREENING 1961 COLON MONITORING 1961 COLONOSCOPY - COLON CA SCREENING 1961 CT COLONOGRAPHY - COLON CA SCREENING 1961 Colorectal Cancer Screening 1961 FIT - COLON CA SCREENING 1961 FLEX SIG - COLON CA SCREENING 1961 MAMMOGRAM 1961 PAP SMEAR 1961 HIV SCREENING 02/25/1976 HEPATITIS C SCREENING 02/20/1979 DTAP/TDAP/TD VACCINES (1 - Tdap) 02/25/1980 PNEUMOCOCCAL VACCINE 50+ (1 of 1 - PCV) 2011 ZOSTER VACCINE (1 of 2) 2011 Respiratory Syncytial Virus (RSV) Vaccine Pt: or over 60 yrs (1 - Risk 60-74 years 1-dose series) 2021 COVID-19 VACCINE ( - 2023-2 5 season) 2024 DEPRESSION SCREENING 07/25/2024 INFLUENZA VACCINE (Season Ended) 2025 HEPATITIS B VACCINE Aged Out No longe r eligible based on patient's age to complete this topic HIB VACCINE Aged Out No longer eligi ble based on patient's age to complete this topic HPV VACCINE Aged Out No longer eligi ble based on patient's age to complete this topic MENINGOCOCCAL (Group B) VACC INE SHARED DECISION-MAKING Aged Out No longer eligibl e based on patient's age to complete this topic MENINGOCOCCAL GROUPS A/C/Y/W VACCINE Aged Out No longer eligible b ased on patient's age to complete this topic Insurance [facility] Advance Directives * Full Code (Latest Code Status on File) Date Activated Date Inactivated Comments 09/05/2019 3:51 PM 09/06/2019 2:57 PM Care Teams Signaler Relationship Specialty Start Date End Date David Yuen MD [address] [phone] PCP - General Emergency Medicine 11/26/24
== END 2024-12-16 09:51 | disposition home or self-care (01) ==
PROVIDERS: PCP Family Medicine; Visit Provider Physician Assistant Surgical
DX: M75.122 Complete rotator cuff tear or rupture of left shoulder, not specified as traumatic (principal); M75.32 Calcific tendinitis of left shoulder; M25.412 Effusion, left shoulder; M19.012 Primary osteoarthritis, left shoulder
CPT/HCPCS: 73221